=== PATIENT | female | born 1975 | race Caucasian/White ===

== ENCOUNTER 2019-06-12 13:28 | Inpatient (IN) | payer MEDICARE, MEDICAID, SELFPAY ==
[2019-06-12] VITALS (47 sets, daily range): BP systolic 94–188; BP diastolic 74–146; PULSE 73–114; RESP 10–27; TEMP 36.7–36.8; O2SAT 90–100; BMI 53.4
--- NOTE | 2019-06-12 13:40 | ED_ITS ---
Entered by Riana Colon, acting as scribe for HPI - Nausea/Vomiting/Diarrhea General: Chief complaint: Nausea/Vomiting/Diarrhea Stated complaint: abnormal labs,sent by doc Time Seen by Provider: 06/12/19 13:44 History of Present Illness: HPI Narrative: 44yo female presents with nausea and vomiting. Patient has been taking about 30 tabs of tylenol and benadryl daily. She denies any suicidal thoughts but states she just wants to sleep. She is seen at [facility]. Patient took 8 Tylenol this morning. Associated nausea: Yes Associated symtoms: Reports nausea; Denies change in vision, chest pain, dizziness, dysuria, headache(s) or palpitations Review of Systems Const: Denies: fever, chills or body aches Eyes: Denies: change in vision or blurry vision ENMT: Denies: throat pain, oral sores/lesions, dental pain, nasal discharge or nasal congestion Card: Denies: chest pain or palpitations Resp: Denies: shortness of breath GI: Reports: nausea and vomiting : Denies: flank pain, painful urination, urinary frequency, urinary urgency, urinary incontinence or blood in urine Musc: Denies: neck pain, back pain, extremity pain, extremity swelling, joint pain or joint swelling Skin/Breast: Denies: rash, itching or redness Neuro: Denies: headache, numbness in extremities, weakness in extremities, changes in sensation, lack of coordination, difficulty walking, frequent falls, dizziness, vertigo or confusion Psych: Denies: suicidal ideation Endo: Denies: excessive urination, excessive thirst, tired all the time or cold intolerance Hugo/Lymph: Denies: easy bruising, easy bleeding, petechiae, enlarged lymph nodes or tender lymph nodes PFSH ED PFSH: Medical History (Updated 06/12/19 @ 15:57 by Daniel Mccord MD) COPD (chronic obstructive pulmonary disease) Hypothyroidism Morbidly obese QUOC (obstructive sleep apnea) Polysubstance abuse Schizo-affective schizophrenia Surgical History (Updated 06/12/19 @ 15:46 by Daniel Mccord MD) History of appendectomy History of cholecystectomy Family History (Updated 06/12/19 @ 15:47 by Daniel Mccord MD) Other Hyperparathyroidism Psychiatric illness Social History (Updated 06/12/19 @ 15:47 by Daniel Mccord MD) Smoking and tobacco status: former smoker Alcohol intake: never Household members: significant other Housing: House Physical Exam Const: COMMON NORMALS: no apparent distress, oriented x3 and alert GENERAL APPEARANCE: cooperative, comfortable, well kempt and well developed NUTRITIONAL APPEARANCE: overweight ORIENTATION/CONSCIOUSNESS: Yes awake, Yes oriented to person, Yes oriented to place and Yes oriented to time HENMT: COMMON NORMALS: normocephalic, EAC's normal, TM's normal bilaterally and external nose normal HEAD & SCALP: normocephalic NOSE: external nose normal EXTERNAL AUDITORY CANAL: EAC's normal TYMPANIC MEMBRANE: TM's normal bilaterally MOUTH: oral and palatal mucosa normal, lip normal and tongue normal THROAT: posterior oropharynx normal and tonsils normal Eye: COMMON NORMALS: PERRL, EOMs intact bilaterally and conjunctivae normal CONJUNCTIVA: Yes conjunctivae normal PUPIL: Yes PERRL Neck/C-Spine: COMMON NORMALS: full ROM, no lymphadenopathy, supple, no meningeal signs and thyroid normal THYROID: thyroid normal and asymmetrical Lymph: LYMPHATIC: no lymphadenopathy noted Resp: COMMON NORMALS: normal respiratory effort and clear to auscultation bilaterally AUSCULTATION: clear to auscultation bilaterally Cardio: COMMON NORMALS: regular rate and regular rhythm RATE: regular rate RHYTHM: regular rhythm HEART SOUNDS: no murmurs GI: COMMON NORMALS: normal to inspection, nondistended, normoactive bowel sounds, soft to palpation and no hepatosplenomegaly PALPATION: Yes soft and Yes no hepatosplenomegaly : COMMON NORMALS: Yes no CVA tenderness BLADDER/KIDNEY EXAM: Yes no CVA tenderness Back/Pelvis: COMMON NORMALS: no CVA tenderness LUMBAR SPINE/LOWER BACK: Yes normal to inspection Extremity: COMMON NORMALS: normal to inspection Neuro: COMMON NORMALS: oriented x3 SENSORIUM/ORIENTATION: Yes alert, Yes oriented to person, Yes oriented to place and Yes oriented to time MENINGEAL SIGNS: Yes no meningeal signs Psych: COMMON NORMALS: mental status grossly normal and speech normal APPEARANCE: Yes well kempt SPEECH: Yes normal speech THOUGHT CONTENT: Yes normal thought content and No suicidality Skin: COMMON NORMALS: no rashes or lesions noted and skin turgor normal GENERAL SKIN EXAM: no rashes or lesions noted and turgor normal Course ED course: Patient Tylenol less than expected, liver enzymes not significantly elevated. Discussed with Dr. avila recommends admitting the patient to medical floor for clearance and then consult with psych once acetaminophen level has normalized. Vital Signs: Vital signs: Vital Signs Temperature 98.0 F 06/14/19 13:10 Pulse Rate 100 06/14/19 13:10 Respiratory Rate 20 H 06/14/19 13:10 Blood Pressure 100/68 06/14/19 13:10 Pulse Oximetry 93 06/14/19 13:10 MDM - Nausea/Vomiting/Diarrhea Lab Data: Labs: Lab Results 06/12/19 06/12/19 06/12/19 Range/Units 13:50 13:50 13:50 WBC 8.4 (4.0-10.0) 10^3/ uL RBC 3.89 L (4.1-5.3) 10^6/u L Hgb 11.2 L (11.5-15.3) g/dL Hct 34.6 L (37.0-47.0) % MCV 88.9 (81-99) fL MCH 28.8 (28.0-34.0) pg MCHC 32.4 (30.0-36.0) g/dL RDW 16.9 H (12.1-15.1) % Plt Count 320 (130-400) 10^3/c mm MPV 10.9 H (7.4-10.4) fL Neut % (Auto) 62.9 % Lymph % (Auto) 29.2 % Latimer % (Auto) 5.1 % Eos % (Auto) 1.7 % Baso % (Auto) 0.7 % Neut # (Auto) 5.3 (1.8-7.7) 10^3/u L Lymph # (Auto) 2.4 (0.8-4.8) 10^3/u L Latimer # (Auto) 0.4 (0.2-0.9) 10^3/u L Eos # (Auto) 0.1 (0.0-0.8) 10^3/u L Baso # (Auto) 0.1 (0.0-0.1) 10^3/u L Nucleated RBC % (a uto) 0 % Nucleated RBCs # 0.0 /100WBC PT 13.90 H (10.5-13.3) SECO NDS INR 1.04 (0.8-1.2) Sodium 137 (136-145) mmol/L Potassium 3.8 (3.5-5.1) mmol/L Chloride 103 (98-107) mmol/L Carbon Dioxide 20 L (22-29) mmol/L Anion Gap 17.8 (5-19) BUN 7 (6-20) mg/dL Creatinine 0.6 (0.5-0.9) mg/dL GFR Calculation 109.1 (90-130) mL/min Glucose 120 H (65-115) mg/dL Calcium 7.7 L (8.5-10.5) mg/dL Iron (37-145) ug/dL TIBC mcg/dl % Saturation (20-50) % Unsat Iron Binding (112-347) ug/dL Total Bilirubin 0.3 (0.15-1.2) mg/dL AST 21 (0-32) U/L ALT 14 (0-33) U/L Alkaline Phosphata se 75 (35-105) IU/L Total Protein 6.7 (6.6-8.7) g/dL Albumin 3.5 (3.5-5.2) g/dL Globulin 3.2 (1.3-4.6) g/dL Lipase (13-60) U/L Procalcitonin (0-0.5) ng/mL TSH (0.27-4.20) uIU/ mL Urine Color (Yellow) Urine Appearance (CLEAR) Urine pH (5-7) Ur Specific Gravit y (1.005-1.030) Urine Protein (Negative) Urine Glucose (UA) (Normal) Urine Ketones (Negative) Urine Blood (Negative) Urine Nitrate (Negative) Urine Bilirubin (NEGATIVE) Urine Urobilinogen (Negative) mg/dL Ur Leukocyte Olga ase (Negative) Salicylates (3-10) mg/dL Urine Opiates Scre en (Negative) ng/mL U Opiates 300ng/mL cut (Negative) ng/mL Ur Oxycodone Scree n (Negative) ng/mL Urine Methadone Sc reen (Negative) ng/mL Acetaminophen 49.0 H (10-30) ug/mL Ur Barbiturates Sc reen (Negative) ng/mL U Tricyclic Antide press (Negative) ng/mL Ur Phencyclidine S crn (Negative) ng/mL Ur Amphetamines Sc reen (Negative) ng/mL U Methamphetamines Scrn (Negative) ng/mL Urine MDMA (Negative) ng/mL U Benzodiazepines Scrn (Negative) ng/mL Urine Cocaine Scre en (Negative) ng/mL U Marijuana (THC) Screen (Negative) ng/mL Ethyl Alcohol (0-10) mg/dL 06/12/19 06/12/19 06/12/19 Range/Units 13:50 13:50 13:50 WBC (4.0-10.0) 10^3/ uL RBC (4.1-5.3) 10^6/u L Hgb (11.5-15.3) g/dL Hct (37.0-47.0) % MCV (81-99) fL MCH (28.0-34.0) pg MCHC (30.0-36.0) g/dL RDW (12.1-15.1) % Plt Count (130-400) 10^3/c mm MPV (7.4-10.4) fL Neut % (Auto) % Lymph % (Auto) % Latimer % (Auto) % Eos % (Auto) % Baso % (Auto) % Neut # (Auto) (1.8-7.7) 10^3/u L Lymph # (Auto) (0.8-4.8) 10^3/u L Latimer # (Auto) (0.2-0.9) 10^3/u L Eos # (Auto) (0.0-0.8) 10^3/u L Baso # (Auto) (0.0-0.1) 10^3/u L Nucleated RBC % (a uto) % Nucleated RBCs # /100WBC PT (10.5-13.3) SECO NDS INR (0.8-1.2) Sodium (136-145) mmol/L Potassium (3.5-5.1) mmol/L Chloride (98-107) mmol/L Carbon Dioxide (22-29) mmol/L Anion Gap (5-19) BUN (6-20) mg/dL Creatinine (0.5-0.9) mg/dL GFR Calculation (90-130) mL/min Glucose (65-115) mg/dL Calcium (8.5-10.5) mg/dL Iron 46 (37-145) ug/dL TIBC 336 mcg/dl % Saturation 13.6 L (20-50) % Unsat Iron Binding 290 (112-347) ug/dL Total Bilirubin (0.15-1.2) mg/dL AST (0-32) U/L ALT (0-33) U/L Alkaline Phosphata se (35-105) IU/L Total Protein (6.6-8.7) g/dL Albumin (3.5-5.2) g/dL Globulin (1.3-4.6) g/dL Lipase 16 (13-60) U/L Procalcitonin 24.93 H (0-0.5) ng/mL TSH 2.20 (0.27-4.20) uIU/ mL Urine Color (Yellow) Urine Appearance (CLEAR) Urine pH (5-7) Ur Specific Gravit y (1.005-1.030) Urine Protein (Negative) Urine Glucose (UA) (Normal) Urine Ketones (Negative) Urine Blood (Negative) Urine Nitrate (Negative) Urine Bilirubin (NEGATIVE) Urine Urobilinogen (Negative) mg/dL Ur Leukocyte Olga ase (Negative) Salicylates (3-10) mg/dL Urine Opiates Scre en (Negative) ng/mL U Opiates 300ng/mL cut (Negative) ng/mL Ur Oxycodone Scree n (Negative) ng/mL Urine Methadone Sc reen (Negative) ng/mL Acetaminophen (10-30) ug/mL Ur Barbiturates Sc reen (Negative) ng/mL U Tricyclic Antide press (Negative) ng/mL Ur Phencyclidine S crn (Negative) ng/mL Ur Amphetamines Sc reen (Negative) ng/mL U Methamphetamines Scrn (Negative) ng/mL Urine MDMA (Negative) ng/mL U Benzodiazepines Scrn (Negative) ng/mL Urine Cocaine Scre en (Negative) ng/mL U Marijuana (THC) Screen (Negative) ng/mL Ethyl Alcohol (0-10) mg/dL 06/12/19 06/12/19 06/12/19 Range/Units 13:55 13:55 13:55 WBC (4.0-10.0) 10^3/ uL RBC (4.1-5.3) 10^6/u L Hgb (11.5-15.3) g/dL Hct (37.0-47.0) % MCV (81-99) fL MCH (28.0-34.0) pg MCHC (30.0-36.0) g/dL RDW (12.1-15.1) % Plt Count (130-400) 10^3/c mm MPV (7.4-10.4) fL Neut % (Auto) % Lymph % (Auto) % Latimer % (Auto) % Eos % (Auto) % Baso % (Auto) % Neut # (Auto) (1.8-7.7) 10^3/u L Lymph # (Auto) (0.8-4.8) 10^3/u L Latimer # (Auto) (0.2-0.9) 10^3/u L Eos # (Auto) (0.0-0.8) 10^3/u L Baso # (Auto) (0.0-0.1) 10^3/u L Nucleated RBC % (a uto) % Nucleated RBCs # /100WBC PT (10.5-13.3) SECO NDS INR (0.8-1.2) Sodium (136-145) mmol/L Potassium (3.5-5.1) mmol/L Chloride (98-107) mmol/L Carbon Dioxide (22-29) mmol/L Anion Gap (5-19) BUN (6-20) mg/dL Creatinine (0.5-0.9) mg/dL GFR Calculation (90-130) mL/min Glucose (65-115) mg/dL Calcium (8.5-10.5) mg/dL Iron (37-145) ug/dL TIBC mcg/dl % Saturation (20-50) % Unsat Iron Binding (112-347) ug/dL Total Bilirubin (0.15-1.2) mg/dL AST (0-32) U/L ALT (0-33) U/L Alkaline Phosphata se (35-105) IU/L Total Protein (6.6-8.7) g/dL Albumin (3.5-5.2) g/dL Globulin (1.3-4.6) g/dL Lipase (13-60) U/L Procalcitonin (0-0.5) ng/mL TSH (0.27-4.20) uIU/ mL Urine Color Yellow (Yellow) Urine Appearance Clear (CLEAR) Urine pH 5 (5-7) Ur Specific Gravit y 1.010 (1.005-1.030) Urine Protein Neg (Negative) Urine Glucose (UA) Norm (Normal) Urine Ketones Negative (Negative) Urine Blood Neg (Negative) Urine Nitrate Negative (Negative) Urine Bilirubin Neg (NEGATIVE) Urine Urobilinogen Norm (Negative) mg/dL Ur Leukocyte Olga ase Negative (Negative) Salicylates (3-10) mg/dL Urine Opiates Scre en Negative Negative (Negative) ng/mL U Opiates 300ng/mL cut Negative (Negative) ng/mL Ur Oxycodone Scree n Negative (Negative) ng/mL Urine Methadone Sc reen Negative (Negative) ng/mL Acetaminophen (10-30) ug/mL Ur Barbiturates Sc reen Negative Negative (Negative) ng/mL U Tricyclic Antide press Positive H (Negative) ng/mL Ur Phencyclidine S crn Negative Negative (Negative) ng/mL Ur Amphetamines Sc reen Negative Negative (Negative) ng/mL U Methamphetamines Scrn Negative (Negative) ng/mL Urine MDMA Positive H (Negative) ng/mL U Benzodiazepines Scrn Negative Negative (Negative) ng/mL Urine Cocaine Scre en Negative Negative (Negative) ng/mL U Marijuana (THC) Screen Positive H Positive H (Negative) ng/mL Ethyl Alcohol (0-10) mg/dL 06/12/19 Range/Units 15:00 WBC (4.0-10.0) 10^3/ uL RBC (4.1-5.3) 10^6/u L Hgb (11.5-15.3) g/dL Hct (37.0-47.0) % MCV (81-99) fL MCH (28.0-34.0) pg MCHC (30.0-36.0) g/dL RDW (12.1-15.1) % Plt Count (130-400) 10^3/c mm MPV (7.4-10.4) fL Neut % (Auto) % Lymph % (Auto) % Latimer % (Auto) % Eos % (Auto) % Baso % (Auto) % Neut # (Auto) (1.8-7.7) 10^3/u L Lymph # (Auto) (0.8-4.8) 10^3/u L Latimer # (Auto) (0.2-0.9) 10^3/u L Eos # (Auto) (0.0-0.8) 10^3/u L Baso # (Auto) (0.0-0.1) 10^3/u L Nucleated RBC % (a uto) % Nucleated RBCs # /100WBC PT (10.5-13.3) SECO NDS INR (0.8-1.2) Sodium (136-145) mmol/L Potassium (3.5-5.1) mmol/L Chloride (98-107) mmol/L Carbon Dioxide (22-29) mmol/L Anion Gap (5-19) BUN (6-20) mg/dL Creatinine (0.5-0.9) mg/dL GFR Calculation (90-130) mL/min Glucose (65-115) mg/dL Calcium (8.5-10.5) mg/dL Iron (37-145) ug/dL TIBC mcg/dl % Saturation (20-50) % Unsat Iron Binding (112-347) ug/dL Total Bilirubin (0.15-1.2) mg/dL AST (0-32) U/L ALT (0-33) U/L Alkaline Phosphata se (35-105) IU/L Total Protein (6.6-8.7) g/dL Albumin (3.5-5.2) g/dL Globulin (1.3-4.6) g/dL Lipase (13-60) U/L Procalcitonin (0-0.5) ng/mL TSH (0.27-4.20) uIU/ mL Urine Color (Yellow) Urine Appearance (CLEAR) Urine pH (5-7) Ur Specific Gravit y (1.005-1.030) Urine Protein (Negative) Urine Glucose (UA) (Normal) Urine Ketones (Negative) Urine Blood (Negative) Urine Nitrate (Negative) Urine Bilirubin (NEGATIVE) Urine Urobilinogen (Negative) mg/dL Ur Leukocyte Olga ase (Negative) Salicylates < 0.3 L (3-10) mg/dL Urine Opiates Scre en (Negative) ng/mL U Opiates 300ng/mL cut (Negative) ng/mL Ur Oxycodone Scree n (Negative) ng/mL Urine Methadone Sc reen (Negative) ng/mL Acetaminophen (10-30) ug/mL Ur Barbiturates Sc reen (Negative) ng/mL U Tricyclic Antide press (Negative) ng/mL Ur Phencyclidine S crn (Negative) ng/mL Ur Amphetamines Sc reen (Negative) ng/mL U Methamphetamines Scrn (Negative) ng/mL Urine MDMA (Negative) ng/mL U Benzodiazepines Scrn (Negative) ng/mL Urine Cocaine Scre en (Negative) ng/mL U Marijuana (THC) Screen (Negative) ng/mL Ethyl Alcohol < 10 (0-10) mg/dL Discharge Plan Discharge Patient Disposition: Admitted As Inpatient Admit Provider: Daniel Mccord Condition: Stable Discharge Orders: Discharge Order (Routine); Ordered 06/14/19 Ordered By: Daniel Mccord Referrals: Elizabeth Lee MD [Primary Care Provider] - 2 weeks (Please call Saturday to set up a follow up appointment) [facility], [Staff Physician] - 2 weeks (Please call Saturday to set up a follow up appointment) Discharge Diet: As Directed Discharge Activity: Resume usual activity Patient Instructions: Acetaminophen Overdose (DC) Additional Instructions: [place] diet consisting of bananas, rice, applesauce, toast for next 7 to 10 days and advance eventually. Please avoid Tylenol at least for next 1 to 2 months. If taking ibuprofen as discussed do not take more than 3 tablets a day spread every 8 hours with meals. Please speak with your pain doctor in [place] if possible to lower Suboxone 4/1 every 8 hours. Discharge Date/Time: 06/12/19 16:20 Coding Level of Care Code ED Heading And Priming Operator for Chg Fwd Exam Comprehensive The documentation recorded by the Darlene villeda Bailey Leadawn, accurately reflects the service I personally performed and the decisions made by Dashawn walls Curtis L, DO Jun 12, 2019 13:28
--- NOTE | 2019-06-12 13:48 | ECG_ITS ---
Measurements Intervals [place] Rate: 92 P: 60 MT: 131 QRS: 14 QRSD: 89 T: 31 QT: 362 QTc: 449 SINUS RHYTHM Compared to ECG 11/22/2017 14:37:06 Sinus tachycardia no longer present T-wave abnormality no longer present Electronically Signed On 06-12-2019 14:15:39 CATERPILLAR DRIVER by Julius Chang M.D. [email or web address]
--- NOTE | 2019-06-12 14:04 | PC.NURSE ---
Patient states she has been having trouble sleeping so she started taking Tylenol PM, 8-10 pills three times daily. Patient states that she just wants to sleep, states she is so tired, but has trouble falling asleep. Patient has c/o pain in the abdomen with palpation and states she has been unable to keep solid foods down for 3-5 days now, she can however, drink liquids. Patient questioned about increased depression at this time, patient denies an increase or change in her depression. Patient questioned regarding suicidal ideation, patient denies multiple times that she is suicidal, she states she does not want to .
[2019-06-12 14:12] LABS: Basophils # 0.1 10^3/uL (0.0-0.1); Basophils % 0.7 %; Eosinophils # 0.1 10^3/uL (0.0-0.8); Eosinophils % 1.7 %; Hematocrit 34.6 % (37.0-47.0); Hemoglobin 11.2 g/dL (11.5-15.3); Lymphocytes # 2.4 10^3/uL (0.8-4.8); Lymphocytes % 29.2 %; Mean Corpuscular HGB Conc 32.4 g/dL (30.0-36.0); Mean Corpuscular Hemoglobin 28.8 pg (28.0-34.0); Mean Corpuscular Volume 88.9 fL (81-99); Mean Platelet Volume 10.9 fL (7.4-10.4); Monocytes # 0.4 10^3/uL (0.2-0.9); Monocytes % 5.1 %; Neutrophils # 5.3 10^3/uL (1.8-7.7); Neutrophils % 62.9 %; Nucleated Red Blood Cells % 0 %; Platelet Count 320 10^3/cmm (130-400); Red Blood Count 3.89 10^6/uL (4.1-5.3); Red Cell Distribution Width 16.9 % (12.1-15.1); White Blood Count 8.4 10^3/uL (4.0-10.0)
[2019-06-12 14:13] LABS: Add Urine Microscopic? NO
[2019-06-12 14:20] LABS: Alanine Aminotransferase 14 U/L (0-33); Albumin Level 3.5 g/dL (3.5-5.2); Alkaline Phosphatase 75 IU/L (35-105); Anion Gap 17.8 (5-19); Aspartate Amino Transferase 21 U/L (0-32); Blood Urea Nitrogen 7 mg/dL (6-20); Calcium 7.7 mg/dL (8.5-10.5); Carbon Dioxide 20 mmol/L (22-29); Chloride 103 mmol/L (98-107); Globulin 3.2 g/dL (1.3-4.6); Glomerular Filtration Rate 109.1 mL/min (90-130); Glucose 120 mg/dL (65-115); Potassium 3.8 mmol/L (3.5-5.1); Sodium 137 mmol/L (136-145); Total Bilirubin 0.3 mg/dL (0.15-1.2); Total Protein 6.7 g/dL (6.6-8.7)
[2019-06-12 14:24] LABS: Bilirubin Urine Neg (NEGATIVE); Blood Urine Neg (Negative); Glucose Urine UA Norm (Normal); Ketones Urine Negative (Negative); Leukocyte Esterase Urine Negative (Negative); Nitrate Urine Negative (Negative); Protein Urine Neg (Negative); Urine Appearance Clear (CLEAR); Urine Color Yellow (Yellow); Urobilinogen Urine Norm (Negative); pH Urine 5 (5-7)
[2019-06-12 14:48] LABS: Amphetamines Screen Urine Negative (Negative); Barbiturates Screen Urine Negative (Negative); Benzodiazepines Screen Urine Negative (Negative); Cocaine Screen Urine Negative (Negative); Opiate Screen Urine Negative (Negative); PCP Screen Urine Negative (Negative); THC Screen Urine Positive (Negative)
--- NOTE | 2019-06-12 14:48 | PC.NURSE ---
Spoke with poison control. They will be faxing over a packet specific to our patient's ingestion and will call back at a later time to follow up on the patient.
[2019-06-12] MEDS: acetylcysteine 15,000 MG in dextrose 5% 250 ML 325 MG IV (14:59)
[2019-06-12 15:04] LABS: INR 1.04 (0.8-1.2)
[2019-06-12] MEDS: famotidine 20 mg Tablet PO (15:16)
[2019-06-12 15:36] LABS: Amphetamines Screen Urine Negative (Negative); Barbiturates Screen Urine Negative (Negative); Benzodiazepines Screen Urine Negative (Negative); Cocaine Screen Urine Negative (Negative); Methamphetamines Urine Screen Negative (Negative); Methylenedioxymethamphetamine Positive (Negative); Opiate Screen Urine Negative (Negative); Opiate Urine Negative (Negative); PCP Screen Urine Negative (Negative); THC Screen Urine Positive (Negative); Tricyclic Antidepressants UR Positive (Negative)
[2019-06-12 15:38] LABS: Alcohol Level < 10 mg/dL (0-10); Salicylate < 0.3 mg/dL (3-10)
--- NOTE | 2019-06-12 15:39 | P.HP_ITS ---
Providers/Chief Complaint Primary Care Provider: Elizabeth Lee MD Chief Complaint: abnormal labs,sent by doc History of Present Illness Darlin Gillespie is a 44 year old female with past medical history of polysubstance abuse, she is less effective disorder, history of suicidal attempts, history of Seroquel overdose,h/o tylenol overdose causing liver damage in past as per records, morbid obesity, COPD, QUOC with surgical history of gastric bypass, cholecystectomy, appendectomy who presents to the ER today because of right upper quadrant abdominal pain getting worse for last 4 to 5 days associated with vomiting for the last 10 to 12 days. She stated vomiting is usually nonprojectile, not bloodstained, not foul-smelling usually consists of whatever she eats. She states she is not able to eat at present for last 2 to 3 days. Of note she also gives history of taking 8 to 10 tablets 3 times a day of Tylenol PM for last 30 days because of knee pain. She states she was taking that much dose just to make sure she can sleep without being in pain. She denies of having any active suicidal ideations or homicidal ideations. She denies of having any diarrhea, melena, hematochezia, dysuria, headache, dizziness, palpitations, blurry vision, dryness or increased salivation. In ER she was found to have a Tylenol level of 49 and she was started on a loading dose of acetylcysteine. Review of Systems Const: Denies: fever, chills, body aches, change in appetite, malaise, night sweats, diaphoresis, change in sleep pattern, daytime sleepiness or snoring Eyes: Denies: change in vision, blurry vision, photophobia, eye discomfort or eye discharge ENMT: Denies: throat pain, enlarged tonsils, hoarseness, mouth pain, oral sores/lesions, dry mouth, tinnitus, nasal congestion or post nasal drip Card: Denies: chest pain, palpitations, irregular heart rhythm, edema, swelling of feet/ankles, lightheadedness, syncope, pre-syncope, shortness of breath on exertion, shortness of breath when lying down, leg pain with exertion or bluish discoloration of hands/feet Resp: Denies: shortness of breath, productive cough, non-productive cough, wheezing, stridor, pain on inspiration, change in phlegm color, coughing up blood or chest congestion GI: Reports: abdominal pain, nausea and vomiting; Denies: vomiting blood, coffee grounds in vomit, difficulty swallowing, heartburn/indigestion, diarrhea, constipation, bloating, cramping, change in bowel habits, painful bowel movements, blood in stool or black tarry stool : Denies: flank pain, painful urination, urinary frequency, urinary urgency, urinary hesitancy, nighttime urination or blood in urine Musc: Denies: neck pain, back pain, extremity pain, joint pain, joint swelling, redness, joint stiffness or limited range of motion Neuro: Denies: headache, numbness in extremities, weakness in extremities, changes in sensation, lack of coordination, difficulty walking, frequent falls, dizziness, vertigo, confusion, slurred speech, difficulty communicating thoughts or seizure-like activity Psych: Denies: anxiety, depression, mood swings, panic attacks, hopelessness or irritability Endo: Denies: excessive urination, excessive thirst, tired all the time, cold intolerance, excessive sweating, flushing or heat intolerance Hugo/Lymph: Denies: easy bruising or easy bleeding All/Imm: Denies: tongue swelling, facial swelling or acute wheezing Medications/Allergies Home Medications Medication Instructions Recorded Confirmed Last Taken Type albuterol sulfate 2 puff INHALATION Q4H PRN 06/12/19 06/12/19 06/11/19 History buprenorphine-naloxone 1 film SUBLINGUAL Q8H 06/12/19 06/12/19 Unknown History buspirone 15 mg PO TID 06/12/19 06/12/19 Unknown History calcitriol 0.5 mcg PO BID 06/12/19 06/12/19 06/11/19 History calcium carbonate [Calcium 500] 500 mg PO DAILY 06/12/19 06/12/19 06/11/19 History cyproheptadine 8 mg PO BEDTIME 06/12/19 06/12/19 06/11/19 History erenumab-aooe [Aimovig 70 mg SUBCUT Q30D 06/12/19 06/12/19 05/23/19 History Autoinjector] gabapentin 800 mg PO DAILY 06/12/19 06/12/19 06/11/19 History levothyroxine 25 mcg PO DAILY 06/12/19 06/12/19 06/11/19 History meloxicam 7.5 mg PO BID 06/12/19 06/12/19 06/11/19 History pantoprazole 40 mg PO DAILY 06/12/19 06/12/19 06/11/19 History risperidone 3 mg PO BEDTIME 06/12/19 06/12/19 06/11/19 History rizatriptan See Rx Instructions .ROUTE .COMPLEX 06/12/19 06/12/19 Unknown History sertraline 100 mg PO DAILY 06/12/19 06/12/19 Unknown History topiramate [Topamax] 100 mg PO BID 06/12/19 06/12/19 06/11/19 History trazodone 150 - 300 mg PO BEDTIME 06/12/19 06/12/19 06/12/19 History Allergies Allergy/AdvReac Type Severity Reaction Status Date / Time cephalexin [From Keflex] Allergy ALGY-Swell Verified 06/12/19 13:35 Lip/Tongue/Throat doxycycline Allergy ALGY-Rash Verified 06/12/19 13:35 PFSH Acute PFSH: Medical History (Updated 06/12/19 @ 15:57 by Daniel Mccord MD) COPD (chronic obstructive pulmonary disease) Hypothyroidism Morbidly obese QUOC (obstructive sleep apnea) Polysubstance abuse Schizo-affective schizophrenia Surgical History (Updated 06/12/19 @ 15:46 by Daniel Mccord MD) History of appendectomy History of cholecystectomy Family History (Updated 06/12/19 @ 15:47 by Daniel Mccord MD) Other Hyperparathyroidism Psychiatric illness Social History (Updated 06/12/19 @ 15:47 by Daniel Mccord MD) Smoking and tobacco status: former smoker Alcohol intake: never Substance/Drug Use: former Household members: significant other Housing: House Vitals/I&O/Wt Last Vital Signs Temp 98.3 F 06/12/19 13:33 Pulse 79 06/12/19 14:01 Resp 16 06/12/19 14:01 BP 172/105 06/12/19 14:01 Pulse Ox 100 06/12/19 14:01 Weight last 48 hrs Weight 136.985 kg Physical Exam Narrative: EXAM NARRATIVE: General: No acute distress, AO x3 HEENT: PERRLA, pupils bilaterally equal and reactive Chest: Normal vesicular breath sounds, no added sounds, equal good air entry bilaterally CVS: S1-S2 regular, no murmurs, no tachycardia, no gallops, no rubs Abdomen: Soft, nontender, no organomegaly, bowel sounds present Neuro: No focal deficits, no facial deformity, AO x3, power 5/5 in all limbs Data : 06/12/19 13:50 06/12/19 13:50 A&P Assessment and plan (1) Tylenol overdose: Status: Acute Code(s): T39.1X1A - Poisoning by 4-Aminophenol derivatives, accidental (unintentional), initial encounter (2) Polysubstance abuse: Status: Acute Code(s): F19.10 - Other psychoactive substance abuse, uncomplicated (3) COPD (chronic obstructive pulmonary disease): Status: Acute Code(s): J44.9 - Chronic obstructive pulmonary disease, unspecified (4) QUOC (obstructive sleep apnea): Status: Acute Code(s): G47.33 - Obstructive sleep apnea (adult) (pediatric) (5) Morbidly obese: Status: Acute Code(s): E66.01 - Morbid (severe) obesity due to excess calories (6) Schizo-affective schizophrenia: Status: Acute Code(s): F25.9 - Schizoaffective disorder, unspecified (7) Hypothyroidism: Status: Acute Code(s): E03.9 - Hypothyroidism, unspecified (8) Right upper quadrant abdominal pain: Status: Acute Code(s): R10.11 - Right upper quadrant pain (9) Vomiting: Status: Acute Code(s): R11.10 - Vomiting, unspecified Additional A&P Information Tylenol overdose: Patient gives history of taking more than 30 tablets of Tylenol for last 30 days every day though her Tylenol levels on admission 49 which are elevated though not as high as 1 would expected. Patient does have right upper quadrant tenderness nausea and vomiting which is very concerning. Case discussed with poison control. We will plan to do N-acetylcysteine loading followed by maintenance dose. We will check Tylenol level and liver functions in 10 hours if liver functions are not worsening and Tylenol levels less than 10 can plan to discontinue the N- acetylcysteine treatment at that time. We will add urine drug screen 12, alcohol level, salicylate level to the labs will be done. Normal saline at 75 cc/h. Check CMP every 12 hours. Famotidine every 12 hour. Benadryl poisoning: Patient does not have any signs of cholinergic poisoning. She does not have any mydriasis, excessive secretion, dysuria, diarrhea but does have high blood pressure and mildly cardia. We will admit to ICU for further monitoring for respiratory status. RUQ pain and nausea: Multifactorial. Will check CT abdomen and liver USG Lipase level Full liquid diet for now and if tolerated will go for bland diet Zofran 4 mg as needed For hypertension: we will start patient on amlodipine 10 mg daily. Hydralazine 10 mg IV every 4 hours as needed for systolic blood pressure of more than 170 mmHg. History of COPD/QUOC: DuoNeb's every 6 hours. Oxygen supplementation keeping saturation 90%. Shizoeffective disorder: We will continue patient on a chronic psych medications. Have confirmed with the poison control that this medication would not be interacting with the current overdose. But will hold off on cyproheptadine given potential liver dysfunction. Decrease trazadone to 150 mg Confusion on saboxone dosage so will do 4mg/1mg BID to avoid withdrawal. 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
--- NOTE | 2019-06-12 15:56 | CT_ITS ---
WS: [id number] CT ABDOMEN PELVIS TECHNIQUE: Contrast-enhanced CT of the abdomen and pelvis with coronal and sagittal reformatted image s. CLINICAL INFORMATION: tylenol poisoning/ RUQ pain COMPARISON: August 22, 2016 DLP: 2039.[address] scans at [facility] use at least one of these dose optimization techniques: automat ed exposure control; mA and/or kV adjustment per patient size (includes targeted exams where dose is matched to clinical indication); or iterative reconstruction. FINDINGS: Mild diffuse fatty infiltration the liver. Normal portal vein and splenic vein. Cholecystectomy clips . Normal spleen. Normal pancreas. Lung bases are well aerated. Moderate esophageal hiatal hernia. Aviva or postoperative changes at the GE junction. Prior postoperative gastric bypass. Adrenal glands are n ormal. Normal renal parenchymal enhancement. No hydronephrosis. Normal caliber abdominal aorta. Normal sigmoid colon. 2 small supraumbilical ventral abdominal wall hernias with partial bulbous murali iation of adjacent colon. One of these hernias has a narrow neck and is at risk for incarceration. No evidence of ischemia or fluid. No evidence of small or large bowel obstruction. Tiny fat-containing umbilical hernia. Left ovarian cyst measuring 2.6 cm. Small right ovarian cyst me asuring 1.8 cm. No abdominal or inguinal lymphadenopathy. Moderate central canal stenosis L4-5 due to disc bulging with facet arthropathy ligament flavum hypertrophy. CT/CT abdomen pelvis w con* [id number] IMPRESSION: 1. Mild diffuse fatty infiltration of the liver. 2. Small supraumbilical ventral abdominal wall hernias with herniation of 2 sm all loops of colon. One of these hernias has a narrow neck and is at risk for i ncarceration. Sagittal series image 53 3. No evidence of small or large bowel obstruction. 4. Moderate esophageal hiatal hernia with prior gastric bypass. Postoperative changes at the GE junction. 5. Bilateral ovarian cysts larger on the left measuring 2.6 cm. This can be fo llowed up with ultrasound on an elective basis. 6. Prior cholecystectomy.
--- NOTE | 2019-06-12 15:56 | US_ITS ---
WS: [id number] ABDOMINAL ULTRASOUND LIMITED REASON FOR VISIT: ruq pain TECHNIQUE: Grayscale and Doppler ultrasound examination of the abdomen. FINDINGS: Pancreas: Poorly seen due to overriding gas. Abdominal aorta and IVC: Appears to be within normal limits. Liver: Liver measures 19.9 cm in length. Normal hepatopedal portal system circulation. Fatty infiltra tion. Gallbladder: Prior cholecystectomy. The common bile duct measured measured 0.58 cm Right kidney: Right kidney measures 9.9 cm x 5.8 cm x 4.2 cm. Right kidney cortex measures 1.43 cm. N o hydronephrosis no stones. US/US liver [id number] IMPRESSION: Enlarged liver with mild fatty infiltration. Status post cholecystectomy.
[2019-06-12] MEDS: iohexol 300 mg/mL 100 mL Btl 95 ML IV (16:24)
[2019-06-12 16:27] LABS: Iron 46 ug/dL (37-145); Percent Saturation 13.6 % (20-50); Total Iron Binding Capacity 336 mcg/dl; Unsaturated Iron Binding 290 ug/dL (112-347)
[2019-06-12 17:58] LABS: Procalcitonin 24.93 ng/mL (0-0.5)
[2019-06-12 19:05] LABS: Lipase 16 U/L (13-60)
[2019-06-12] MEDS: sodium chloride 0.9% 1,000 ML 75 ML IV (19:08)
[2019-06-12] MEDS: calcitriol 0.25 mcg Capsule 0.5 MCG PO (19:09)
[2019-06-12] MEDS: enoxaparin 40 mg/0.4 mL Syringe SUBCUT (19:10)
[2019-06-12] MEDS: amlodipine 10 mg Tablet PO (19:10)
[2019-06-12] MEDS: topiramate 100 mg Tablet PO (19:10)
[2019-06-12] MEDS: famotidine 20 mg/2 mL INJ IVP (19:10)
[2019-06-12] MEDS: buprenorphine-naloxone 4-1 mg Film 1 EACH SUBLINGUAL (19:11)
[2019-06-12] MEDS: ipratropium-albuterol 3 mL Neb INHALATION (20:41)
[2019-06-12] MEDS: ondansetron 2 mg/ML SDV 2 mL 4 MG IVP (20:45)
[2019-06-12] MEDS: trazodone 150 mg Tablet PO (22:38)
[2019-06-12] MEDS: morphine 4 mg/mL SDV 1 mL 2 MG IVP (22:39)
[2019-06-13] VITALS (10 sets, daily range): BP systolic 118; BP diastolic 75–77; PULSE 90–117; RESP 16–20; TEMP 36.8; O2SAT 96–99; BMI 53.1
[2019-06-13] MEDS: hyDRALAzine 20 mg/mL INJ 1 mL 10 MG IVP (02:05)
[2019-06-13] MEDS: ipratropium-albuterol 3 mL Neb INHALATION ×4 (02:05→20:13)
[2019-06-13 02:46] LABS: Alanine Aminotransferase 12 U/L (0-33); Albumin Level 3.2 g/dL (3.5-5.2); Alkaline Phosphatase 64 IU/L (35-105); Aspartate Amino Transferase 15 U/L (0-32); Globulin 2.9 g/dL (1.3-4.6); Total Bilirubin 0.3 mg/dL (0.15-1.2); Total Protein 6.1 g/dL (6.6-8.7)
[2019-06-13 02:59] LABS: Acetaminophen < 5.0 ug/mL (10-30)
[2019-06-13 04:44] LABS: Basophils % 0.4 %; Eosinophils % 0.2 %; Hematocrit 34.1 % (37.0-47.0); Hemoglobin 10.9 g/dL (11.5-15.3); Lymphocytes # 1.8 10^3/uL (0.8-4.8); Lymphocytes % 18.3 %; Mean Corpuscular Hemoglobin 29.5 pg (28.0-34.0); Mean Corpuscular Volume 92.2 fL (81-99); Mean Platelet Volume 10.8 fL (7.4-10.4); Monocytes # 0.8 10^3/uL (0.2-0.9); Monocytes % 7.7 %; Neutrophils # 7.3 10^3/uL (1.8-7.7); Neutrophils % 73.1 %; Nucleated Red Blood Cells % 0 %; Platelet Count 267 10^3/cmm (130-400); Red Cell Distribution Width 16.9 % (12.1-15.1); White Blood Count 9.9 10^3/uL (4.0-10.0)
[2019-06-13 04:52] LABS: INR 1.06 (0.8-1.2)
[2019-06-13] MEDS: famotidine 20 mg/2 mL INJ IVP ×2 (04:58→15:57)
[2019-06-13] MEDS: sodium chloride 0.9% 1,000 ML 75 ML IV (04:58)
[2019-06-13 05:13] LABS: Alanine Aminotransferase 12 U/L (0-33); Alkaline Phosphatase 62 IU/L (35-105); Anion Gap 17.5 (5-19); Aspartate Amino Transferase 15 U/L (0-32); Blood Urea Nitrogen 5 mg/dL (6-20); Calcium 7.6 mg/dL (8.5-10.5); Carbon Dioxide 21 mmol/L (22-29); Chloride 103 mmol/L (98-107); Globulin 3.1 g/dL (1.3-4.6); Glomerular Filtration Rate 134.7 mL/min (90-130); Glucose 129 mg/dL (65-115); Potassium 3.5 mmol/L (3.5-5.1); Sodium 138 mmol/L (136-145); Total Bilirubin 0.3 mg/dL (0.15-1.2); Total Protein 6.1 g/dL (6.6-8.7)
[2019-06-13] MEDS: ondansetron 2 mg/ML SDV 2 mL 4 MG IVP (06:21)
--- NOTE | 2019-06-13 08:49 | P.PN_ITS ---
Subjective Subjective: Interval history: Overnight patient's N-acetylcysteine was stopped at around 4 as her liver functions were normal and acetaminophen level was less than 5. This morning on my evaluation patient sitting comfortably in chair. Complains of mild nausea on and off, states her right upper quadrant pain is better but still bothering her little bit. Denies of having any vomiting, headache, rash, dysuria, constipation or diarrhea. Patient is concerned about 2 sores on her belly under the pannus. Vitals/I&O/Wt Last Vital Signs Temp 98.2 F 06/12/19 17:00 Pulse 90 06/13/19 07:54 Resp 16 06/13/19 07:54 BP 146/87 06/12/19 22:00 Pulse Ox 99 06/13/19 07:54 06/12/19 06/13/19 06/13/19 22:59 06:59 14:59 Intake Total 1150 / 1150 1498.48 / 2648.48 Balance 1150 / 1150 1498.48 / 2648.48 Weight last 48 hrs Weight 136.078 kg Weight 136.985 kg Physical Exam 2 Narrative: EXAM NARRATIVE: General: No acute distress, AO x3 HEENT: PERRLA, pupils bilaterally equal and reactive Chest: Normal vesicular breath sounds, no added sounds, equal good air entry bilaterally CVS: S1-S2 regular, no murmurs, no tachycardia, no gallops, no rubs Abdomen: Soft, nontender, no organomegaly, bowel sounds present. Patient does have 2 small well crusted, not foul-smelling no discharge superficial ulcers in the pannus. Neuro: No focal deficits, no facial deformity, AO x3, power 5/5 in all limbs Data : 06/13/19 04:16 06/13/19 04:16 A&P Assessment and plan (1) Tylenol overdose: Status: Acute Code(s): T39.1X1A - Poisoning by 4-Aminophenol derivatives, accidental (unintentional), initial encounter (2) Polysubstance abuse: Status: Acute Code(s): F19.10 - Other psychoactive substance abuse, uncomplicated (3) COPD (chronic obstructive pulmonary disease): Status: Acute Code(s): J44.9 - Chronic obstructive pulmonary disease, unspecified (4) QUOC (obstructive sleep apnea): Status: Acute Code(s): G47.33 - Obstructive sleep apnea (adult) (pediatric) (5) Morbidly obese: Status: Acute Code(s): E66.01 - Morbid (severe) obesity due to excess calories (6) Schizo-affective schizophrenia: Status: Acute Code(s): F25.9 - Schizoaffective disorder, unspecified (7) Hypothyroidism: Status: Acute Code(s): E03.9 - Hypothyroidism, unspecified (8) Right upper quadrant abdominal pain: Status: Acute Code(s): R10.11 - Right upper quadrant pain (9) Vomiting: Status: Acute Code(s): R11.10 - Vomiting, unspecified Additional A&P Information Tylenol overdose: Patient gives history of taking more than 30 tablets of Tylenol for last 30 days every day though her Tylenol levels on admission 49 which are elevated though not as high as 1 would expected. Patient does have right upper quadrant tenderness nausea and vomiting which is very concerning. Case discussed with poison control. Patient with a loading dose of N-acetylcysteine followed by 10-hour maintenance dose and it was stopped at 4 AM as her liver functions are normal and acetaminophen level was less than 5. We will check liver functions again at around 10 AM and if still stable can do will every 12 hours. Check Tylenol levels again at 7 PM on most 15 hours after stopping the N- acetylcysteine. Stop IV fluids as patient is able to tolerate oral diet well. Famotidine every 12 hour. Benadryl poisoning: Patient does not have any signs of cholinergic poisoning. She does not have any mydriasis, excessive secretion, dysuria, diarrhea blood pressures and heart rate better now. We will continue to monitor. RUQ pain and nausea: Multifactorial. CT liver studies along with liver ultrasound appreciated. Lipase level normal. Advance from full liquid to bland diet. Zofran 4 mg as needed For hypertension: Blood pressures acceptable. Continue with amlodipine 10 mg daily for now. History of COPD/QUOC: DuoNeb's every 6 hours. Oxygen supplementation keeping saturation 90%. Shizoeffective disorder: We will continue patient on a chronic psych medications. Have confirmed with the poison control that this medication would not be interacting with the current overdose. But will hold off on cyproheptadine given potential liver dysfunction. Decrease trazadone to 150 mg daily. Discussed in detail regarding patient Suboxone with the patient. Patient states she supposed to be on 8/2 every 8 hours as per her pain doctor in [place] though taking the medication feels her makes her feel horrible. For now we will continue her on 4/ every 12 hours and patient is agreeable to the same. Case discussed with Dr. Padilla from psychiatry. He does not think patient would need for required 96 hours hold. He does agree with stopping cyproheptadine and states all the other medication should be continued as it is. Lovenox Full liquid Famotidine FC Can transfer to the floors. Attestations Medical Necessity Statement*: Needs continued hospitalization for monitoring for tylenol poisoning. 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
[2019-06-13] MEDS: sertraline 100 mg Tablet PO (09:07)
[2019-06-13] MEDS: gabapentin 400 mg Capsule PO (09:07)
[2019-06-13] MEDS: amlodipine 10 mg Tablet PO (09:07)
[2019-06-13] MEDS: topiramate 100 mg Tablet PO ×2 (09:08→17:21)
[2019-06-13] MEDS: levothyroxine 25 mcg Tablet PO (09:08)
[2019-06-13] MEDS: buprenorphine-naloxone 4-1 mg Film 1 EACH SUBLINGUAL ×2 (09:08→17:20)
[2019-06-13] MEDS: calcitriol 0.25 mcg Capsule 0.5 MCG PO ×2 (09:08→17:20)
--- NOTE | 2019-06-13 10:16 | PM.PSYCN ---
Providers/Reason for Consult Consulting Physican/Specialty*: psychiatry Reason for Consult*: Request assessment of whether patient is a danger ot self or others. Attending Physician: Daniel Mccord MD Primary Care Provider: Elizabeth Lee MD Psych Consult HPI History of Present Illness Chief Compliant: I'm just try to get control of this pain. Darlin Gillespie is a 44 year old female Who was admitted to the intensive care unit due to medical complications of her excessive use of Tylenol to try and control her pain patient states that she has chronic constant pain in her right knee. This has continued to worsen over the past several years. She is seeing pain clinic in [place] and is being treated the Suboxone. However, the past 2 weeks, she has increased her use of Tylenol to extent where it has caused liver damage. The patient specifically states that she was not intending to harm herself she is actively in treatment at the [facility] and has a therapist that she sees there on a regular basis. They're currently working on the long-term effects of posttraumatic stress disorder use that she took as a child. She describes significant benefits from the therapy and has a good therapeutic relationship. She also is being seen by a nurse practitioner who is managing her medications. With the quality of these therapeutic interventions were questioned, the patient was able to detail her personal mental health history. She stated that before these treatments, she was being admitted to the neuropsychiatric unit on a monthly basis. She said she was admitted so often that they were threatening to put her under guardianship and have her placed in a long-term psychiatric facility. However, she has not been hospitalized on the neuropsychiatric unit for the past 3 years. She has not made any suicide attempts and she says she has not had suicidal thoughts at all at that time. She reports the absence of auditory or visual hallucinations. She has good hedonic capacity. A major concern for her is the lack of participation and goal-directed self-esteem supporting activities. She spends most of her time sitting on the couch watching TV petting her dog. While she receives a great deal of support from her dog, her self-esteem seems to come from outside sources. Appetite and sleep are good. She is hopeful for the future. She expresses regret over the events that led her to this hospitalization. Meds Current Medications: Current Medications Generic Name Dose Route Start Last Admin Trade Name Freq PRN Reason Stop Dose Admin Albuterol/Ipratrop ium 3 ml 06/12/19 21:00 06/13/19 08:00 Duoneb INHALATION 3 ml Q6H.RESPIRATORY S CH Administration Amlodipine Besylat e 10 mg 06/12/19 17:50 06/13/19 09:07 Norvasc PO 10 mg DAILY DREA Administration Buprenorphine/Nalo xone 1 each 06/12/19 18:00 06/13/19 09:08 Suboxone 4-1 Mg SUBLINGUAL 1 each BID DREA Administration Buspirone HCl 15 mg 06/12/19 21:00 06/13/19 09:08 Buspar PO 15 mg TID DREA Administration Calcitriol 0.5 mcg 06/12/19 18:00 06/13/19 09:08 Rocaltrol PO 0.5 mcg BID DREA Administration Cyproheptadine HCl 8 mg 06/12/19 21:00 06/12/19 22:37 Periactin PO 8 mg BEDTIME DREA Administration Enoxaparin Sodium 40 mg 06/12/19 18:00 06/12/19 19:10 Lovenox SUBCUT 40 mg Q24H DREA Administration Famotidine 20 mg 06/12/19 16:55 06/13/19 04:58 Pepcid Inj IVP 20 mg Q12H DREA Administration Gabapentin 400 mg 06/13/19 09:00 06/13/19 09:07 Neurontin PO 400 mg DAILY DREA Administration Hydralazine HCl 10 mg 06/12/19 17:45 06/13/19 02:05 Apresoline IVP 10 mg Q4H PRN Administration SBP > 160 mmhg Levothyroxine Sodi um 25 mcg 06/13/19 09:00 06/13/19 09:08 Synthroid PO 25 mcg DAILY DREA Administration Morphine Sulfate 2 mg 06/12/19 16:55 06/12/19 22:39 Morphine IVP 2 mg Q4H PRN Administration SEVERE PAIN Ondansetron HCl 4 mg 06/12/19 16:55 06/13/19 06:21 Zofran IVP 4 mg Q6H PRN Administration vomiting, or N/V if npo Sertraline HCl 100 mg 06/13/19 09:00 06/13/19 09:07 Zoloft PO 100 mg DAILY DREA Administration Topiramate 100 mg 06/12/19 18:00 06/13/19 09:08 Topamax PO 100 mg BID DREA Administration Trazodone HCl 150 mg 06/12/19 21:00 06/12/19 22:38 Desyrel PO 150 mg BEDTIME DREA Administration PFSH NPU PFSH: Medical History (Updated 06/12/19 @ 15:57 by Daniel Mccord MD) COPD (chronic obstructive pulmonary disease) Hypothyroidism Morbidly obese QUOC (obstructive sleep apnea) Polysubstance abuse Schizo-affective schizophrenia Surgical History (Updated 06/12/19 @ 15:46 by Daniel Mccord MD) History of appendectomy History of cholecystectomy Family History (Updated 06/12/19 @ 15:47 by Daniel Mccord MD) Other Hyperparathyroidism Psychiatric illness Social History (Updated 06/12/19 @ 15:47 by Daniel Mccord MD) Smoking and tobacco status: former smoker Alcohol intake: never Substance/Drug Use: former Household members: significant other Housing: House Mental Status Exam MSE Comments: Discharge Mental Status Exam: The patient is alert engaged female appearing approximately her stated age. Her hygiene is excellent with attention to complimentary makeup and hair color.She is believed to be a reliable informant as the information provided is consistent with that in her chart and internally consistent. Appearance: no gross neurological deficits., gait is unremarkable; AIMS=0 Speech: Speech is of normal rate and rhythm and easily understood. Thought processes: Thought processes are abstract. Judgment is adequate for safety. Associations: intact Psychotic processes: There is no indication of guarding or paranoia. There is no attention to the internal stimuli. Auditory and visual hallucinations are denied. Judgment: Insight is fair. Problem solving skills are adequate for safety. Orientation: The patient is oriented to person, place time and situation. Memory: no deficits noted in immediate, intermediate, or remote spheres. Attention: The patient is alert and interpersonally engaged. Language: Verbalizations are coherent. Fund of knowledge: Fund of knowledge is adequate. Affect/Mood: Affect is consistent with a euthymic mood. denied suicidal ideation Affective range is appropriate. Psychosis: perception unimpaired except through cognitive distortion; reality testing intact. Vitals/I&O/Wt Last Vital Signs Temp 98.2 F 06/12/19 17:00 Pulse 90 06/13/19 08:00 Resp 16 06/13/19 08:00 BP 146/87 06/12/19 22:00 Pulse Ox 99 06/13/19 07:54 06/12/19 06/13/19 06/13/19 22:59 06:59 14:59 Intake Total 1150 / 1150 1498.48 / 2648.48 200 / 200 Balance 1150 / 1150 1498.48 / 2648.48 200 / 200 Weight last 48 hrs Weight 136.078 kg Weight 136.985 kg A&P Additional A&P Information Global assessment as per the physician of record: (1) Tylenol overdose: Status: Acute Code(s): T39.1X1A - Poisoning by 4-Aminophenol derivatives, accidental (unintentional), initial encounter (2) Polysubstance abuse: Status: Acute Code(s): F19.10 - Other psychoactive substance abuse, uncomplicated (3) COPD (chronic obstructive pulmonary disease): Status: Acute Code(s): J44.9 - Chronic obstructive pulmonary disease, unspecified (4) QUOC (obstructive sleep apnea): Status: Acute Code(s): G47.33 - Obstructive sleep apnea (adult) (pediatric) (5) Morbidly obese: Status: Acute Code(s): E66.01 - Morbid (severe) obesity due to excess calories (6) Schizo-affective schizophrenia: Status: Acute Code(s): F25.9 - Schizoaffective disorder, unspecified (7) Hypothyroidism: Status: Acute Code(s): E03.9 - Hypothyroidism, unspecified (8) Right upper quadrant abdominal pain: Status: Acute Code(s): R10.11 - Right upper quadrant pain (9) Vomiting: Status: Acute Code(s): R11.10 - Vomiting, unspecified Additional A&P Information Tylenol overdose: Patient gives history of taking more than 30 tablets of Tylenol for last 30 days every day though her Tylenol levels on admission 49 which are elevated though not as high as 1 would expected. Patient does have right upper quadrant tenderness nausea and vomiting which is very concerning. Case discussed with poison control. Patient with a loading dose of N-acetylcysteine followed by 10-hour maintenance dose and it was stopped at 4 AM as her liver functions are normal and acetaminophen level was less than 5. We will check liver functions again at around 10 AM and if still stable can do will every 12 hours. Check Tylenol levels again at 7 PM on most 15 hours after stopping the N-acetylcysteine. Stop IV fluids as patient is able to tolerate oral diet well. Famotidine every 12 hour. Benadryl poisoning: Patient does not have any signs of cholinergic poisoning. She does not have any mydriasis, excessive secretion, dysuria, diarrhea blood pressures and heart rate better now. We will continue to monitor. RUQ pain and nausea: Multifactorial. CT liver studies along with liver ultrasound appreciated. Lipase level normal. Advance from full liquid to bland diet. Zofran 4 mg as needed For hypertension: Blood pressures acceptable. Continue with amlodipine 10 mg daily for now. History of COPD/QUOC: DuoNeb's every 6 hours. Oxygen supplementation keeping saturation 90%. Recommendations: In discussing with Dr. Mccord, it was agreed that her cyproheptadine is likely not a significant component of her mental health treatment protocol. Discontinuation of this medication seems reasonable. We also discussed the potential benefits of reducing her Suboxone in the meantime.However no recommendations for replacement or alternative mental health treatments are indicated. Thank you for allowing me to participate in this interesting clinical case. Please feel free to contact if further assistance is needed. Attestations NPU Medical Necessity Statement*: Length of stay To be determined by physician of record. Coding Level of Care Code Acute Social Service Manager for Jalen Manriquez
[2019-06-13] MEDS: oxyCODONE 5 mg IR Tab/Cap PO ×2 (11:39→19:34)
[2019-06-13 12:33] LABS: Alanine Aminotransferase 12 U/L (0-33); Albumin Level 3.2 g/dL (3.5-5.2); Alkaline Phosphatase 62 IU/L (35-105); Anion Gap 17.3 (5-19); Aspartate Amino Transferase 14 U/L (0-32); Blood Urea Nitrogen 4 mg/dL (6-20); Calcium 7.7 mg/dL (8.5-10.5); Carbon Dioxide 22 mmol/L (22-29); Chloride 102 mmol/L (98-107); Globulin 3.1 g/dL (1.3-4.6); Glomerular Filtration Rate 134.7 mL/min (90-130); Glucose 139 mg/dL (65-115); Potassium 3.3 mmol/L (3.5-5.1); Sodium 138 mmol/L (136-145); Total Bilirubin 0.4 mg/dL (0.15-1.2); Total Protein 6.3 g/dL (6.6-8.7)
[2019-06-13] MEDS: enoxaparin 40 mg/0.4 mL Syringe SUBCUT (17:21)
[2019-06-13 19:33] LABS: Alanine Aminotransferase 7 U/L (0-33); Albumin Level 3.6 g/dL (3.5-5.2); Alkaline Phosphatase 70 IU/L (35-105); Aspartate Amino Transferase 14 U/L (0-32); Globulin 2.9 g/dL (1.3-4.6); Total Bilirubin 0.2 mg/dL (0.15-1.2); Total Protein 6.5 g/dL (6.6-8.7)
[2019-06-13 19:36] LABS: Acetaminophen < 5.0 ug/mL (10-30)
[2019-06-13] MEDS: trazodone 150 mg Tablet PO (19:36)
[2019-06-14] VITALS (12 sets, daily range): BP systolic 100–115; BP diastolic 68–78; PULSE 84–102; RESP 16–20; TEMP 36.6–37; O2SAT 93–97
[2019-06-14] MEDS: ipratropium-albuterol 3 mL Neb INHALATION ×2 (02:51→08:41)
[2019-06-14] MEDS: oxyCODONE 5 mg IR Tab/Cap PO (03:19)
[2019-06-14] MEDS: famotidine 20 mg/2 mL INJ IVP (04:35)
[2019-06-14 06:00] LABS: Basophils # 0.1 10^3/uL (0.0-0.1); Basophils % 0.7 %; Eosinophils # 0.4 10^3/uL (0.0-0.8); Eosinophils % 5.4 %; Hematocrit 32.3 % (37.0-47.0); Hemoglobin 9.9 g/dL (11.5-15.3); Lymphocytes # 3.5 10^3/uL (0.8-4.8); Lymphocytes % 46.1 %; Mean Corpuscular HGB Conc 30.7 g/dL (30.0-36.0); Mean Corpuscular Hemoglobin 29.6 pg (28.0-34.0); Mean Corpuscular Volume 96.7 fL (81-99); Mean Platelet Volume 10.8 fL (7.4-10.4); Monocytes # 0.8 10^3/uL (0.2-0.9); Monocytes % 9.8 %; Neutrophils # 2.9 10^3/uL (1.8-7.7); Neutrophils % 37.9 %; Nucleated Red Blood Cells % 0 %; Platelet Count 273 10^3/cmm (130-400); Red Blood Count 3.34 10^6/uL (4.1-5.3); Red Cell Distribution Width 17.6 % (12.1-15.1); White Blood Count 7.6 10^3/uL (4.0-10.0)
[2019-06-14 06:17] LABS: Alanine Aminotransferase 12 U/L (0-33); Albumin Level 3.1 g/dL (3.5-5.2); Alkaline Phosphatase 64 IU/L (35-105); Anion Gap 14.9 (5-19); Aspartate Amino Transferase 15 U/L (0-32); Blood Urea Nitrogen 4 mg/dL (6-20); Calcium 7.7 mg/dL (8.5-10.5); Carbon Dioxide 22 mmol/L (22-29); Chloride 106 mmol/L (98-107); Globulin 2.8 g/dL (1.3-4.6); Glomerular Filtration Rate 109.1 mL/min (90-130); Glucose 84 mg/dL (65-115); Potassium 3.9 mmol/L (3.5-5.1); Sodium 139 mmol/L (136-145); Total Bilirubin 0.3 mg/dL (0.15-1.2); Total Protein 5.9 g/dL (6.6-8.7)
[2019-06-14] MEDS: morphine 4 mg/mL SDV 1 mL 2 MG IVP (07:57)
[2019-06-14] MEDS: amlodipine 10 mg Tablet PO (08:02)
[2019-06-14] MEDS: calcitriol 0.25 mcg Capsule 0.5 MCG PO (08:02)
[2019-06-14] MEDS: topiramate 100 mg Tablet PO (08:02)
[2019-06-14] MEDS: levothyroxine 25 mcg Tablet PO (08:02)
[2019-06-14] MEDS: gabapentin 400 mg Capsule PO (08:02)
[2019-06-14] MEDS: sertraline 100 mg Tablet PO (08:02)
[2019-06-14] MEDS: ondansetron 2 mg/ML SDV 2 mL 4 MG IVP (08:15)
--- NOTE | 2019-06-14 11:53 | P.DS_ITS ---
Discharge Providers Date of Admission: 06/12/19 15:20 Date of Discharge: June 14, 2019 Attending Provider at Admission: Daniel Mccord MD Attending Provider at Discharge: Daniel Mccord MD Primary Care Provider: Elizabeth Lee MD Diagnoses at Discharge Discharge Diagnosis (1) Tylenol overdose: Status: Acute (2) Polysubstance abuse: Status: Acute (3) COPD (chronic obstructive pulmonary disease): Status: Acute (4) QUOC (obstructive sleep apnea): Status: Acute (5) Morbidly obese: Status: Acute (6) Schizo-affective schizophrenia: Status: Acute (7) Hypothyroidism: Status: Acute (8) Right upper quadrant abdominal pain: Status: Acute (9) Vomiting: Status: Acute Reason for Visit Reason for Visit: Reason For Visit: abnormal labs,sent by [facility] Hospital Course Discharge Summary: Darlin Gillespie is a 44 year old female with past medical history of polysubstance abuse, she is less effective disorder, history of suicidal attempts, history of Seroquel overdose,h/o tylenol overdose causing liver damage in past as per records, morbid obesity, COPD, QUOC with surgical history of gastric bypass, cholecystectomy, appendectomy who presents to the ER on 521 because of right upper quadrant abdominal pain getting worse for last 4 to 5 days associated with vomiting for the last 10 to 12 days. She stated vomiting is usually nonprojectile, not bloodstained, not foul-smelling usually consists of whatever she eats. She states she is not able to eat at present for last 2 to 3 days. Of note she also gives history of taking 8 to 10 tablets 3 times a day of Tylenol PM for last 30 days because of knee pain. She states she was taking that much dose just to make sure she can sleep without being in pain. She denies of having any active suicidal ideations or homicidal ideations. She denies of having any diarrhea, melena, hematochezia, dysuria, headache, dizziness, palpitations, blurry vision, dryness or increased salivation. In ER she was found to have an elevated Tylenol level of 49 with mildly elevated AST/ALT. Given her symptoms of right upper quadrant pain and Tylenol levels she was loaded with N-acetylcysteine and case was discussed with poison control. She was put on a maintenance dose of N-acetylcysteine and Tylenol levels and liver functions were checked again in 10 hours. As her Tylenol levels were less than 5 and liver functions had normalized and acetylcysteine was stopped. Her liver functions and Tylenol levels were monitored in 12 hours again and continue to remain within normal limits. Patient was transferred from ICU to the floors and was monitored for next 24 hours for any symptoms. Patient's hospital stay was unremarkable. For her right upper quadrant pain CT abdomen and ultrasound liver was done which was unremarkable other than fatty liver. Patient was started on a bland diet which she tolerated well and has been advised to take bland diet for next 7 to 10 days and advance to a regular diet which should be low-salt, low-fat diet. Given her history of polysubstance abuse, suicidal ideation in the past psychiatry was consulted for a possible 96-hour hold. She was cleared from psychiatry for any self-harm symptoms. Her medication list was reconciled and cyproheptadine was discontinued given her liver injury from Tylenol toxicity. It was discussed with the patient regarding potential benefits of reducing her Suboxone dose and she agreed for the same. During hospitalization patient was getting 4 mg / 1 mg every 8 hours and she did well with the same. Patient had been advised to follow-up with her pain doctor in [place] to discuss the same. Patient is been discharged in hemodynamic stable condition home with advice of stopping cyproheptadine, avoiding any further Tylenol's and to consume bland diet for next 5 to 10 days. Physical Exam Narrative: EXAM NARRATIVE: General: No acute distress, AO x3 HEENT: PERRLA, pupils bilaterally equal and reactive Chest: Normal vesicular breath sounds, no added sounds, equal good air entry bilaterally CVS: S1-S2 regular, no murmurs, no tachycardia, no gallops, no rubs Abdomen: Soft, nontender, no organomegaly, bowel sounds present. Patient does have 2 small well crusted, not foul-smelling no discharge superficial ulcers in the pannus. Neuro: No focal deficits, no facial deformity, AO x3, power 5/5 in all limbs Discharge Data Data Completed and Pending: Completed Studies During Hospitalization Category Date Time Status CT abdomen pelvis w con* [id number] Urge nt Cat Scan 06/12/19 15:56 [place] liver [id number] Ur gent Ultrasound 06/12/19 15:56 Completed Pending at discharge Category Date Time Status Complete Blood Co unt w/Auto AM LABS Lab 06/15/19 04:00 Ordered Comprehensive Met abolic Panel Q8H Lab 06/14/19 12:00 Ordered Labs from last 24 hours 06/14/19 06/14/19 06/13/19 05:06 05:06 19:16 WBC 7.6 RBC 3.34 L Hgb 9.9 L Hct 32.3 L MCV 96.7 MCH 29.6 MCHC 30.7 RDW 17.6 H Plt Count 273 MPV 10.8 H Neut % (Auto) 37.9 Lymph % (Auto) 46.1 Sac % (Auto) 9.8 Eos % (Auto) 5.4 Baso % (Auto) 0.7 Neut # (Auto) 2.9 Lymph # (Auto) 3.5 Sac # (Auto) 0.8 Eos # (Auto) 0.4 Baso # (Auto) 0.1 Nucleated RBC % (a uto) 0 Nucleated RBCs # 0.0 Sodium 139 Potassium 3.9 Chloride 106 Carbon Dioxide 22 Anion Gap 14.9 BUN 4 L Creatinine 0.6 GFR Calculation 109.1 Glucose 84 Calcium 7.7 L Total Bilirubin 0.3 0.2 Direct Bilirubin 0.20 AST 15 14 ALT 12 7 Alkaline Phosphata se 64 70 Total Protein 5.9 L 6.5 L Albumin 3.1 L 3.6 Globulin 2.8 2.9 Acetaminophen < 5.0 L 06/13/19 11:49 WBC RBC Hgb Hct MCV MCH MCHC RDW Plt Count MPV Neut % (Auto) Lymph % (Auto) Sac % (Auto) Eos % (Auto) Baso % (Auto) Neut # (Auto) Lymph # (Auto) Sac # (Auto) Eos # (Auto) Baso # (Auto) Nucleated RBC % (a uto) Nucleated RBCs # Sodium 138 Potassium 3.3 L Chloride 102 Carbon Dioxide 22 Anion Gap 17.3 BUN 4 L Creatinine 0.5 GFR Calculation 134.7 H Glucose 139 H Calcium 7.7 L Total Bilirubin 0.4 Direct Bilirubin AST 14 ALT 12 Alkaline Phosphata se 62 Total Protein 6.3 L Albumin 3.2 L Globulin 3.1 Acetaminophen Vitals: Last Vital Signs Temp 98.0 F 06/14/19 11:04 Pulse 100 06/14/19 11:04 Resp 20 H 06/14/19 11:04 BP 100/68 06/14/19 11:04 Pulse Ox 93 06/14/19 11:04 Discharge Plan Discharge Patient Disposition: Home, Self-Care Condition: Stable Prescriptions: Continued sertraline 100 mg tablet 100 mg PO DAILY RF: 0 trazodone 150 mg tablet 150 - 300 mg PO BEDTIME RF: 0 risperidone 1 mg tablet 3 mg PO BEDTIME RF: 0 gabapentin 800 mg tablet 800 mg PO DAILY RF: 0 albuterol sulfate 90 mcg/actuation HFA aerosol inhaler 2 puff INHALATION Q4H PRN (Reason: Shortness Of Breath) RF: 0 calcitriol 0.25 mcg capsule 0.5 mcg PO BID RF: 0 buspirone 15 mg tablet 15 mg PO TID RF: 0 buprenorphine-naloxone 8-2 mg film 1 film sublingual Q8H RF: 0 Aimovig Autoinjector 70 mg/mL auto-injector 70 mg SUBCUT Q30D RF: 0 rizatriptan 10 mg Tablet See Rx Instructions .ROUTE .COMPLEX RF: 0 levothyroxine 25 mcg Tablet 25 mcg PO DAILY RF: 0 meloxicam 7.5 mg Tablet 7.5 mg PO BID RF: 0 Calcium 500 500 mg calcium (1,250 mg) Tablet 500 mg PO DAILY RF: 0 pantoprazole 40 mg Tablet,Delayed Release (Dr/Ec) 40 mg PO DAILY RF: 0 Topamax 100 mg Tablet 100 mg PO BID RF: 0 Discontinued cyproheptadine 4 mg tablet 8 mg PO BEDTIME RF: 0 Discharge Orders: Discharge Order (Routine); Ordered 06/14/19 Ordered By: Daniel Mccord Referrals: Elizabeth Lee MD [Primary Care Provider] - 2 weeks [facility], [Staff Physician] - 2 weeks Discharge Diet: As Directed Discharge Activity: Resume usual activity Activity Restrictions/Additional Instructions: [place] diet consisting of bananas, rice, applesauce, toast for next 7 to 10 days and advance eventually. Please avoid Tylenol at least for next 1 to 2 months. If taking ibuprofen as discussed do not take more than 3 tablets a day spread every 8 hours with meals. Please speak with your pain doctor in [place] if possible to lower Suboxone 4/1 every 8 hours. Discharge Attestations Time Spent in Discharge Care*: greater than 30 min Specific Discharge Activities: Specific discharge activities: educating patient, discussing with case finishing machine adjuster/social workers/dc planners and evaluating patient/reviewing data Status at Discharge: Cognitive status at discharge: cognitively intact , Behavioral status at discharge: cooperative , Functional status at discharge: independent ambulation Overall status at discharge: patient is back to baseline Quality Metrics Clinical Quality Measures During this hospital stay, did patient experience: None Coding Level of Care Code Acute Rn Lactation for Tamig Fwd Diagnoses Tylenol overdose T39.1X1A Polysubstance abuse F19.10 COPD (chronic obstructive pulmonary disease) J44.9 QUOC (obstructive sleep apnea) G47.33 Morbidly obese E66.01 Schizo-affective schizophrenia F25.9 Hypothyroidism E03.9 Right upper quadrant abdominal pain R10.11 Vomiting R11.10
[2019-06-14 12:22] LABS: Alanine Aminotransferase 13 U/L (0-33); Albumin Level 3.5 g/dL (3.5-5.2); Alkaline Phosphatase 70 IU/L (35-105); Anion Gap 14.9 (5-19); Aspartate Amino Transferase 17 U/L (0-32); Blood Urea Nitrogen 6 mg/dL (6-20); Calcium 7.7 mg/dL (8.5-10.5); Carbon Dioxide 25 mmol/L (22-29); Chloride 102 mmol/L (98-107); Globulin 2.6 g/dL (1.3-4.6); Glomerular Filtration Rate 91.3 mL/min (90-130); Glucose 101 mg/dL (65-115); Potassium 3.9 mmol/L (3.5-5.1); Sodium 138 mmol/L (136-145); Total Bilirubin 0.3 mg/dL (0.15-1.2); Total Protein 6.1 g/dL (6.6-8.7)
== END 2019-06-14 13:10 | disposition home or self-care (01) | DRG 918 ==
LOC: ER 14:02 → ICU 15:56 → MEDSURG 06-13 15:06
PROVIDERS: Admitting Provider Student in an Organized Health Care Education/Training Program; Emergency Provider Family Medicine; Family Provider Internal Medicine; PCP Internal Medicine; Visit Provider Student in an Organized Health Care Education/Training Program
DX: T39.1X1A Poisoning by 4-Aminophenol derivatives, accidental (unintentional), initial encounter (principal); Z68.43 Body mass index [BMI] 50.0-59.9, adult; Y92.009 Unspecified place in unspecified non-institutional (private) residence as the place of occurrence of the external cause; Z91.5 Personal history of self-harm; E66.01 Morbid (severe) obesity due to excess calories; J44.9 Chronic obstructive pulmonary disease, unspecified; G47.33 Obstructive sleep apnea (adult) (pediatric); Z98.84 Bariatric surgery status; Z90.49 Acquired absence of other specified parts of digestive tract; E03.9 Hypothyroidism, unspecified; F19.10 Other psychoactive substance abuse, uncomplicated; F20.9 Schizophrenia, unspecified; Z87.891 Personal history of nicotine dependence; R10.11 Right upper quadrant pain; G89.29 Other chronic pain; M25.561 Pain in right knee; F43.10 Post-traumatic stress disorder, unspecified; R11.2 Nausea with vomiting, unspecified; Z79.51 Long term (current) use of inhaled steroids
CPT/HCPCS: 12345; 36415; 74177; 76705; 80053; 80076; 80305; 80307; 81003; 83540; 83550; 83690; 84145; 84443; 85025; 85610; 93005; 94640; 94664; 96372; 96375; 97161; 97166; 97530; 99284; A9270; J0132; J0360; J0573; J1650; J2270; J2405; J3490; J7030; Q9967

== ENCOUNTER → 2019-06-24 07:34 | Outpatient (BNVA) | payer MEDICARE, MEDICAID, SELFPAY | PROVIDERS: Family Provider Internal Medicine; PCP Internal Medicine; Visit Provider Nurse Practitioner Psychiatric/Mental Health | DX: F33.3 Major depressive disorder, recurrent, severe with psychotic symptoms (principal); F43.12 Post-traumatic stress disorder, chronic; F60.3 Borderline personality disorder; F12.20 Cannabis dependence, uncomplicated | CPT/HCPCS: 99214 ==

== ENCOUNTER 2019-07-17 14:10 | Emergency (ER) | payer MEDICARE, MEDICAID, SELFPAY ==
[2019-07-17 14:16] VITALS: BP 177/99; PULSE 83; RESP 16; TEMP 37.1; O2SAT 97; BMI 52.2
--- NOTE | 2019-07-17 14:33 | W.ED.BACK ---
Documented by User: [email or web address] Webber 07/18/19 10:59 HPI - Back Pain/Injury General: Chief Complaint: Back Pain/Injury Stated Complaint: LOWER BACK PAIN Time Seen by Provider: 07/17/19 14:23 History of Present Illness: HPI Narrative: Patient is a 44-year-old female who comes into the ED with lower back pain. She states the pain started last Saturday, July 10 and has progressively gotten worse. Denies any injury to cause acute pain. Patient is tried using heat and ice but it has not made the pain any better. She denies any pain radiating down her lower extremities, numbness or tingling to extremities or any pelvic anesthesia. Denies any bladder or bowel incontinence. Associated symptoms: Deny abdominal pain, chills, dysuria, fatigue, fever(s), hematuria, nausea or vomiting Review of Systems Const: Denies: fever, chills or fatigue Eyes: Denies: change in vision or eye discomfort ENMT: Denies: throat pain, painful swallowing, nasal discharge or nasal congestion Card: Denies: chest pain, palpitations, edema, swelling of feet/ankles, shortness of breath on exertion or shortness of breath when lying down Resp: Denies: shortness of breath, productive cough or non-productive cough GI: Denies: abdominal pain, nausea, vomiting, diarrhea, constipation or blood in stool : Denies: flank pain, painful urination or blood in urine Musc: Reports: back pain; Denies: neck pain or extremity swelling Skin/Breast: Denies: rash or new lesion Neuro: Denies: headache, numbness in extremities or weakness in extremities [facility] ED PFSH: Medical History Borderline personality disorder Cannabis use disorder, moderate, dependence Chronic post-traumatic stress disorder COPD (chronic obstructive pulmonary disease) Hypothyroidism Major depressive disorder, recurrent, severe with psychotic symptoms Morbidly obese QUOC (obstructive sleep apnea) Polysubstance abuse Schizo-affective schizophrenia Surgical History History of appendectomy History of cholecystectomy Family History Other Borderline personality disorder Hyperparathyroidism Psychiatric illness Social History Smoking and tobacco status: former smoker Alcohol intake: never Household members: significant other Housing: House Physical Exam Narrative: EXAM NARRATIVE: Patient is a 44-year-old female who is sitting comfortably on exam bed when I entered the room. She appears in no acute distress or pain. Const: COMMON NORMALS: oriented x3 HENMT: COMMON NORMALS: normocephalic HEAD & SCALP: normocephalic MOUTH: oral and palatal mucosa normal THROAT: posterior oropharynx normal and uvula midline Neck/C-Spine: COMMON NORMALS: supple GENERAL: Yes normal visual inspection Resp: COMMON NORMALS: normal respiratory effort, no retractions, no use of accessory muscles and clear to auscultation bilaterally AUSCULTATION: clear to auscultation bilaterally Cardio: COMMON NORMALS: regular rate, regular rhythm, S1 normal heart sound, S2 normal heart sound, no gallops, no clicks, no murmurs and peripheral pulses 2+ throughout RATE: regular rate RHYTHM: regular rhythm HEART SOUNDS: S1 normal and S2 normal PERIPHERAL PULSES: pulses 2+ throughout GI: COMMON NORMALS: normal to inspection, nondistended, normoactive bowel sounds, soft to palpation, non-tender and no masses INSPECTION: Yes central obesity PALPATION: Yes soft : COMMON NORMALS: Yes no CVA tenderness BLADDER/KIDNEY EXAM: Yes no CVA tenderness Back/Pelvis: COMMON NORMALS: no CVA tenderness LUMBAR SPINE/LOWER BACK: Yes paraspinal muscle tenderness Extremity: COMMON NORMALS: normal to inspection Neuro: COMMON NORMALS: oriented x3 and moves all extremities Skin: GENERAL SKIN EXAM: dry skin Course Vital Signs: Vital signs: Vital Signs Temperature 98.7 F 07/17/19 14:16 Pulse Rate 83 07/17/19 15:46 Respiratory Rate 17 07/17/19 15:46 Blood Pressure 154/84 07/17/19 15:46 Pulse Oximetry 98 07/17/19 15:46 MDM - Back Pain/Injury MDM Narrative: Medical decision making narrative: Patient is a 44-year-old female who comes into the ED with lumbar back pain. Denies any trauma or injury to cause pain. Physical exam is remarkable for paraspinal muscle tenderness of the lumbar spine. Patient was given Norflex and Toradol while here in the ED and symptoms improved. Patient was discharged with a prescription for muscle relaxer and told to take [id number] ibuprofen 600 mg every 8 hours for pain. I also told patient to stretch lower back out daily and to apply heat or ice to sore area of the lower back to help with symptoms and pain. Patient understood and agreed with plan. Discharge Plan Discharge Patient Disposition: Home, Self-Care Clinical Impression: Lumbar back pain Condition: Stable Prescriptions: New tizanidine 4 mg tablet 4 mg PO Q8H PRN (Reason: muscle spasticity) Qty: 20 RF: 0 No Action cyproheptadine 4 mg tablet 8 mg PO .bedtime Qty: 180 RF: 2 sertraline 100 mg tablet 100 mg PO DAILY RF: 0 trazodone 150 mg tablet 150 - 300 mg PO BEDTIME RF: 0 risperidone 1 mg tablet 3 mg PO BEDTIME RF: 0 gabapentin 800 mg tablet 800 mg PO DAILY RF: 0 albuterol sulfate 90 mcg/actuation HFA aerosol inhaler 2 puff INHALATION Q4H PRN (Reason: Shortness Of Breath) RF: 0 calcitriol 0.25 mcg capsule 0.5 mcg PO BID RF: 0 buspirone 15 mg tablet 15 mg PO TID RF: 0 buprenorphine-naloxone 8-2 mg film 1 film sublingual Q8H RF: 0 Aimovig Autoinjector 70 mg/mL auto-injector 70 mg SUBCUT Q30D RF: 0 rizatriptan 10 mg Tablet See Rx Instructions .ROUTE .COMPLEX RF: 0 levothyroxine 25 mcg Tablet 25 mcg PO DAILY RF: 0 meloxicam 7.5 mg Tablet 7.5 mg PO BID RF: 0 Calcium 500 500 mg calcium (1,250 mg) Tablet 500 mg PO DAILY RF: 0 pantoprazole 40 mg Tablet,Delayed Release (Dr/Ec) 40 mg PO DAILY RF: 0 Topamax 100 mg Tablet 100 mg PO BID RF: 0 Discharge Orders: Discharge Order (Routine); Ordered 07/17/19 Ordered By: Titus Arcos Referrals: Elizabeth Lee MD [Primary Care Provider] - Discharge Diet: Regular Discharge Activity: Increase activity as tolerated Patient Instructions: Acute Low Back Pain (ED) Activity Restrictions/Additional Instructions: Follow-up with your PCP in the next 7 days for reevaluation. Take muscle relaxer as prescribed. Remember the muscle relaxer can cause some drowsiness so take at night before bed and use during the day with caution. You can also take [id number]-[id number] ibuprofen 600 mg every 8 hours to help with pain and inflammation. Apply ice and/or heat on lower back to help with symptoms as well. Stretch out your lower back daily. Discharge Date/Time: 07/17/19 15:15 Coding Level of Care Code ED Ordering Machine Operator for Chg Fwd Exam Comprehensive Documented by User: Erin Sprague 07/18/19 21:09 HPI - Back Pain/Injury General: Chief Complaint: Back Pain/Injury Stated Complaint: LOWER BACK PAIN Time Seen by Provider: 07/17/19 14:23 [facility] PFSH: Medical History Borderline personality disorder Cannabis use disorder, moderate, dependence Chronic post-traumatic stress disorder COPD (chronic obstructive pulmonary disease) Hypothyroidism Major depressive disorder, recurrent, severe with psychotic symptoms Morbidly obese QUOC (obstructive sleep apnea) Polysubstance abuse Schizo-affective schizophrenia Surgical History History of appendectomy History of cholecystectomy Family History Other Borderline personality disorder Hyperparathyroidism Psychiatric illness Social History Smoking and tobacco status: former smoker Alcohol intake: never Household members: significant other Housing: House Course Vital Signs: Vital signs: Vital Signs Temperature 98.7 F 07/17/19 14:16 Pulse Rate 83 07/17/19 15:46 Respiratory Rate 17 07/17/19 15:46 Blood Pressure 154/84 07/17/19 15:46 Pulse Oximetry 98 07/17/19 15:46 MDM - Back Pain/Injury MDM Narrative: Medical decision making narrative: This patient was not seen by me, evaluated by me nor discussed with me by the midlevel provider. I was available in the ER if needed throughout their stay but was not involved or contacted about their care. I am signing this chart per hospital policy ? Dr. Sprague. Discharge Plan Discharge Patient Disposition: Home, Self-Care Clinical Impression: Lumbar back pain Condition: Stable Prescriptions: New tizanidine 4 mg tablet 4 mg PO Q8H PRN (Reason: muscle spasticity) Qty: 20 RF: 0 No Action cyproheptadine 4 mg tablet 8 mg PO .bedtime Qty: 180 RF: 2 sertraline 100 mg tablet 100 mg PO DAILY RF: 0 trazodone 150 mg tablet 150 - 300 mg PO BEDTIME RF: 0 risperidone 1 mg tablet 3 mg PO BEDTIME RF: 0 gabapentin 800 mg tablet 800 mg PO DAILY RF: 0 albuterol sulfate 90 mcg/actuation HFA aerosol inhaler 2 puff INHALATION Q4H PRN (Reason: Shortness Of Breath) RF: 0 calcitriol 0.25 mcg capsule 0.5 mcg PO BID RF: 0 buspirone 15 mg tablet 15 mg PO TID RF: 0 buprenorphine-naloxone 8-2 mg film 1 film sublingual Q8H RF: 0 Aimovig Autoinjector 70 mg/mL auto-injector 70 mg SUBCUT Q30D RF: 0 rizatriptan 10 mg Tablet See Rx Instructions .ROUTE .COMPLEX RF: 0 levothyroxine 25 mcg Tablet 25 mcg PO DAILY RF: 0 meloxicam 7.5 mg Tablet 7.5 mg PO BID RF: 0 Calcium 500 500 mg calcium (1,250 mg) Tablet 500 mg PO DAILY RF: 0 pantoprazole 40 mg Tablet,Delayed Release (Dr/Ec) 40 mg PO DAILY RF: 0 Topamax 100 mg Tablet 100 mg PO BID RF: 0 Discharge Orders: Discharge Order (Routine); Ordered 07/17/19 Ordered By: Titus Arcos Referrals: Elizabeth Lee MD [Primary Care Provider] - Discharge Diet: Regular Discharge Activity: Increase activity as tolerated Patient Instructions: Acute Low Back Pain (ED) Activity Restrictions/Additional Instructions: Follow-up with your PCP in the next 7 days for reevaluation. Take muscle relaxer as prescribed. Remember the muscle relaxer can cause some drowsiness so take at night before bed and use during the day with caution. You can also take [id number] ibuprofen 600 mg every 8 hours to help with pain and inflammation. Apply ice and/or heat on lower back to help with symptoms as well. Stretch out your lower back daily. Discharge Date/Time: 07/17/19 15:15 Coding Level of Care Code ED Ordering Machine Operator for Chg Fwd Exam Comprehensive
[2019-07-17 14:38] VITALS: BP 138/77; RESP 17; O2SAT 98
[2019-07-17] MEDS: ketorolac 30 mg/mL INJ IM (14:58)
[2019-07-17] MEDS: orphenadrine 30 mg/mL Inj 2 mL 60 MG IM (15:00)
[2019-07-17 15:46] VITALS: BP 154/84; PULSE 83; RESP 17; O2SAT 98
== END 2019-07-17 15:15 | disposition home or self-care (01) ==
LOC: ER 15:49
PROVIDERS: Emergency Provider Physician Assistant; Family Provider Internal Medicine; PCP Internal Medicine
DX: M54.5 Low back pain (principal); J44.9 Chronic obstructive pulmonary disease, unspecified; E03.9 Hypothyroidism, unspecified; E66.01 Morbid (severe) obesity due to excess calories; Z68.43 Body mass index [BMI] 50.0-59.9, adult; Z87.891 Personal history of nicotine dependence
CPT/HCPCS: 12345; 96372; 99282; 99283; J1885; J2360

== ENCOUNTER → 2019-07-21 15:15 | Outpatient (BNVA) | payer MEDICARE, MEDICAID, SELFPAY | PROVIDERS: Family Provider Internal Medicine; PCP Internal Medicine; Visit Provider Social Worker | DX: F33.3 Major depressive disorder, recurrent, severe with psychotic symptoms (principal); F43.12 Post-traumatic stress disorder, chronic; F60.3 Borderline personality disorder | CPT/HCPCS: 90834 ==

== ENCOUNTER → 2019-07-22 07:16 | Outpatient (BNVA) | payer MEDICARE, MEDICAID, SELFPAY | PROVIDERS: Family Provider Internal Medicine; PCP Internal Medicine; Visit Provider Nurse Practitioner Psychiatric/Mental Health | DX: F33.3 Major depressive disorder, recurrent, severe with psychotic symptoms (principal); F43.12 Post-traumatic stress disorder, chronic; F60.3 Borderline personality disorder; F12.20 Cannabis dependence, uncomplicated | CPT/HCPCS: 99213 ==

== ENCOUNTER 2019-07-31 13:36 | Emergency (ER) | payer MEDICARE, MEDICAID, SELFPAY ==
[2019-07-31 13:56] VITALS: BP 148/90; PULSE 88; RESP 18; TEMP 36.9; O2SAT 97; BMI 51.7
--- NOTE | 2019-07-31 14:13 | ECG_ITS ---
Measurements Intervals [place] Rate: 68 P: 62 [place]: 136 QRS: 51 QRSD: 86 T: 56 QT: 397 QTc: 425 SINUS RHYTHM WITH SINUS ARRHYTHMIA Compared to ECG 06/12/2019 14:08:58 No significant changes Electronically Signed On 07-31-2019 17:06:40 CDT by Urszula Mejía M.D. [id number] f
--- NOTE | 2019-07-31 14:14 | XR_ITS ---
WS: [id number] PROCEDURE: XR chest 2V* 03608 CLINICAL INFORMATION: chest pain COMPARISON: May 14, 2012 FINDINGS: Heart: Normal cardiac silhouette. Lungs: Lungs are clear. No consolidation or pleural fluid. Bones: Normal visualized bony structures. XR/XR chest 2V* 78939 IMPRESSION: Normal chest
--- NOTE | 2019-07-31 14:28 | ED_ITS ---
HPI - Chest Pain General: Chief Complaint: Chest Pain Stated Complaint: cp Time Seen by Provider: 07/31/19 14:23 History of Present Illness: MD complaint: chest pain Pertinent past history: other (HTN) Onset (ago): hour(s) (1) Timing of current episode: constant Prior episodes: No Onset: during rest Pain location: left chest Pain radiation: none Severity: mild Quality: aching Exacerbating factors: nothing Associated symptoms: Reports no associated symptoms; Deny abdominal pain, dyspnea, fever(s), nausea or vomiting Treatment prior to arrival: none Review of Systems General: Reports: 10 or more systems reviewed and unremarkable except in HPI and below Const: Denies: fever, chills or body aches Eyes: Denies: change in vision or blurry vision ENMT: Denies: throat pain, enlarged tonsils, painful swallowing, hoarseness, mouth pain or swelling of lips/tongue Card: Reports: chest pain Resp: Denies: shortness of breath, productive cough or non-productive cough GI: Denies: abdominal pain, nausea or vomiting : Denies: flank pain, difficulty urinating, painful urination, urinary frequency, urinary urgency or urinary hesitancy Musc: Denies: neck pain, back pain or extremity swelling Skin/Breast: Denies: rash, itching or redness Neuro: Denies: headache, numbness in extremities or weakness in extremities Endo: Denies: excessive urination, excessive thirst or tired all the time PFS ED PFSH: Social History Smoking and tobacco status: never smoked Alcohol intake: never Household members: significant other Housing: House Female Reproductive History: Date of last menstrual period: 07/22/19 Physical Exam Const: COMMON NORMALS: no apparent distress, average body habitus, oriented x3, no limitations, healthy appearing, alert and well nourished HENMT: COMMON NORMALS: normocephalic, head/scalp atraumatic and moist oral mucous membranes HEAD & SCALP: normocephalic and atraumatic Eye: COMMON NORMALS: PERRL, EOMs intact bilaterally, conjunctivae normal and no scleral icterus CONJUNCTIVA: Yes conjunctivae normal PUPIL: Yes PERRL Neck/C-Spine: COMMON NORMALS: full ROM, supple, no meningeal signs, no JVD and no carotid bruits Chest: COMMONS NORMALS: inspection of chest normal and palpation of chest normal Resp: COMMON NORMALS: normal respiratory effort, no retractions, no use of accessory muscles, clear to auscultation bilaterally and percussion normal AUSCULTATION: clear to auscultation bilaterally PERCUSSION: percussion normal Cardio: COMMON NORMALS: no JVD, regular rate, regular rhythm, S1 normal heart sound, S2 normal heart sound, no gallops, no clicks, no murmurs, no rub and peripheral pulses 2+ throughout RATE: regular rate RHYTHM: regular rhythm HEART SOUNDS: S1 normal and S2 normal PERIPHERAL PULSES: pulses 2+ throughout GI: COMMON NORMALS: normal to inspection, nondistended, normoactive bowel sounds, soft to palpation, non-tender, no hepatosplenomegaly, no masses and no bruits PALPATION: Yes soft and Yes no hepatosplenomegaly : COMMON NORMALS: Yes no CVA tenderness BLADDER/KIDNEY EXAM: Yes no CVA tenderness Back/Pelvis: COMMON NORMALS: no CVA tenderness Extremity: COMMON NORMALS: normal to inspection, full ROM, normal capillary refill, no calf tenderness and no pedal edema Neuro: COMMON NORMALS: oriented x3 SENSORIUM/ORIENTATION: Yes alert MENINGEAL SIGNS: Yes no meningeal signs Skin: COMMON NORMALS: no rashes or lesions noted, no wounds, skin turgor normal, no jaundice, no petechiae and no mottling GENERAL SKIN EXAM: no rashes or lesions noted and turgor normal Course Reevaluation(s): Reevaluation #1: Discussed her lab and imaging findings with her. Negative for acute findings. Negative high-sensitivity troponin x2. We will discharge her home to follow-up with her primary care provider. She voiced understanding and is in agreement with the plan. Pain is improved. Time: 17:58 Vital Signs: Vital signs: Vital Signs Temperature 97.4 F L 07/31/19 15:25 Pulse Rate 91 07/31/19 18:31 Respiratory Rate 20 H 07/31/19 18:31 Blood Pressure 140/89 07/31/19 18:31 Pulse Oximetry 96 07/31/19 18:31 MDM - Chest Pain MDM Narrative: Medical decision making narrative: 44-year-old female patient who presents with chest pain. Evaluation in the emergency department is unremarkable. She is discharged home with no new orders. She has a low heart score. Medical Records: Attestation: I reviewed the patient's medical records. Lab Data: Labs: Lab Results 07/31/19 07/31/19 07/31/19 Range/Units 15:03 15:03 15:03 WBC 7.2 (4.0-10.0) 10^3/ uL RBC 3.80 L (4.1-5.3) 10^6/u L Hgb 10.3 L (11.5-15.3) g/dL Hct 34.3 L (37.0-47.0) % MCV 90.3 (81-99) fL MCH 27.1 L (28.0-34.0) pg MCHC 30.0 (30.0-36.0) g/dL RDW 15.5 H (12.1-15.1) % Plt Count 341 (130-400) 10^3/c mm MPV 10.3 (7.4-10.4) fL Neut % (Auto) 54.3 % Lymph % (Auto) 31.0 % [place] % (Auto) 7.5 % Eos % (Auto) 6.4 % Baso % (Auto) 0.7 % Neut # (Auto) 3.9 (1.8-7.7) 10^3/u L Lymph # (Auto) 2.2 (0.8-4.8) 10^3/u L [place] # (Auto) 0.5 (0.2-0.9) 10^3/u L Eos # (Auto) 0.5 (0.0-0.8) 10^3/u L Baso # (Auto) 0.1 (0.0-0.1) 10^3/u L Nucleated RBC % (a uto) 0 % Nucleated RBCs # 0.0 /100WBC Sodium 141 (136-145) mmol/L Potassium 3.7 (3.5-5.1) mmol/L Chloride 106 (98-107) mmol/L Carbon Dioxide 23 (22-29) mmol/L Anion Gap 15.7 (5-19) BUN 13 (6-20) mg/dL Creatinine 0.8 (0.5-0.9) mg/dL GFR Calculation 78.3 L (90-130) mL/min Glucose 103 (65-115) mg/dL Calculated Osmolal ity 288 (285-295) mOsm/k g Calcium 7.8 L (8.5-10.5) mg/dL Total Bilirubin 0.3 (0.15-1.2) mg/dL AST 16 (0-32) U/L ALT 10 (0-33) U/L Alkaline Phosphata se 94 (35-105) IU/L Troponin T Baselin e 8 (0-10) ng/mL Troponin T 120 Min igiugig (0-10) ng/mL Delta Troponin T (0-10) ABS# NT-Pro-B Natriuret Pep 73 (0-125) pg/mL Total Protein 6.6 (6.6-8.7) g/dL Albumin 3.7 (3.5-5.2) g/dL Globulin 2.9 (1.3-4.6) g/dL Lipase 26 (13-60) U/L 07/31/19 Range/Units 17:15 WBC (4.0-10.0) 10^3/ uL RBC (4.1-5.3) 10^6/u L Hgb (11.5-15.3) g/dL Hct (37.0-47.0) % MCV (81-99) fL MCH (28.0-34.0) pg MCHC (30.0-36.0) g/dL RDW (12.1-15.1) % Plt Count (130-400) 10^3/c mm MPV (7.4-10.4) fL Neut % (Auto) % Lymph % (Auto) % [place] % (Auto) % Eos % (Auto) % Baso % (Auto) % Neut # (Auto) (1.8-7.7) 10^3/u L Lymph # (Auto) (0.8-4.8) 10^3/u L [place] # (Auto) (0.2-0.9) 10^3/u L Eos # (Auto) (0.0-0.8) 10^3/u L Baso # (Auto) (0.0-0.1) 10^3/u L Nucleated RBC % (a uto) % Nucleated RBCs # /100WBC Sodium (136-145) mmol/L Potassium (3.5-5.1) mmol/L Chloride (98-107) mmol/L Carbon Dioxide (22-29) mmol/L Anion Gap (5-19) BUN (6-20) mg/dL Creatinine (0.5-0.9) mg/dL GFR Calculation (90-130) mL/min Glucose (65-115) mg/dL Calculated Osmolal ity (285-295) mOsm/k g Calcium (8.5-10.5) mg/dL Total Bilirubin (0.15-1.2) mg/dL AST (0-32) U/L ALT (0-33) U/L Alkaline Phosphata se (35-105) IU/L Troponin T Baselin e (0-10) ng/mL Troponin T 120 Min igiugig 7.01 (0-10) ng/mL Delta Troponin T -0.99 L (0-10) ABS# NT-Pro-B Natriuret Pep (0-125) pg/mL Total Protein (6.6-8.7) g/dL Albumin (3.5-5.2) g/dL Globulin (1.3-4.6) g/dL Lipase (13-60) U/L Imaging Data^: CXR: Radiologist's impression: [address] [address] XRay Report Signed Patient: Darlin Gillespie #: [id number] : 1975Acct#:[id number] Age/Sex: 44 / FADM Date: 07/31/19 Loc: [facility]/Bed: Attending Dr: Ordering Provider/Ordering MD: Mamta Byrne MD, [facility] Date of Service: 07/31/19 Procedure(s): XR chest 2V* 84058 Accession Number(s): [id number] Report Number: [id number] WS: [id number] PROCEDURE: XR chest 2V* 45814 CLINICAL INFORMATION: chest pain COMPARISON: May 14, 2012 FINDINGS: Heart: Normal cardiac silhouette. Lungs: Lungs are clear. No consolidation or pleural fluid. Bones: Normal visualized bony structures. XR/XR chest 2V* 84761 IMPRESSION: Normal chest Dictated By:Bairon Connor MD Signed By:Bairon Connor MDSigned Date/Time:07/31/191451 DD/ 50 EKG Data^: EKG 1: Attestation: I personally reviewed and interpreted this EKG as follows: EKG interpretation date: 07/31/19 EKG interpretation time: 14:03 Prior EKG tracings: available for review Interpretation: sinus rhythm HR 82 No acute findings EKG 2: Attestation: I personally reviewed and interpreted this EKG as follows: EKG interpretation date: 07/31/19 EKG interpretation time: 16:05 Prior EKG tracings: available for review Interpretation: unchanged from earlier Discharge Plan Discharge Patient Disposition: Home, Self-Care Clinical Impression: Chest pain Qualifiers: Chest pain type: other chest pain Qualified Code(s): R07.89 - Other chest pain Condition: Stable Prescriptions: Continued cyproheptadine 4 mg tablet 8 mg PO .bedtime Qty: 180 RF: 2 buspirone 15 mg tablet 15 mg PO TID Qty: 270 RF: 1 risperidone 1 mg tablet 3 mg PO DIRECTED Qty: 270 RF: 1 sertraline 100 mg tablet 200 mg PO .morning Qty: 180 RF: 1 trazodone 150 mg tablet 300 mg PO BEDTIME PRN (Reason: sleep) Qty: 180 RF: 1 tizanidine 4 mg tablet 4 mg PO Q8H PRN (Reason: muscle spasticity) Qty: 20 RF: 0 gabapentin 800 mg tablet 800 mg PO DAILY RF: 0 albuterol sulfate 90 mcg/actuation HFA aerosol inhaler 2 puff INHALATION Q4H PRN (Reason: Shortness Of Breath) RF: 0 calcitriol 0.25 mcg capsule 0.5 mcg PO BID RF: 0 buprenorphine-naloxone 8-2 mg film 1 film sublingual Q8H RF: 0 Aimovig Autoinjector 70 mg/mL auto-injector 70 mg SUBCUT Q30D RF: 0 rizatriptan 10 mg Tablet See Rx Instructions .ROUTE .COMPLEX RF: 0 levothyroxine 25 mcg Tablet 25 mcg PO DAILY RF: 0 meloxicam 7.5 mg Tablet 7.5 mg PO BID RF: 0 Calcium 500 500 mg calcium (1,250 mg) Tablet 500 mg PO DAILY RF: 0 pantoprazole 40 mg Tablet,Delayed Release (Dr/Ec) 40 mg PO DAILY RF: 0 Topamax 100 mg Tablet 100 mg PO BID RF: 0 Discharge Orders: Discharge Order (Routine); Ordered 07/31/19 Ordered By: Mamta Byrne Referrals: Elizabeth Lee MD [Primary Care Provider] - 1-3 days Patient Instructions: Chest Pain (ED) Activity Restrictions/Additional Instructions: Return for any new or worsening symptoms. Follow-up with your primary care provider within 2 days. Discharge Date/Time: 07/31/19 18:33 Coding Level of Care Code ED Jewelry Drill Operator for Chg Fwd Exam Comprehensive
[2019-07-31 15:20] LABS: Basophils # 0.1 10^3/uL (0.0-0.1); Basophils % 0.7 %; Eosinophils # 0.5 10^3/uL (0.0-0.8); Eosinophils % 6.4 %; Hematocrit 34.3 % (37.0-47.0); Hemoglobin 10.3 g/dL (11.5-15.3); Lymphocytes # 2.2 10^3/uL (0.8-4.8); Mean Corpuscular Hemoglobin 27.1 pg (28.0-34.0); Mean Corpuscular Volume 90.3 fL (81-99); Mean Platelet Volume 10.3 fL (7.4-10.4); Monocytes # 0.5 10^3/uL (0.2-0.9); Monocytes % 7.5 %; Neutrophils # 3.9 10^3/uL (1.8-7.7); Neutrophils % 54.3 %; Nucleated Red Blood Cells % 0 %; Platelet Count 341 10^3/cmm (130-400); Red Cell Distribution Width 15.5 % (12.1-15.1); White Blood Count 7.2 10^3/uL (4.0-10.0)
[2019-07-31] MEDS: aspirin 81 mg Chew Tablet 324 MG PO (15:24)
[2019-07-31 15:25] VITALS: BP 115/90; PULSE 92; RESP 17; TEMP 36.3; O2SAT 96
[2019-07-31 15:53] LABS: Alanine Aminotransferase 10 U/L (0-33); Albumin Level 3.7 g/dL (3.5-5.2); Alkaline Phosphatase 94 IU/L (35-105); Anion Gap 15.7 (5-19); Aspartate Amino Transferase 16 U/L (0-32); Blood Urea Nitrogen 13 mg/dL (6-20); Calcium 7.8 mg/dL (8.5-10.5); Carbon Dioxide 23 mmol/L (22-29); Chloride 106 mmol/L (98-107); Globulin 2.9 g/dL (1.3-4.6); Glomerular Filtration Rate 78.3 mL/min (90-130); Glucose 103 mg/dL (65-115); Lipase 26 U/L (13-60); NT Pro B Type Natriuretic Pept 73 pg/mL (0-125); Osmolality Calculated 288 mOsm/kg (285-295); Potassium 3.7 mmol/L (3.5-5.1); Sodium 141 mmol/L (136-145); Total Bilirubin 0.3 mg/dL (0.15-1.2); Total Protein 6.6 g/dL (6.6-8.7)
[2019-07-31 15:54] LABS: Troponin(5th) Baseline 8 ng/mL (0-10)
--- NOTE | 2019-07-31 16:13 | ECG_ITS ---
Measurements Intervals [place] Rate: 82 P: 45 [place]: 137 QRS: 11 QRSD: 81 T: 41 QT: 355 QTc: 416 SINUS RHYTHM INTERPRETATION BASED ON A DEFAULT AGE OF 40 YEARS Compared to ECG 06/12/2019 14:08:58 No significant changes Electronically Signed On 07-31-2019 17:08:12 CDT by Urszula Mejía M.D. [id number] f
[2019-07-31 17:52] LABS: Troponin 5 2HR 7.01 ng/mL (0-10)
[2019-07-31 18:02] LABS: Troponin 5 2HR Delta -0.99 ABS# (0-10)
[2019-07-31 18:31] VITALS: BP 140/89; PULSE 91; RESP 20; O2SAT 96
== END 2019-07-31 18:33 | disposition home or self-care (01) ==
PROVIDERS: Emergency Provider Family Medicine; Family Provider Internal Medicine; PCP Internal Medicine
DX: J44.9 Chronic obstructive pulmonary disease, unspecified (principal); R07.89 Other chest pain; E66.01 Morbid (severe) obesity due to excess calories; G47.33 Obstructive sleep apnea (adult) (pediatric); F25.9 Schizoaffective disorder, unspecified; E03.9 Hypothyroidism, unspecified; F33.3 Major depressive disorder, recurrent, severe with psychotic symptoms
CPT/HCPCS: 12345; 36415; 71046; 80053; 83690; 83880; 84484; 85025; 93005; 99281; 99283

== ENCOUNTER → 2019-08-04 09:57 | Outpatient (BNVA) | payer MEDICARE, MEDICAID, SELFPAY | PROVIDERS: Family Provider Internal Medicine; PCP Internal Medicine; Visit Provider Social Worker | DX: F33.3 Major depressive disorder, recurrent, severe with psychotic symptoms (principal); F43.12 Post-traumatic stress disorder, chronic; F60.3 Borderline personality disorder | CPT/HCPCS: 90834 ==

== ENCOUNTER 2019-08-12 08:27 | Outpatient (CLI) | payer MEDICARE, MEDICAID, SELFPAY ==
--- NOTE | 2019-08-12 08:45 | US_ITS ---
WS: [id number] TRANSABDOMINAL PELVIC AND TRANSVAGINAL PELVIC ULTRASOUND HISTORY: BLEEDING COMPARISON: CT pelvis 06/12/2019 Uterus: 5.9 cm x 3.5 cm x 2.8 cm. Mildly atrophic uterus is anteverted. Urinary bladder is markedly d istended on both transabdominal and transvaginal imaging despite voiding. Endometrium: 0.5 cm. Normal size and echogenicity. Neither ovary is identified. There are no adnexal masses or fluid. US/US pelvic with transvaginal IMPRESSION: 1. No adnexal masses. Neither ovary is identified. 2. Negative endometrium.
== END 2019-08-12 08:28 | disposition home or self-care (01) ==
LOC: RADWPI 08:34
PROVIDERS: Family Provider Internal Medicine; PCP Internal Medicine; Visit Provider Nurse Practitioner Family
DX: N93.9 Abnormal uterine and vaginal bleeding, unspecified (principal)
CPT/HCPCS: 76830; 76856

== ENCOUNTER 2019-08-19 14:38 | Outpatient (CLI) | payer MEDICARE, MEDICAID, SELFPAY ==
--- NOTE | 2019-08-19 14:47 | US_ITS ---
WS: [id number] URINARY BLADDER ULTRASOUND HISTORY: BLADDER DISTENTION COMPARISON: None available. Urinary bladder is well distended. No intraluminal filling defect. No free fluid adjacent to the urin sofia bladder. Bladder Prevoid: 13.2 cm x 10.8 cm x 8.1 cm. Prevoid volume: 606 ml. Bladder Postvoid: 1.8 cm x 2.0 cm x 1.1 cm. Postvoid volume: 2 ml. US/US bladder [id number] IMPRESSION: Normal bladder with no postvoid residual.
== END 2019-08-19 14:39 | disposition home or self-care (01) ==
PROVIDERS: Family Provider Internal Medicine; PCP Internal Medicine; Visit Provider Nurse Practitioner Family
DX: N32.89 Other specified disorders of bladder (principal)
CPT/HCPCS: 76857

== ENCOUNTER → 2019-08-24 08:03 | Outpatient (BNVA) | payer MEDICARE, MEDICAID, SELFPAY | PROVIDERS: Family Provider Internal Medicine; PCP Internal Medicine; Visit Provider Social Worker | DX: F60.3 Borderline personality disorder (principal); F43.12 Post-traumatic stress disorder, chronic; F33.3 Major depressive disorder, recurrent, severe with psychotic symptoms | CPT/HCPCS: 90834 ==

== ENCOUNTER 2019-08-31 09:26 | Outpatient (CLI) | payer MEDICARE, MEDICAID, SELFPAY | END 2019-08-31 09:27 | disposition home or self-care (01) | LOC: WOUND 09:28 | PROVIDERS: Family Provider Internal Medicine; PCP Internal Medicine; Visit Provider Nurse Practitioner Family | DX: I96 Gangrene, not elsewhere classified (principal); L98.492 Non-pressure chronic ulcer of skin of other sites with fat layer exposed | CPT/HCPCS: 11042; 87070; 87077; 87176; 87186; 87205; G0463 ==

== ENCOUNTER 2019-09-07 07:49 | Outpatient (CLI) | payer MEDICARE, MEDICAID, SELFPAY | END 2019-09-07 07:50 | disposition home or self-care (01) | PROVIDERS: Family Provider Internal Medicine; PCP Internal Medicine; Visit Provider Nurse Practitioner Family | DX: I96 Gangrene, not elsewhere classified (principal); L98.492 Non-pressure chronic ulcer of skin of other sites with fat layer exposed | CPT/HCPCS: 11042 ==

== ENCOUNTER → 2019-09-09 07:34 | Outpatient (BNVA) | payer MEDICARE, MEDICAID, SELFPAY | PROVIDERS: Family Provider Internal Medicine; PCP Internal Medicine; Visit Provider Nurse Practitioner Psychiatric/Mental Health | DX: F33.3 Major depressive disorder, recurrent, severe with psychotic symptoms (principal); F43.12 Post-traumatic stress disorder, chronic; F60.3 Borderline personality disorder; F12.20 Cannabis dependence, uncomplicated | CPT/HCPCS: 99213 ==

== ENCOUNTER → 2019-09-10 08:01 | Outpatient (BNVA) | payer MEDICARE, MEDICAID, SELFPAY | PROVIDERS: Family Provider Internal Medicine; PCP Internal Medicine; Visit Provider Social Worker | DX: F33.3 Major depressive disorder, recurrent, severe with psychotic symptoms (principal); F43.12 Post-traumatic stress disorder, chronic; F60.3 Borderline personality disorder | CPT/HCPCS: 90834 ==

== ENCOUNTER 2019-09-21 07:50 | Outpatient (CLI) | payer MEDICARE, MEDICAID, SELFPAY | END 2019-09-21 07:51 | disposition home or self-care (01) | LOC: WOUND 07:51 | PROVIDERS: Family Provider Internal Medicine; PCP Internal Medicine; Visit Provider Nurse Practitioner Family | DX: L08.9 Local infection of the skin and subcutaneous tissue, unspecified (principal); L98.492 Non-pressure chronic ulcer of skin of other sites with fat layer exposed | CPT/HCPCS: 11042 ==

== ENCOUNTER 2019-09-28 08:04 | Outpatient (CLI) | payer MEDICARE, MEDICAID, SELFPAY | END 2019-09-28 08:05 | disposition home or self-care (01) | LOC: WOUND 08:07 | PROVIDERS: Family Provider Internal Medicine; Visit Provider Nurse Practitioner Family | DX: Z09 Encounter for follow-up examination after completed treatment for conditions other than malignant neoplasm (principal) | CPT/HCPCS: 99212 ==

== ENCOUNTER 2019-10-01 20:00 | Outpatient (CLI) | payer MEDICARE, MEDICAID, SELFPAY | END 2019-10-01 20:01 | disposition home or self-care (01) | LOC: SLEEP 10-02 09:27 | PROVIDERS: Family Provider Internal Medicine; Visit Provider Internal Medicine | DX: G47.33 Obstructive sleep apnea (adult) (pediatric) (principal) | CPT/HCPCS: 95810 ==

== ENCOUNTER → 2019-10-22 07:39 | Outpatient (BNVA) | payer MEDICARE, MEDICAID, SELFPAY | PROVIDERS: Family Provider Internal Medicine; Visit Provider Nurse Practitioner Psychiatric/Mental Health | DX: F33.3 Major depressive disorder, recurrent, severe with psychotic symptoms (principal); F43.12 Post-traumatic stress disorder, chronic; F60.3 Borderline personality disorder; F12.20 Cannabis dependence, uncomplicated | CPT/HCPCS: 99213 ==

== ENCOUNTER 2019-11-12 16:11 | Emergency (ER) | payer MEDICARE, MEDICAID, SELFPAY ==
[2019-11-12 16:44] VITALS: BP 125/82; PULSE 96; RESP 14; TEMP 36.4; O2SAT 98; BMI 51.3
--- NOTE | 2019-11-12 17:47 | CTR_ITS ---
PROCEDURE INFORMATION: Exam: CT Abdomen And Pelvis Without Contrast Exam date and time: 11/12/2019 5:56 PM Age: 44 years old Clinical indication: Abdominal pain; Flank; Left; Prior surgery; Surgery date: 6+ months; Surgery type: Choley; Additional info: Left flank pain TECHNIQUE: Imaging protocol: Computed tomography of the abdomen and pelvis without contrast. Radiation optimization: All CT scans at this facility use at least one of these dose optimization techniques: automated exposure control; mA and/or kV adjustment per patient size (includes targeted exams where dose is matched to clinical indication); or iterative reconstruction. COMPARISON: CT abdomen pelvis w con* [id number] 06/12/2019 4:36 PM RADIATION DOSE METRICS: Total DLP (mGy-cm): 1764.69 FINDINGS: Lungs: Limited assessment lung bases without visible evidence of active cardiopulmonary process. Mediastinal space: Small hiatal hernia. Status post gastroplasty. Liver: Unremarkable. No mass. Gallbladder and bile ducts: status post cholecystectomy. Pancreas: Normal. No ductal dilation. Spleen: Normal. No splenomegaly. Adrenals: Normal. No mass. Kidneys and ureters: No visible hydronephrosis, hydroureter, ureterolithiasis, nephrolithiasis, or nephrocalcinosis. Stomach and bowel: No evidence for diverticulitis. Nonobstructive bowel pattern. No visible adynamic or reactive ileus. Small bowel anastomotic sutures left mid abdomen. Appendix: No evidence of appendicitis. Intraperitoneal space: No visible intraperitoneal ascites. Vasculature: Unremarkable. No abdominal aortic aneurysm. Lymph nodes: No visible mesenteric or retroperitoneal lymphadenopathy. Bladder: No visible bladder stone. Reproductive: Unremarkable as visualized. Bones/joints: No visible active osseous pathology. Soft tissues: Small supper umbilical ventral hernia containing fat only measuring 54 mm x 32 mm x [address]/CT kidney stone [id number] IMPRESSION: 1. No visible hydronephrosis, hydroureter, ureterolithiasis, nephrolithiasis, or nephrocalcinosis. 2. No visible evidence of active or acute abdominal or pelvic pathologic process. 3. Other nonurgent and nonemergent findings as detailed in text above. Radiation Dose CTDIVOL = (mGy): DLP = 1764.69 (mGy-cm)
--- NOTE | 2019-11-12 18:12 | W.ED.GENADLT ---
HPI - General Adult General: Chief complaint: Abdominal Pain Stated complaint: ABD PAIN Time Seen by Provider: 11/12/19 17:40 History of Present Illness: HPI narrative: Patient complained about left flank plain and left pelvic pain says pain radiates from those areas back and forth she is been nauseated did not feel good think she might have a kidney stone is having some urinary frequency also MD complaint: Flank pain Onset (ago): day(s) Location: abdomen Radiation: back Severity: mild Severity scale (1-10): 3 Quality: aching Pain Consistency: colicky Relieving factors: none Exacerbating factors: none Associated symptoms: Reports nausea and vomiting; Deny chest pain, dyspnea, headache(s) or rash Review of Systems Const: Denies: fever(s), chills or body aches Eyes: Denies: change in vision or blurry vision ENMT: Denies: throat pain or nasal congestion Card: Denies: chest pain or dyspnea on exertion Resp: Denies: dyspnea, productive cough or non-productive cough GI: Reports: nausea, vomiting and other (Left flank pain) : Reports: urinary urgency Musc: Denies: extremity pain Skin/Breast: Denies: rash Neuro: Denies: headache(s) Psych: Denies: anxiety or depression Hugo/Lymph: Denies: easy bruising PFSH ED PFSH: Medical History Borderline personality disorder Cannabis use disorder, moderate, dependence Chronic post-traumatic stress disorder COPD (chronic obstructive pulmonary disease) Hypothyroidism Major depressive disorder, recurrent, severe with psychotic symptoms Morbidly obese QUOC (obstructive sleep apnea) Polysubstance abuse Schizo-affective schizophrenia Surgical History History of appendectomy History of cholecystectomy Family History Mother Hypertension Cancer Father Hypertension Diabetes Cancer Brother Hypertension Diabetes Sister Diabetes Other Borderline personality disorder Hyperparathyroidism Psychiatric illness Social History (Updated 08/13/19 @ 10:06 by Marie Hopkins LPN) Smoking and tobacco status: never smoked Alcohol intake: never Desire information about substance/drug rehabilitation?: No Household members: significant other Housing: House Marital status: Legally Current gender identity: Female Female Reproductive History: Date of last menstrual period: 07/22/19 Physical Exam Const: COMMON NORMALS: no acute distress, average body habitus and patient oriented x3 HENMT: COMMON NORMALS: normocephalic HEAD & SCALP: normal to inspection and normocephalic FACE & SINUS: normal facial exam Eye: COMMON NORMALS: conjunctivae normal GENERAL EYE: appearance normal, both eyes and all related structures CONJUNCTIVA: Yes conjunctivae normal Neck/C-Spine: COMMON NORMALS: no JVD Chest: COMMONS NORMALS: normal inspection of the chest Resp: COMMON NORMALS: normal respiratory effort and clear to auscultation bilaterally AUSCULTATION: clear to auscultation bilaterally Cardio: COMMON NORMALS: no JVD, regular rate and regular rhythm RATE: regular rate RHYTHM: regular rhythm GI: COMMON NORMALS: Normal to inspection, nondistended, normoactive bowel sounds present PALPATION: Yes Other GI palpation findings present (Mild left flank pain) Extremity: COMMON NORMALS: normal to inspection and full ROM Neuro: COMMON NORMALS: patient oriented x3 Course Vital Signs: Vital signs: Vital Signs Temperature 97.6 F 11/12/19 16:44 Pulse Rate 96 11/12/19 16:44 Respiratory Rate 14 11/12/19 16:44 Blood Pressure 125/82 11/12/19 16:44 Pulse Oximetry 98 11/12/19 16:44 Discharge Plan Discharge Condition: Good Prescriptions: No Action risperidone [Risperdal] 2 mg tablet 2 mg PO .bedtime Qty: 90 RF: 2 cyproheptadine 4 mg tablet 8 mg PO .bedtime Qty: 180 RF: 2 trazodone 150 mg tablet 300 mg PO BEDTIME PRN (Reason: sleep) Qty: 180 RF: 1 metoprolol tartrate 25 mg tablet 25 mg PO DAILY RF: 0 tizanidine 4 mg tablet 4 mg PO Q8H PRN (Reason: muscle spasticity) Qty: 20 RF: 0 gabapentin 800 mg tablet 800 mg PO DAILY RF: 0 albuterol sulfate 90 mcg/actuation HFA aerosol inhaler 2 puff INHALATION Q4H PRN (Reason: Shortness Of Breath) RF: 0 calcitriol 0.25 mcg capsule 0.5 mcg PO BID RF: 0 Aimovig Autoinjector 70 mg/mL auto-injector 70 mg SUBCUT Q30D RF: 0 rizatriptan 10 mg Tablet See Rx Instructions .ROUTE .COMPLEX RF: 0 levothyroxine 25 mcg Tablet 25 mcg PO DAILY RF: 0 meloxicam 7.5 mg Tablet 7.5 mg PO BID RF: 0 Calcium 500 500 mg calcium (1,250 mg) Tablet 500 mg PO DAILY RF: 0 pantoprazole 40 mg Tablet,Delayed Release (Dr/Ec) 40 mg PO DAILY RF: 0 Topamax 100 mg Tablet 100 mg PO BID RF: 0 Coding Level of Care Code ED Sales Route Driver for Tamig Declan
[2019-11-12 18:29] LABS: Basophils # 0.1 10^3/uL (0.0-0.1); Basophils % 0.9 %; Eosinophils # 0.3 10^3/uL (0.0-0.8); Eosinophils % 4.6 %; Hematocrit 37.4 % (37.0-47.0); Hemoglobin 11.6 g/dL (11.5-15.3); Lymphocytes # 3.6 10^3/uL (0.8-4.8); Lymphocytes % 47.6 %; Mean Corpuscular Hemoglobin 26.1 pg (28.0-34.0); Mean Corpuscular Volume 84.2 fL (81-99); Mean Platelet Volume 10.6 fL (7.4-10.4); Monocytes # 0.5 10^3/uL (0.2-0.9); Monocytes % 7.1 %; Neutrophils # 2.96 10^3/uL (1.8-7.7); Neutrophils % 39.7 %; Nucleated Red Blood Cells % 0 %; Platelet Count 378 10^3/cmm (130-400); Red Blood Count 4.44 10^6/uL (4.1-5.3); Red Cell Distribution Width 17.7 % (12.1-15.1); White Blood Count 7.5 10^3/uL (4.0-10.0)
[2019-11-12] MEDS: sodium chloride 0.9% 1,000 ML 999 ML IV (18:45)
[2019-11-12] MEDS: ondansetron 2 mg/ML SDV 2 mL 4 MG IVP (18:46)
[2019-11-12] MEDS: ketorolac 30 mg/mL INJ IVP (18:46)
[2019-11-12 18:51] LABS: Alanine Aminotransferase 18 U/L (0-33); Albumin Level 4.1 g/dL (3.5-5.2); Alkaline Phosphatase 100 IU/L (35-105); Anion Gap 15.7 (5-19); Aspartate Amino Transferase 22 U/L (0-32); Blood Urea Nitrogen 15 mg/dL (6-20); Calcium 7.7 mg/dL (8.5-10.5); Carbon Dioxide 23 mmol/L (22-29); Chloride 103 mmol/L (98-107); Globulin 3.1 g/dL (1.3-4.6); Glomerular Filtration Rate 78.3 mL/min (90-130); Glucose 103 mg/dL (65-115); Lipase 36 U/L (13-60); Osmolality Calculated 283 mOsm/kg (285-295); Potassium 3.7 mmol/L (3.5-5.1); Sodium 138 mmol/L (136-145); Total Bilirubin 0.2 mg/dL (0.15-1.2); Total Protein 7.2 g/dL (6.6-8.7)
[2019-11-12 18:52] VITALS: BP 132/103; PULSE 85; RESP 20; O2SAT 98
[2019-11-12 19:02] LABS: Add Urine Microscopic? NO
[2019-11-12 19:05] LABS: HCG, Serum Qual Negative (Negative)
[2019-11-12 19:10] LABS: Bilirubin Urine Neg (NEGATIVE); Blood Urine Neg (Negative); Glucose Urine UA Norm (Normal); Ketones Urine Negative (Negative); Leukocyte Esterase Urine Negative (Negative); Nitrate Urine Negative (Negative); Protein Urine Neg (Negative); Specific Gravity, Urine 1.015 (1.005-1.030); Urine Appearance Clear (CLEAR); Urine Color Yellow (Yellow); Urobilinogen Urine Neg (Negative); pH Urine 6 (5-7)
[2019-11-12 19:49] VITALS: BP 141/87; PULSE 75; RESP 20; O2SAT 97
== END 2019-11-12 19:50 | disposition home or self-care (01) ==
PROVIDERS: Physician Assistant; Emergency Provider Nurse Practitioner Family; PCP Internal Medicine
DX: R10.9 Unspecified abdominal pain (principal); J44.9 Chronic obstructive pulmonary disease, unspecified
CPT/HCPCS: 12345; 36415; 74176; 80053; 81003; 83690; 84703; 85025; 96361; 96374; 96375; 99282; 99283; J1885; J2405; J7030

== ENCOUNTER 2019-11-18 10:08 | Outpatient (CLI) | payer MEDICARE, MEDICAID, SELFPAY ==
--- NOTE | 2019-11-18 10:19 | XRR_ITS ---
PROCEDURE INFORMATION: Exam: XR Thoracic Spine, 3 Views Exam date and time: 11/18/2019 10:47 AM Age: 44 years old Clinical indication: Pain in thoracic spine; Additional info: Thoracic back pain TECHNIQUE: Imaging protocol: XR of the thoracic spine, 3 views. COMPARISON: No relevant prior studies available. FINDINGS: Vertebrae: The alignment is normal. No visualized fracture. No paravertebral soft tissue prominence. Degenerative changes, moderate, throughout much of the thoracic spine No subluxation-no perched or jumped facets. The facets are without acute process. Soft tissues: See Vertebrae finding. XR/XR thoracic spine 2V [id number] IMPRESSION: No visualized fracture. Diffuse degenerative disc disease.
--- NOTE | 2019-11-18 10:19 | XRR_ITS ---
PROCEDURE INFORMATION: Exam: XR Lumbosacral Spine Complete with Flexion/Extension, 6 or More Views Exam date and time: 11/18/2019 10:43 AM Age: 44 years old Clinical indication: Low back pain; Additional info: Lumbar back pain TECHNIQUE: Imaging protocol: XR of the lumbosacral spine with flexion/extension, 6 or more views. COMPARISON: CT kidney stone [id number] 11/12/2019 6:15 PM FINDINGS: Vertebrae: Moderate degenerative disc disease diffusely reflected as decrease in disc space height and anterior endplate osteophytosis. No spondylolisthesis No pars defect. No fracture. Moderate facet hypertrophic changes most pronounced L3-L4, L4-L5, L5-S1. Mild anterior listhesis of L4 with respect to L5. Degenerative in nature. Severe facet arthropathy most pronounced L4-L5 Soft tissues: Unremarkable. XR/XR lumbar spine 6V w f/e [id number] IMPRESSION: Moderate degenerative disc disease. Consider MRI
== END 2019-11-18 10:09 | disposition home or self-care (01) ==
PROVIDERS: PCP Internal Medicine; Visit Provider Internal Medicine
DX: M51.36 Other intervertebral disc degeneration, lumbar region (principal); Z79.899 Other long term (current) drug therapy
CPT/HCPCS: 72070; 72114; 80061; 83036

== ENCOUNTER 2019-11-18 20:00 | Outpatient (CLI) | payer MEDICARE, MEDICAID, SELFPAY | END 2019-11-18 20:01 | disposition home or self-care (01) | LOC: SLEEP 11-19 10:12 | PROVIDERS: PCP Internal Medicine; Visit Provider Internal Medicine | DX: G47.33 Obstructive sleep apnea (adult) (pediatric) (principal) | CPT/HCPCS: 95811 ==

== ENCOUNTER 2019-12-02 10:39 | Outpatient (CLI) | payer MEDICARE, MEDICAID, SELFPAY ==
[2019-11-19 13:09] VITALS: BP 126/82; BMI 52.4
--- NOTE | 2019-12-02 10:47 | MR_ITS ---
WS: [id number] MRI LUMBAR SPINE NONCONTRAST TECHNIQUE: Sagittal T1, T2 and STIR imaging. Axial T1 and T2 imaging. CLINICAL INFORMATION: BACK PAIN LUMBAR COMPARISON: MRI 1 . FINDINGS: Counting performed from the craniocervical junction. L5 is sacralized. Recommend radiograph correlation prior to surgical intervention. Mild lumbar curve. No acute compression. No high-grade central canal stenosis. Slight anterolisthesis L3 on L4. L1-L2: Normal. L2-L3: No significant disc bulging. Moderate facet arthropathy. Spinal canal and foramen are patent. L3-L4: Slight anterolisthesis L3 on L4. Advanced facet arthropathy with small facet effusions. Mild r ight foraminal narrowing. Narrowing of the right subarticular recess. L4-L5: Shallow right pericentral protrusion. Slight impingement traversing right L5 nerve root. Mild right and no significant left foraminal narrowing. Moderate facet arthropathy. Small facet effusions. L5-S1: L5 is sacralized. Spinal canal and foramen are patent. Visualized pelvic bony structures: Normal. Paravertebral soft tissues: Normal. MR/MR lumbar spine wo con* [id number] IMPRESSION: 1. Counting performed from the craniocervical junction. L5 is sacralized. Otto mmend radiograph correlation prior to surgical intervention. 2. Slight anterolisthesis L3 on L4 with slight impingement on the right subart icular recess and traversing right L4 nerve root. This is progressed since 2012 . Mild right L3-4 foraminal narrowing. 3. Advanced facet arthropathy L3-4 with small facet effusions consistent with degenerative or inflammatory synovitis. 4. Shallow right pericentral protrusion L4-5 slightly impinges the traversing right L5 nerve root progressed since 2012. Mild right L4-5 foraminal narrowing. Moderate facet arthropathy at this level.
== END 2019-12-02 10:40 | disposition home or self-care (01) ==
LOC: RADSHAW 10:46
PROVIDERS: PCP Internal Medicine; Visit Provider Nurse Practitioner Family
DX: M47.816 Spondylosis without myelopathy or radiculopathy, lumbar region (principal); M51.26 Other intervertebral disc displacement, lumbar region
CPT/HCPCS: 72148

== ENCOUNTER → 2019-12-15 07:38 | Outpatient (BNVA) | payer MEDICARE, MEDICAID, SELFPAY ==
[2019-11-19 13:09] VITALS: BP 126/82; BMI 52.4
== END ==
PROVIDERS: PCP Internal Medicine; Visit Provider Nurse Practitioner Psychiatric/Mental Health
DX: F33.3 Major depressive disorder, recurrent, severe with psychotic symptoms (principal); F43.12 Post-traumatic stress disorder, chronic; F60.3 Borderline personality disorder; F12.20 Cannabis dependence, uncomplicated
CPT/HCPCS: 99214

== ENCOUNTER → 2020-01-12 07:42 | Outpatient (BNVA) | payer MEDICARE, MEDICAID, SELFPAY ==
[2019-11-19 13:09] VITALS: BP 126/82; BMI 52.4
== END ==
PROVIDERS: PCP Internal Medicine; Visit Provider Nurse Practitioner Psychiatric/Mental Health
DX: F33.3 Major depressive disorder, recurrent, severe with psychotic symptoms (principal); F43.12 Post-traumatic stress disorder, chronic; F60.3 Borderline personality disorder; F12.20 Cannabis dependence, uncomplicated
CPT/HCPCS: 99214

== ENCOUNTER → 2020-02-24 07:23 | Outpatient (BNVA) | payer MEDICARE, MEDICAID, SELFPAY ==
[2019-11-19 13:09] VITALS: BP 126/82; BMI 52.4
== END ==
PROVIDERS: PCP Internal Medicine; Visit Provider Nurse Practitioner Psychiatric/Mental Health
DX: F33.3 Major depressive disorder, recurrent, severe with psychotic symptoms (principal); F43.12 Post-traumatic stress disorder, chronic; F60.3 Borderline personality disorder; F12.20 Cannabis dependence, uncomplicated
CPT/HCPCS: 99213

== ENCOUNTER → 2020-05-06 15:50 | Outpatient (BNVA) | payer OTHER, MEDICAID, SELFPAY ==
[2019-11-19 13:09] VITALS: BP 126/82; BMI 52.4
== END ==
PROVIDERS: PCP Internal Medicine; Visit Provider Podiatrist Foot & Ankle Surgery
DX: M79.671 Pain in right foot (principal); M79.672 Pain in left foot
CPT/HCPCS: 73630

== ENCOUNTER → 2020-05-10 07:27 | Outpatient (BNVA) | payer MEDICARE, MEDICAID, SELFPAY ==
[2019-11-19 13:09] VITALS: BP 126/82; BMI 52.4
== END ==
PROVIDERS: PCP Internal Medicine; Visit Provider Nurse Practitioner Psychiatric/Mental Health
DX: F33.3 Major depressive disorder, recurrent, severe with psychotic symptoms (principal); F43.12 Post-traumatic stress disorder, chronic; F60.3 Borderline personality disorder; F12.20 Cannabis dependence, uncomplicated; F31.64 Bipolar disorder, current episode mixed, severe, with psychotic features
CPT/HCPCS: 99214

== ENCOUNTER 2020-05-13 07:36 | Outpatient (CLI) | payer MEDICARE, MEDICAID, SELFPAY ==
[2019-11-19 13:09] VITALS: BP 126/82; BMI 52.4
--- NOTE | 2020-05-13 07:42 | MM_ITS ---
WS: [id number] BILATERAL DIGITAL SCREENING MAMMOGRAPHY WITH CAD CLINICAL INFORMATION: SCREENING HISTORY: Screening mammogram. No current complaints. COMPARISON: TECHNIQUE: Bilateral CC and MLO views. FINDINGS: Scattered fibroglandular densities bilaterally. No suspicious focal mass, asymmetry, calcifications, or architectural distortion. No evidence of malignancy. Stable intramammary lymph node right breast. MM/[place] [id number] IMPRESSION: BI-RADS: 2-Benign FOLLOW UP: 1 Year Follow-up Recommend return to annual screening mammography.
== END 2020-05-13 07:37 | disposition home or self-care (01) ==
LOC: RADSHAW 07:41
PROVIDERS: PCP Internal Medicine; Visit Provider Internal Medicine
DX: Z12.31 Encounter for screening mammogram for malignant neoplasm of breast (principal)
CPT/HCPCS: 77067

== ENCOUNTER 2020-05-31 15:32 | Outpatient (CLI) | payer MEDICARE, MEDICAID, SELFPAY ==
[2019-11-19 13:09] VITALS: BP 126/82; BMI 52.4
--- NOTE | 2020-05-31 | XRR_ITS ---
[facility] Final Radiology Report Call: [phone] Name: CHILO ALMANZA Age: 45Years F Date: 05/31/2020 SSN: -- : 1975 Study: XR WRIST COMPLETE MIN OF 3 VIEWS Requesting Physician: FRED WILLIAMSON Images: 3 Provided Clinical History: LT WRIST PAIN CONFIDENTIALITY STATEMENT PROCEDURE INFORMATION: Exam: XR Left Wrist Exam date and time: 05/31/2020 3:46 PM Age: 45 years old Clinical indication: Pain; Wrist; Left; Additional info: Lt wrist pain TECHNIQUE: Imaging protocol: XR Left wrist. Views: 3 or more views. COMPARISON: No relevant prior studies available. FINDINGS: Bones/joints: Mild osteophytic spurring at the base of thumb. No fractures. Unremarkable joint alignment. Negative for osteonecrosis. No aggressive bone lesion. Soft tissues: Normal. IMPRESSION: Negative for acute left wrist abnormality. Thank you for allowing us to participate in the care of your patient. Dictated and Authenticated by: Julius Braswell MD 05/31/2020 4:11 PM Central Time ([place] & [place]) JORDAN
--- NOTE | 2020-05-31 15:45 | XRR_ITS ---
PROCEDURE INFORMATION: Exam: XR Left Hand Exam date and time: 05/31/2020 4:02 PM Age: 45 years old Clinical indication: Pain; Finger(s); Left; Additional info: Lt thumb pain TECHNIQUE: Imaging protocol: XR Left hand. Views: 3 or more views. COMPARISON: No relevant prior studies available. FINDINGS: Bones/joints: Joint space narrowing throughout the interphalangeal joint spaces. Scattered marginal osteophytes between digits as well as base of thumb. No fractures. No aggressive bone lesion. Joint spaces are aligned. Soft tissues: Normal. XR/XR hand LT min 3V* [id number] IMPRESSION: Negative for acute left hand abnormality.
== END 2020-05-31 15:33 | disposition home or self-care (01) ==
PROVIDERS: PCP Internal Medicine; Visit Provider Nurse Practitioner Family
DX: M79.645 Pain in left finger(s) (principal); M67.834 Other specified disorders of tendon, left wrist
CPT/HCPCS: 73110; 73130

== ENCOUNTER → 2020-06-09 07:53 | Outpatient (BNVA) | payer MEDICARE, MEDICAID, SELFPAY ==
[2019-11-19 13:09] VITALS: BP 126/82; BMI 52.4
== END ==
PROVIDERS: PCP Internal Medicine; Visit Provider Nurse Practitioner Psychiatric/Mental Health
DX: F33.3 Major depressive disorder, recurrent, severe with psychotic symptoms (principal); F43.12 Post-traumatic stress disorder, chronic; F60.3 Borderline personality disorder; F12.20 Cannabis dependence, uncomplicated; F31.64 Bipolar disorder, current episode mixed, severe, with psychotic features
CPT/HCPCS: 99214

== ENCOUNTER 2020-06-15 10:01 | Outpatient (CLI) | payer MEDICARE, MEDICAID, SELFPAY ==
[2019-11-19 13:09] VITALS: BP 126/82; BMI 52.4
== END 2020-06-15 10:02 | disposition home or self-care (01) ==
LOC: SPT 10:02
PROVIDERS: PCP Internal Medicine; Visit Provider Orthopaedic Surgery
DX: Z46.89 Encounter for fitting and adjustment of other specified devices (principal); M18.12 Unilateral primary osteoarthritis of first carpometacarpal joint, left hand
CPT/HCPCS: L3924

== ENCOUNTER → 2020-07-26 09:11 | Outpatient (BNVA) | payer MEDICARE, MEDICAID, SELFPAY ==
[2019-11-19 13:09] VITALS: BP 126/82; BMI 52.4
== END ==
PROVIDERS: PCP Internal Medicine; Visit Provider Nurse Practitioner Psychiatric/Mental Health
DX: F31.64 Bipolar disorder, current episode mixed, severe, with psychotic features (principal); F43.12 Post-traumatic stress disorder, chronic; F60.3 Borderline personality disorder; F12.20 Cannabis dependence, uncomplicated
CPT/HCPCS: 99214

== ENCOUNTER 2020-08-10 14:43 | Outpatient (CLI) | payer MEDICARE, MEDICAID, SELFPAY ==
[2019-11-19 13:09] VITALS: BP 126/82; BMI 52.4
== END 2020-08-10 14:44 | disposition home or self-care (01) ==
LOC: SPT 14:44
PROVIDERS: PCP Internal Medicine; Visit Provider Podiatrist Foot & Ankle Surgery
DX: Z46.89 Encounter for fitting and adjustment of other specified devices (principal); M18.12 Unilateral primary osteoarthritis of first carpometacarpal joint, left hand
CPT/HCPCS: 97760; L4397

== ENCOUNTER → 2020-08-16 15:52 | Outpatient (BNVA) | payer MEDICARE, MEDICAID, SELFPAY ==
[2019-11-19 13:09] VITALS: BP 126/82; BMI 52.4
== END ==
PROVIDERS: PCP Internal Medicine; Visit Provider Surgery
DX: E61.1 Iron deficiency (principal); Z11.52 Encounter for screening for COVID-19
CPT/HCPCS: 87635

== ENCOUNTER 2020-08-23 06:17 | Day surgery (SDC) | payer MEDICARE, MEDICAID, SELFPAY ==
[2019-11-19 13:09] VITALS: BP 126/82; BMI 52.4
[2020-08-19 13:04] VITALS: BMI 54.7
[2020-08-23 06:43] LABS: OR HCG Qualitative Urine Negative (Negative)
[2020-08-23 06:44] VITALS: BP 111/78; PULSE 84; RESP 18; TEMP 36.9; O2SAT 98
[2020-08-23] MEDS: sodium chloride 0.9% 1,000 ML 30 ML IV (06:52)
--- NOTE | 2020-08-23 07:38 | ANES.PREANE2 ---
Pre-Anesthetic Assessment Pre-Anesthetic Assessment: Height/Weight: Height 1.6 m Weight 140.16 kg Temp Pulse Resp BP Pulse Ox 98.4 F 84 18 111/78 98 08/23/20 06:44 08/23/20 06:44 08/23/20 06:44 08/23/20 06:44 08/23/20 06:44 Proposed Procedure: Operation Date: 08/23/20 08:00 Proposed Procedures p EGD/Colon 65460 E61.1 15730(Not Applicable) - Ovi Rogel MD s Colonoscopy(Not Applicable) - Ovi Rogel MD Was Beta Zuly taken within 24 hours: Yes Last intake: Intake Last Liquid Date 08/22/20 Last Liquid Time 00:00 Last Solid Date 08/21/20 Last Solid Time 16:00 Social: Social History: No alcohol and No tobacco Comment: Cannibus smoker Airway: Submandibular: WNL Cervical ROM: WNL MP: 2 Dentition: False History/ROS: No significant history except as noted and No significant complaints Pulmonary: Pulmonary: COPD and Sleep apnea CV/HEM: CV/HEM: HTN : : None reported Hepatic: Hepatic: None reported GI: GI: GERD Metabolic: Metabolic: Morbid obesity Musc/skel: Musc/skel: Weakness and None reported Neuropsych: Neuropsych: Bipolar Anesthetic Plan: ASA status: 3 Anesthesia: Anesthesia Evaluation and MAC Risk of > 500 ml blood loss (7ml/kg in children): No Meds/Allergies Current Medications: Current Medications Generic Name Dose Route Start Last Admin Trade Name Freq PRN Reason Stop Dose Admin Sodium Chloride 1,000 mls @ 30 ml s/hr 08/23/20 06:45 08/23/20 06:52 Sodium Chloride 0.9% IV 08/24/20 06:44 30 mls/hr .Q24H DREA Administration PFSH Anesthesia PFSH: Medical History Bipolar I, most recent episode mixed, severe with psychotic behavior Borderline personality disorder Cannabis use disorder, moderate, dependence Chronic post-traumatic stress disorder COPD (chronic obstructive pulmonary disease) Hypertension Hypothyroidism QUOC (obstructive sleep apnea) Polysubstance abuse Surgical History H/O esophagogastroduodenoscopy With dilation after bypass History of appendectomy History of arthroscopy of both knees 2004 History of cholecystectomy History of colonoscopy 2000 History of gastric bypass 2000 Family History Mother Hypertension Cancer Father Hypertension Diabetes Cancer Brother Hypertension Diabetes Sister Diabetes Other Borderline personality disorder Hyperparathyroidism Psychiatric illness Social History Smoking and tobacco status: never smoked Alcohol intake: never Desire information about substance/drug rehabilitation?: No Household members: significant other Housing: House Marital status: Legally Current gender identity: Female Female Reproductive History: Date of last menstrual period: 08/18/20 Data Anesthesia Other Labs: Laboratory Results - last 48 hr 08/23/20 06:35 Urine HCG, Qual Negative Cardiac Studies: No Data to Display
--- NOTE | 2020-08-23 07:55 | W.PM.OPSUD ---
Surgery/Procedure H&P Update DATE OF PROCEDURE: August 23, 2020 DATE H&P PERFORMED: 08/05/20 H&P UPDATE INFORMATION: I have reviewed H&P completed within last 30 days, I have examined patient prior to procedure and No changes to prior documentation PLANNED PROCEDURE: Operation Date: 08/23/20 08:00 Proposed Procedures p EGD/Colon 08636 E61.1 74829(Not Applicable) - Ovi Rogel MD s Colonoscopy(Not Applicable) - Ovi Rogel MD
[2020-08-23 08:20] VITALS: BP 119/90; PULSE 67; RESP 20; TEMP 36.3; O2SAT 98
[2020-08-23 08:35] VITALS: BP 111/57; PULSE 66; RESP 16; TEMP 36.5; O2SAT 97
--- NOTE | 2020-08-23 12:28 | ANE.PACU2 ---
Inpatient post-anesthesia follow up: Airway intact: Yes Vital signs: Temperature 97.7 F Pulse Rate 66 Respiratory Rate 16 Blood Pressure 111/57 Pulse Oximetry 97 Oxygen Delivery Me thod Room Air Oxygen Flow Rate Fraction of Inspir ed Oxygen Hydration adequate: Yes Nausea and vomiting: No Pain level: 1 Mental status: Baseline
== END 2020-08-23 08:50 | disposition home or self-care (01) ==
PROVIDERS: Anesthesiology; PCP Internal Medicine; Visit Provider Surgery
PROC: 0DJ08ZZ Inspection of Upper Intestinal Tract, Via Natural or Artificial Opening Endoscopic (ICD-10-PCS; CPT 43235; principal; 2020-08-23 08:00)
PROC: 0DJD8ZZ Inspection of Lower Intestinal Tract, Via Natural or Artificial Opening Endoscopic (ICD-10-PCS; CPT 45378; 2020-08-23 08:00)
DX: E61.1 Iron deficiency (principal); K63.89 Other specified diseases of intestine; J44.9 Chronic obstructive pulmonary disease, unspecified; I10 Essential (primary) hypertension; K21.9 Gastro-esophageal reflux disease without esophagitis; E66.01 Morbid (severe) obesity due to excess calories; Z68.43 Body mass index [BMI] 50.0-59.9, adult; E03.9 Hypothyroidism, unspecified; G47.33 Obstructive sleep apnea (adult) (pediatric)
CPT/HCPCS: 43235; 45378; 84703; 96360; J2704; J7030

== ENCOUNTER → 2020-09-09 09:54 | Day surgery (SDC) | payer MEDICARE, MEDICAID, SELFPAY ==
[2019-11-19 13:09] VITALS: BP 126/82; BMI 52.4
[2020-09-09 10:53] VITALS: BP 139/81; PULSE 71; RESP 18; TEMP 36.1; O2SAT 94
[2020-09-09] MEDS: ferric carboxy (IVPB) 750 MG in sodium chloride 0.9% (100 ml) 100 ML 345 MG IV (11:00)
[2020-09-09 11:01] VITALS: BMI 54.6
== END ==
PROVIDERS: PCP Internal Medicine; Visit Provider Internal Medicine
DX: D50.9 Iron deficiency anemia, unspecified (principal); Z98.84 Bariatric surgery status
CPT/HCPCS: 96365; J1439

== ENCOUNTER 2020-09-09 09:57 | Outpatient (CLI) | payer MEDICARE, MEDICAID, SELFPAY ==
[2019-11-19 13:09] VITALS: BP 126/82; BMI 52.4
--- NOTE | 2020-09-09 10:16 | XR_ITS ---
WS: [id number] Lumbar spine, 3 views, 09/09/2020 Clinical Data: FALL, SACRAL PAIN Comparison: Lumbar spine, 11/18/2019. Findings: No compression fractures are seen. There is disc space narrowing at L5-S1. There is a 0.3 cm subluxat ion of L4 on L5. The transverse processes and SI joints are normal. There are clips in the right upper quadrant from a cholecystectomy. There are faint densities overlyi ng the proximal portion of the left 11th rib which may be on the patient's skin. XR/XR lumbar spine 2-3V* [id number] Impression: 1. Degenerative disc narrowing at L5-S1. 2. 0.3 cm subluxation of L4 on L5.
== END 2020-09-09 09:58 | disposition home or self-care (01) ==
PROVIDERS: PCP Internal Medicine; Visit Provider Internal Medicine
DX: M47.897 Other spondylosis, lumbosacral region (principal); M54.5 Low back pain; M53.3 Sacrococcygeal disorders, not elsewhere classified
CPT/HCPCS: 72100

== ENCOUNTER → 2020-09-16 10:46 | Day surgery (SDC) | payer MEDICARE, MEDICAID, SELFPAY ==
[2019-11-19 13:09] VITALS: BP 126/82; BMI 52.4
[2020-09-16 11:05] VITALS: BP 126/85; PULSE 76; RESP 18; TEMP 36.1; O2SAT 96
[2020-09-16] MEDS: ferric carboxy (IVPB) 750 MG in sodium chloride 0.9% (100 ml) 100 ML 345 MG IV (11:29)
--- NOTE | 2020-09-16 12:31 | PC.NURSE ---
IV REMOVED BEFORE DISCHARGE
== END ==
PROVIDERS: PCP Internal Medicine; Visit Provider Internal Medicine
DX: D50.9 Iron deficiency anemia, unspecified (principal); Z98.84 Bariatric surgery status
CPT/HCPCS: 96365; J1439

== ENCOUNTER → 2020-09-20 07:27 | Outpatient (BNVA) | payer MEDICARE, MEDICAID, SELFPAY ==
[2019-11-19 13:09] VITALS: BP 126/82; BMI 52.4
== END ==
PROVIDERS: PCP Internal Medicine; Visit Provider Nurse Practitioner Psychiatric/Mental Health
DX: F31.64 Bipolar disorder, current episode mixed, severe, with psychotic features (principal); F43.12 Post-traumatic stress disorder, chronic; F60.3 Borderline personality disorder; F12.20 Cannabis dependence, uncomplicated; Z79.899 Other long term (current) drug therapy
CPT/HCPCS: 99214

== ENCOUNTER → 2020-10-13 10:49 | Outpatient (BNVA) | payer MEDICARE, MEDICAID, SELFPAY ==
[2019-11-19 13:09] VITALS: BP 126/82; BMI 52.4
== END ==
PROVIDERS: PCP Internal Medicine; Visit Provider Nurse Practitioner Psychiatric/Mental Health
DX: F31.64 Bipolar disorder, current episode mixed, severe, with psychotic features (principal); F43.12 Post-traumatic stress disorder, chronic; F60.3 Borderline personality disorder; F12.20 Cannabis dependence, uncomplicated; Z79.899 Other long term (current) drug therapy
CPT/HCPCS: 80053; 80061; 83036; 99215

== ENCOUNTER 2020-10-28 07:31 | Outpatient (RCR) | payer MEDICARE, MEDICAID, SELFPAY ==
[2019-11-19 13:09] VITALS: BP 126/82; BMI 52.4
== END 2020-11-19 23:59 | disposition home or self-care (01) ==
LOC: SPT 07:31
PROVIDERS: PCP Internal Medicine; Referring Provider Internal Medicine Cardiovascular Disease; Visit Provider Internal Medicine Cardiovascular Disease
DX: M54.5 Low back pain (principal)
CPT/HCPCS: 97110; 97161

== ENCOUNTER 2020-11-20 06:00 | Outpatient (RCR) | payer MEDICARE, MEDICAID, SELFPAY ==
[2019-11-19 13:09] VITALS: BP 126/82; BMI 52.4
== END 2020-12-20 23:59 | disposition home or self-care (01) ==
LOC: SPT 06:00
PROVIDERS: PCP Internal Medicine; Referring Provider Internal Medicine Cardiovascular Disease; Visit Provider Internal Medicine Cardiovascular Disease
DX: Z46.89 Encounter for fitting and adjustment of other specified devices (principal); M21.621 Bunionette of right foot; M21.622 Bunionette of left foot; G60.9 Hereditary and idiopathic neuropathy, unspecified
CPT/HCPCS: 97110

== ENCOUNTER → 2020-12-06 07:52 | Outpatient (BNVA) | payer MEDICARE, MEDICAID, SELFPAY ==
[2019-11-19 13:09] VITALS: BP 126/82; BMI 52.4
== END ==
PROVIDERS: PCP Internal Medicine; Visit Provider Nurse Practitioner Psychiatric/Mental Health
DX: F31.64 Bipolar disorder, current episode mixed, severe, with psychotic features (principal); F43.12 Post-traumatic stress disorder, chronic; F60.3 Borderline personality disorder; F12.20 Cannabis dependence, uncomplicated
CPT/HCPCS: 99214

== ENCOUNTER 2020-12-07 15:50 | Outpatient (CLI) | payer MEDICARE, MEDICAID, SELFPAY ==
[2019-11-19 13:09] VITALS: BP 126/82; BMI 52.4
== END 2020-12-07 15:51 | disposition home or self-care (01) ==
LOC: SPT 15:51
PROVIDERS: PCP Internal Medicine; Visit Provider Podiatrist Foot & Ankle Surgery
DX: Z46.89 Encounter for fitting and adjustment of other specified devices (principal); M54.5 Low back pain
CPT/HCPCS: 97760; L3030

== ENCOUNTER → 2020-12-23 07:08 | Outpatient (BNVA) | payer MEDICARE, MEDICAID, SELFPAY ==
[2019-11-19 13:09] VITALS: BP 126/82; BMI 52.4
== END ==
PROVIDERS: PCP Internal Medicine; Visit Provider Nurse Practitioner Psychiatric/Mental Health
DX: F31.64 Bipolar disorder, current episode mixed, severe, with psychotic features (principal); F43.12 Post-traumatic stress disorder, chronic; F60.3 Borderline personality disorder; F12.20 Cannabis dependence, uncomplicated
CPT/HCPCS: 99214

== ENCOUNTER → 2021-01-20 07:18 | Outpatient (BNVA) | payer MEDICARE, MEDICAID, SELFPAY ==
[2019-11-19 13:09] VITALS: BP 126/82; BMI 52.4
== END ==
PROVIDERS: PCP Internal Medicine; Visit Provider Nurse Practitioner Psychiatric/Mental Health
DX: F31.64 Bipolar disorder, current episode mixed, severe, with psychotic features (principal); F43.12 Post-traumatic stress disorder, chronic; F60.3 Borderline personality disorder; F12.20 Cannabis dependence, uncomplicated; Z79.899 Other long term (current) drug therapy
CPT/HCPCS: 80053; 99214

== ENCOUNTER → 2021-01-23 08:30 | Outpatient (BNVA) | payer MEDICARE, MEDICAID, SELFPAY ==
[2019-11-19 13:09] VITALS: BP 126/82; BMI 52.4
== END ==
PROVIDERS: PCP Internal Medicine; Referring Provider Internal Medicine Cardiovascular Disease; Visit Provider Anesthesiology Pain Medicine
DX: G89.29 Other chronic pain (principal); M47.816 Spondylosis without myelopathy or radiculopathy, lumbar region; M51.16 Intervertebral disc disorders with radiculopathy, lumbar region; M79.604 Pain in right leg
CPT/HCPCS: 99205

== ENCOUNTER → 2021-01-31 13:31 | Outpatient (BNVA) | payer MEDICARE, MEDICAID, SELFPAY ==
[2019-11-19 13:09] VITALS: BP 126/82; BMI 52.4
== END ==
PROVIDERS: PCP Internal Medicine; Visit Provider Anesthesiology Pain Medicine
DX: M47.816 Spondylosis without myelopathy or radiculopathy, lumbar region (principal)
CPT/HCPCS: 64493; 64494; 64495; J3490

== ENCOUNTER 2021-02-08 17:20 | Inpatient (IN) | payer MEDICARE, MEDICAID, SELFPAY ==
[2021-01-31 15:41] VITALS: BP 126/82; BMI 52.4
[2021-02-08 17:32] VITALS: BP 145/82; PULSE 82; RESP 20; TEMP 36.4; O2SAT 95; BMI 54.9
[2021-02-08 17:59] LABS: Basophils # 0.1 10^3/uL (0.0-0.1); Eosinophils # 0.4 10^3/uL (0.0-0.8); Eosinophils % 6.1 %; Hematocrit 42.8 % (37.0-47.0); Hemoglobin 14.1 g/dL (11.5-15.3); Lymphocytes # 2.6 10^3/uL (0.8-4.8); Lymphocytes % 41.9 %; Mean Corpuscular HGB Conc 32.9 g/dL (30.0-36.0); Mean Corpuscular Volume 97.1 fl (81-99); Mean Platelet Volume 10.4 fL (7.4-10.4); Monocytes # 0.4 10^3/uL (0.2-0.9); Monocytes % 6.4 %; Neutrophils # 2.71 10^3/uL (1.8-7.7); Neutrophils % 44.4 %; Nucleated Red Blood Cells % 0 %; Platelet Count 304 10^3/cmm (130-400); Red Blood Count 4.41 10^6/uL (4.1-5.3); Red Cell Distribution Width 13.2 % (12.1-15.1); White Blood Count 6.1 10^3/uL (4.0-10.0)
[2021-02-08 18:18] LABS: Acetaminophen 18.4 ug/mL (10-30); Anion Gap 14.8 (5-19); Blood Urea Nitrogen 12 mg/dL (6-20); Calcium 7.5 mg/dL (8.5-10.5); Carbon Dioxide 22 mmol/L (22-29); Chloride 101 mmol/L (98-107); Glomerular Filtration Rate 90.5 mL/min (90-130); Glucose 66 mg/dL (65-115); Osmolality Calculated 276 mOsm/kg (285-295); Potassium 3.8 mmol/L (3.5-5.1); Sodium 134 mmol/L (136-145)
[2021-02-08 18:19] LABS: Salicylate < 0.3 mg/dL (3-10)
--- NOTE | 2021-02-08 18:29 | ECG_ITS ---
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
--- NOTE | 2021-02-08 18:33 | PC.NURSE ---
Poison control called. Talked with Marah and review lab work and pt's statements, plus presentation of symptoms. Recommendations: Liver Enzymes with EKG now and then repeat Tylenol level and EKG in 2 hours. Will fax the recommendations. Notified provider of recommendations.
[2021-02-08 18:42] LABS: Amphetamines Screen Urine Negative (Negative); Barbiturates Screen Urine Negative (Negative); Benzodiazepines Screen Urine Positive (Negative); Cocaine Screen Urine Negative (Negative); Opiate Screen Urine Negative (Negative); PCP Screen Urine Negative (Negative); THC Screen Urine Positive (Negative)
[2021-02-08 19:01] LABS: Alanine Aminotransferase 9 U/L (0-33); Albumin Level 3.9 g/dL (3.5-5.2); Alkaline Phosphatase 78 IU/L (35-105); Aspartate Amino Transferase 14 U/L (0-32); Globulin 2.9 g/dL (1.3-4.6); Total Bilirubin 0.4 mg/dL (0.15-1.2); Total Protein 6.8 g/dL (6.6-8.7)
--- NOTE | 2021-02-08 19:28 | ECG_ITS ---
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
--- NOTE | 2021-02-08 19:37 | ED_ITS ---
HPI - General Adult General: Chief complaint: Psychiatric Symptoms Stated complaint: SI Time Seen by Provider: 02/08/21 17:30 History of Present Illness: HPI narrative: HPI: [46]yo patient w/ hx of chronic back pain BIBA for ingestion of 28 tablets of 500mg extended release tylenol PM. On arrival, the patient is AAOx3 and cooperative with my evaluation. No focal complaints of chest pain, shortness of breath, palpitations, N/V, focal GI/ complaints. Currently denies SI/HI. No complaints of hallucinations. Onset: chronic Duration: ongoing Location: home Severity: severe Review of Systems Narrative: Constitutional: No fever, no chills. HEENT: No vision changes CV: No chest pain, no palpitations PULM: No productive cough, no dyspnea. GI: No abdominal pain, no N/V/D. : No dysuria MSKEL: No muscle pain SKIN: No new rashes, no lesions. NEURO: No headache, no focal weakness. HEME: No visible bruises PSYCH: Normal mood PFSH ED PFSH: Medical History Bipolar I, most recent episode mixed, severe with psychotic behavior Borderline personality disorder Cannabis use disorder, moderate, dependence Chronic post-traumatic stress disorder COPD (chronic obstructive pulmonary disease) Hypertension Hypothyroidism QUOC (obstructive sleep apnea) Polysubstance abuse Psychiatric care Surgical History H/O esophagogastroduodenoscopy (08/23/20) 2000: With dilation after bypass 2020: normal , bypass changes History of appendectomy History of arthroscopy of both knees 2004 History of cholecystectomy History of colonoscopy (08/23/20) 2000 2020: normal History of gastric bypass 2000 Family History Mother Hypertension Cancer Father Hypertension Diabetes Cancer Brother Hypertension Diabetes Sister Diabetes Other Borderline personality disorder Hyperparathyroidism Psychiatric illness Social History Alcohol intake: never Desire information about substance/drug rehabilitation?: No Household members: significant other Housing: House Marital status: Legally Current gender identity: Female Female Reproductive History: Date of last menstrual period: 08/18/20 Physical Exam Narrative: EXAM NARRATIVE: Head: Atraumatic Eyes: PERRL, conjunctiva without injection, eyes tracking ENT: Mucous membrane moist NECK: Supple without lymphadenopathy LUNGS: LCTAB CV: RRR ABDOMEN: Soft, nontender EXTREMITY: Normal ROM SKIN: No rash or erythema NEURO: Awake and alert. No focal weakness PSYCH: Cooperative mood and affect. Course Vital Signs: Vital signs: Vital Signs Temperature 98.9 F 02/09/21 19:54 Pulse Rate 66 02/09/21 20:00 Respiratory Rate 17 02/09/21 20:00 Blood Pressure 152/83 02/09/21 19:54 Pulse Oximetry 97 02/09/21 20:00 MDM - General Adult MDM Narrative: Medical decision making narrative: [46]yo patient w/ hx of chronicback pain presenting for ingestion of 28 tablets of tylenol PM over 24 hrs. HDS, exam within normal limit Thoughts are linear and organized, and the patient has no AH/VH, or HI. Clinically the patient displays no overt toxidrome; they are well appearing, with low suspicion for toxic ingestion given history and exam. Symptoms unlikely 2/2 anemia, hypothyroidism, infection, or ICH. Workup: CBC, CMP, Lipase, salicylate/tylenol, UDS Lab findings: wnl, +benzo/+marijuana Initial EKG: EKG showing regular sinus rhythm at HT of [62]. Normal axis. No ST elevations/depressions to suggest coronary occlusion. Normal VA, QRS, QT intervals. [7:40pm] On reassessment, labs and workup wnl. Patient is hemodynamically stable with no acute medical complaints. Case discussed with psychiatric provider Dr. Greenberg at [facility] psych inpatient with recommendation for admission. He was also discussed with poison control who noted the patient has a subtoxic dose of Tylenol since patient ingested <150mg/kg over 24 hrs. EKG did not show any signs of sodium channel blockade or QTC prolongation on 2 separate EKGs. Repeat EKG showing regular sinus rhythm at HT of [58]. Normal axis. No ST elevations/depressions to suggest coronary occlusion. Normal VA, QRS, QT intervals. Disposition: Psych Lab Data: Labs: Lab Results 02/08/21 02/08/21 02/08/21 17:46 17:50 17:50 WBC 6.1 10^3/uL 10^3/ uL (4.0-10.0) RBC 4.41 10^6/uL 10^6 /uL (4.1-5.3) Hgb 14.1 g/dL g/dL (11.5-15.3) Hct 42.8 % % (37.0-47.0) MCV 97.1 fl fl (81-99) MCH 32.0 pg pg (28.0-34.0) MCHC 32.9 g/dL g/dL (30.0-36.0) RDW 13.2 % % (12.1-15.1) Plt Count 304 10^3/cmm 10^3 /cmm (130-400) MPV 10.4 fL fL (7.4-10.4) Neut % (Auto) 44.4 % % Lymph % (Auto) 41.9 % % [place] % (Auto) 6.4 % % Eos % (Auto) 6.1 % % Baso % (Auto) 1.0 % % Neut # (Auto) 2.71 10^3/uL 10^3 /uL (1.8-7.7) Lymph # (Auto) 2.6 10^3/uL 10^3/ uL (0.8-4.8) [place] # (Auto) 0.4 10^3/uL 10^3/ uL (0.2-0.9) Eos # (Auto) 0.4 10^3/uL 10^3/ uL (0.0-0.8) Baso # (Auto) 0.1 10^3/uL 10^3/ uL (0.0-0.1) Nucleated RBC % (a uto) 0 % % Nucleated RBCs # 0.0 /100WBC /100W BC PT INR Sodium 134 mmol/L L mmol /L (136-145) Potassium 3.8 mmol/L mmol/L (3.5-5.1) Chloride 101 mmol/L mmol/L (98-107) Carbon Dioxide 22 mmol/L mmol/L (22-29) Anion Gap 14.8 (5-19) BUN 12 mg/dL mg/dL (6-20) Creatinine 0.7 mg/dL mg/dL (0.5-0.9) GFR Calculation 90.5 mL/min mL/mi n (90-130) Glucose 66 mg/dL mg/dL (65-115) Calculated Osmolal ity 276 mOsm/kg L mOs m/kg (285-295) Calcium 7.5 mg/dL L mg/dL (8.5-10.5) Total Bilirubin Direct Bilirubin AST ALT Alkaline Phosphata se Total Protein Albumin Globulin Salicylates < 0.3 mg/dL L mg/ dL (3-10) Urine Opiates Scre en Negative ng/mL ng /mL (Negative) Acetaminophen 18.4 ug/mL ug/mL (10-30) Ur Barbiturates Sc reen Negative ng/mL ng /mL (Negative) Ur Phencyclidine S crn Negative ng/mL ng /mL (Negative) Ur Amphetamines Sc reen Negative ng/mL ng /mL (Negative) U Benzodiazepines Scrn Positive ng/mL H ng/mL (Negative) Urine Cocaine Scre en Negative ng/mL ng /mL (Negative) U Marijuana (THC) Screen Positive ng/mL H ng/mL (Negative) 02/08/21 02/08/21 17:50 19:40 WBC RBC Hgb Hct MCV MCH MCHC RDW Plt Count MPV Neut % (Auto) Lymph % (Auto) [place] % (Auto) Eos % (Auto) Baso % (Auto) Neut # (Auto) Lymph # (Auto) [place] # (Auto) Eos # (Auto) Baso # (Auto) Nucleated RBC % (a uto) Nucleated RBCs # PT 13.20 SECONDS SEC ONDS (12.1-14.9) INR 0.97 (0.8-1.2) Sodium Potassium Chloride Carbon Dioxide Anion Gap BUN Creatinine GFR Calculation Glucose Calculated Osmolal ity Calcium Total Bilirubin 0.4 mg/dL mg/dL (0.15-1.2) Direct Bilirubin 0.20 mg/dL mg/dL (0.00-0.30) AST 14 U/L U/L (0-32) ALT 9 U/L U/L (0-33) Alkaline Phosphata se 78 IU/L IU/L (35-105) Total Protein 6.8 g/dL g/dL (6.6-8.7) Albumin 3.9 g/dL g/dL (3.5-5.2) Globulin 2.9 g/dL g/dL (1.3-4.6) Salicylates Urine Opiates Scre en Acetaminophen Ur Barbiturates Sc reen Ur Phencyclidine S crn Ur Amphetamines Sc reen U Benzodiazepines Scrn Urine Cocaine Scre en U Marijuana (THC) Screen Discharge Plan Discharge Patient Disposition: Admitted As Inpatient Admit Provider: Nash Greenberg Clinical Impression: Accidental drug overdose Condition: Stable Coding Level of Care Code ED Journal Box Inspector for Jalen Manriquez
[2021-02-08 19:59] LABS: INR 0.97 (0.8-1.2)
[2021-02-08 20:44] VITALS: RESP 20; TEMP 36.4; O2SAT 95
[2021-02-08 22:29] VITALS: BP 132/76; PULSE 55; RESP 17; TEMP 36.8; O2SAT 94
[2021-02-08 22:56] VITALS: BP 132/76; PULSE 55; RESP 17; TEMP 36.8
[2021-02-09] VITALS (7 sets, daily range): BP systolic 133–152; BP diastolic 79–83; PULSE 60–89; RESP 16–18; TEMP 36.3–37.2; O2SAT 92–97
--- NOTE | 2021-02-09 00:04 | PC.NURSE ---
Uses CPAP/ not with patient THis patient uses CPAP in home setting. Dull face mask with setting 13. Has not worn in one week d/t fear after seeing a recall. RT and notified.
--- NOTE | 2021-02-09 00:13 | PC.NURSE ---
Use of hearing aids at home. Patient did not bring in.
--- NOTE | 2021-02-09 01:02 | PC.NURSE ---
Patient arrived to NPU at 2100 from ED. [46]yo patient w/ hx of chronic back pain BIBA for ingestion of 28 tablets of 500mg extended release tylenol PM. On arrival, the patient is AAOx3 and cooperative with my evaluation. Patient has Hx of Bipolar with psychotic features. Reports continued AH but VH are new. AH are command in nature. Denies current SI. No HI. States that anxiety and depression have been increased for past 10 days. Reports daily THC use (no card) with use of Delta 8 a 2-3 times per week. Hx of meth abuse. Clean since 2014. Patient reports continued anxiety but is able to remain calm. Patient went to bed and rested calmly with eyes closed. RT here at this time with CPAP. 1:1 sitter present.
--- NOTE | 2021-02-09 01:36 | ECG_ITS ---
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
[2021-02-09] MEDS: ibuprofen 600 mg Tablet PO ×2 (06:17→12:50)
[2021-02-09 07:15] LABS: Acetaminophen < 5.0 ug/mL (10-30)
[2021-02-09] MEDS: OXcarbazepine 300 mg Tablet 600 MG PO ×2 (08:38→20:17)
[2021-02-09] MEDS: gabapentin 400 mg Capsule 800 MG PO ×3 (08:38→20:18)
[2021-02-09] MEDS: levothyroxine 25 mcg Tablet PO (08:39)
[2021-02-09] MEDS: risperiDONE 1 mg Tablet 0.5 MG PO (08:39)
[2021-02-09] MEDS: pantoprazole DR 40 mg Tablet PO (08:39)
[2021-02-09] MEDS: calcium carbonate 500 mg Chew Tablet PO (08:39)
[2021-02-09] MEDS: metoprolol tartrate 25 mg Tablet PO ×2 (08:39→20:18)
[2021-02-09] MEDS: meloxicam 7.5 mg tablet PO ×2 (08:39→20:18)
[2021-02-09] MEDS: benztropine 1 mg Tablet 0.5 MG PO ×2 (08:40→20:18)
[2021-02-09] MEDS: calcitriol 0.25 mcg Capsule 0.5 MCG PO ×2 (09:27→22:08)
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
--- NOTE | 2021-02-09 13:01 | NPU.GN ---
[facility] Group Topic:Coping Kills Checklist General Mood of Group: Darlin did not attend group today. She wanted to sleep.
[2021-02-09] MEDS: tizanidine 4 mg Tablet PO (18:17)
--- NOTE | 2021-02-09 18:18 | PC.NURSE ---
PRN ZANAFLEX 4 MG GIVEN PO PER PT C/O MUSCLE SPASMS WILL CONT TO MONITOR
--- NOTE | 2021-02-09 20:00 | PC.NURSE ---
Upon assessment patient lying in bed. Patient alert/oriented x4. Pt rates depression 6, anxiety 8. She denies any SI/HI, hallucinations. She does c/o lower back pain- chronic 12/30. She states she did not attend group earlier in the day, she did not give a reason why. patient isolates to her room and tends to ask for assistance from staff with small tasks. Will continue monitor and follow plan of care. Q 15 min safety checks per protocol. Patient will be 1:1 when wearing CPAP at bedtime.
[2021-02-09] MEDS: risperiDONE 2 mg Tablet 3 MG PO (20:18)
--- NOTE | 2021-02-09 23:54 | PC.NURSE ---
Patient requested her CPAP be removed for awhile, states she is having trouble sleeping with it on. CPAP removed per pt request. Will monitor patient closely.
[2021-02-10] VITALS (7 sets, daily range): BP systolic 114–130; BP diastolic 75–89; PULSE 59–125; RESP 14–22; TEMP 36.6–36.9; O2SAT 93–98
--- NOTE | 2021-02-10 05:36 | PC.NURSE ---
Patient slept through the night without her CPAP without any complaints or difficulty.
[2021-02-10] MEDS: albuterol 8 gm MDI 2 PUFF INHALATION ×3 (09:05→20:00)
[2021-02-10] MEDS: metoprolol tartrate 25 mg Tablet PO ×2 (09:14→21:28)
[2021-02-10] MEDS: calcitriol 0.25 mcg Capsule 0.5 MCG PO ×2 (09:14→21:33)
[2021-02-10] MEDS: gabapentin 400 mg Capsule 800 MG PO ×3 (09:14→21:27)
[2021-02-10] MEDS: pantoprazole DR 40 mg Tablet PO (09:14)
[2021-02-10] MEDS: calcium carbonate 500 mg Chew Tablet PO (09:15)
[2021-02-10] MEDS: ibuprofen 600 mg Tablet PO ×2 (09:15→15:27)
[2021-02-10] MEDS: risperiDONE 1 mg Tablet 0.5 MG PO (09:15)
[2021-02-10] MEDS: levothyroxine 25 mcg Tablet PO (09:15)
[2021-02-10] MEDS: benztropine 1 mg Tablet 0.5 MG PO ×2 (09:15→21:27)
[2021-02-10] MEDS: OXcarbazepine 300 mg Tablet 600 MG PO ×2 (09:16→21:27)
[2021-02-10] MEDS: tizanidine 4 mg Tablet PO (09:16)
[2021-02-10] MEDS: meloxicam 7.5 mg tablet PO ×2 (09:20→21:28)
--- NOTE | 2021-02-10 13:27 | P.PN_ITS ---
Subjective NPU Subjective: Interval history: I met with the treatment team to discuss the patient's progress. He says she was upset yesterday that we did not make any medication changes, even though she and I had agreed to this plan. She had said that she feels safe here and wanted to see if her symptoms improved by being in this environment. I met with the patient in person. She has a completely different memory of yesterday's conversation and feels that she is being neglected. She says she is used to just calling her doctor's office and being able to tell the nurse that she is having symptoms and a medication change is made. We talked about what she is most worried about, which is the fact that she has started having visual illusions/hallucinations. Sometimes she sees things out of the corner of her eye, such as a hawk sitting on a post, and when she looks again, it is not there. Sometimes she sees things more directly, such as seeing a child who is been in an accident. She says she has not had this type of symptom before. We discussed increasing the Risperdal, and she is okay with this plan. Mental Status Exam 2 MSE Comments: I met with the patient in the day room. She was agitated and upset, but cooperative, interactive, and made fair eye contact. Some psychomotor agitation Speech is at a regular rate and rhythm, normal volume, good articulation, mildly pressured Alert, oriented to person, place, time, and situation Attention and concentration were intact to exam Memory is adequate for the interview Mood is depressed. Affect is tearful. Thought process is logical and goal-directed. Thought content: She describes both auditory and visual hallucinations, as well as some suicidal ideation. No homicidal ideation. No delusions or paranoia are noted. Insight and judgment are fair. Impulse control is fair as well. Vitals/I&O/Wt Last Vital Signs Temp 98.5 F 02/10/21 06:00 Pulse 95 02/10/21 09:08 Resp 18 02/10/21 09:08 BP 121/89 02/10/21 06:00 Pulse Ox 96 02/10/21 09:08 Weight last 48 hrs Weight 140.614 kg Data NPU : 02/08/21 17:50 02/08/21 17:50 A&P Assessment and plan (1) Tylenol overdose: Status: Acute (2) Accidental drug overdose: Status: Acute (3) Bipolar I, most recent episode mixed, severe with psychotic behavior: Status: Acute (4) Borderline personality disorder: Status: Chronic (5) Chronic post-traumatic stress disorder: Status: Chronic (6) Cannabis use disorder, moderate, dependence: Status: Chronic (7) Polysubstance abuse: Status: Acute (8) COPD (chronic obstructive pulmonary disease): Status: Acute (9) Morbidly obese: Status: Acute (10) QUOC (obstructive sleep apnea): Status: Acute (11) Hypothyroidism: Status: Acute (12) Hypertension: Status: Acute Additional A&P Information This is a 46 year old female with a history of morbid obesity, chronic back pain, and command hallucinations who admitted for an intentional overdose of Tylenol. It is not clear if she intended to kill herself with the Tylenol, but it is clear that she knew she was taking too much and did not care if it killed her. Her willingness and desire to is related to chronic pain and feelings of depression and hopelessness. RECOMMENDATION AND PLAN: 1. Continue current medication. Increase Risperdal to 1.5 mg in the morning and 3 mg at bedtime, up from 0.5 mg in the morning and 3 mg at bedtime. We are addressing visual hallucinations. 2. Continue every 15 minute checks for safety. 3. Encourage individual, group and milieu therapies. 4. Encourage sober living treatment after discharge at the highest level of care to which he is willing to commit. Involuntary Hold Information 96 Hour Hold: 96 Hour Involuntary Admission: No Attestations NPU Medical Necessity Statement*: Psychiatric hospitalization is medically necessary to prevent access to lethal means, to reevaluate medication, and to coordinate a safe discharge. Likely length of stay is 2-4 days. Coding Level of Care Code Acute Adoption Services Manager for Jalen Manriquez Diagnoses Tylenol overdose T39.1X1A Accidental drug overdose T50.901A Bipolar I, most recent episode mixed, severe with psychotic behavior F31.64 Borderline personality disorder F60.3 Chronic post-traumatic stress disorder F43.12 Cannabis use disorder, moderate, dependence F12.20 Polysubstance abuse F19.10 COPD (chronic obstructive pulmonary disease) J44.9 Morbidly obese E66.01 QUOC (obstructive sleep apnea) G47.33 Hypothyroidism E03.9 Hypertension I10
[2021-02-10] MEDS: OLANZapine 5 mg ODT PO ×2 (15:36→19:47)
--- NOTE | 2021-02-10 15:37 | PC.NURSE ---
med refusal Pt does not want to take her Risperidone anymore and wishes to be taken off of it. Pt did not take her afternoon dose.
[2021-02-10] MEDS: hyDROXYzine 25 mg Capsule 50 MG PO (19:46)
--- NOTE | 2021-02-10 19:49 | PC.NURSE ---
PATIENT WAS UPSET AT SHIFT CHANGE BECAUSE SHE DID NOT FEEL THAT SHE WAS ATTENDED TO IN A TIMELY ENOUGH MANOR. SHE HAD REQUESTED TO SPEAK WITH SOME ONE BEFORE REPORT. SHE DISCUSSED WITH ME HER THOUGHT OF SUICIDE AND HER HIGH LEVEL OF ANXIETY. SHE RECEIVED 50MG VISTARIL PO AND 5MG ZYPREXA. PATIENT CONTINUES TO C/O A.H. AND HIGH LEVEL OF ANXIETY. PLAN TO GIVE 5MG HALDOL AT THIS TIME.
[2021-02-10] MEDS: haloperidol 5 mg Tablet PO (20:59)
[2021-02-10] MEDS: trazodone 150 mg Tablet 300 MG PO (21:33)
[2021-02-11 06:00] VITALS: BP 132/84; PULSE 87; RESP 16; TEMP 36.7; O2SAT 96
[2021-02-11] MEDS: ibuprofen 600 mg Tablet PO ×2 (06:07→14:40)
[2021-02-11 09:10] VITALS: PULSE 87; RESP 16; O2SAT 96
[2021-02-11] MEDS: albuterol 8 gm MDI 2 PUFF INHALATION (09:10)
[2021-02-11] MEDS: metoprolol tartrate 25 mg Tablet PO (09:56)
[2021-02-11] MEDS: calcitriol 0.25 mcg Capsule 0.5 MCG PO (09:56)
[2021-02-11] MEDS: pantoprazole DR 40 mg Tablet PO (09:57)
[2021-02-11] MEDS: meloxicam 7.5 mg tablet PO (09:57)
[2021-02-11] MEDS: gabapentin 400 mg Capsule 800 MG PO ×2 (09:57→14:41)
[2021-02-11] MEDS: benztropine 1 mg Tablet 0.5 MG PO (09:57)
[2021-02-11] MEDS: levothyroxine 25 mcg Tablet PO (09:57)
[2021-02-11] MEDS: calcium carbonate 500 mg Chew Tablet PO (09:57)
[2021-02-11] MEDS: tizanidine 4 mg Tablet PO (09:58)
[2021-02-11] MEDS: OXcarbazepine 300 mg Tablet 600 MG PO (09:58)
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
[2021-02-11 16:08] VITALS: BP 132/84; PULSE 87; RESP 16; TEMP 36.7; O2SAT 96
--- NOTE | 2021-02-11 16:20 | PC.NURSE ---
Discharge - patient discharged from unit at 1617; asked patient once again if she felt safe leaving and she stated she did. Discharge paperworks signed.
== END 2021-02-11 16:17 | disposition home or self-care (01) | DRG 918 ==
LOC: ER 19:37 → NP 21:02
PROVIDERS: Admitting Provider Psychiatry & Neurology Psychiatry; Emergency Provider Emergency Medicine; PCP Internal Medicine; Visit Provider Psychiatry & Neurology Child & Adolescent Psychiatry
DX: T39.1X2A Poisoning by 4-Aminophenol derivatives, intentional self-harm, initial encounter (principal); F31.5 Bipolar disorder, current episode depressed, severe, with psychotic features; Z68.43 Body mass index [BMI] 50.0-59.9, adult; F60.3 Borderline personality disorder; F43.12 Post-traumatic stress disorder, chronic; F12.20 Cannabis dependence, uncomplicated; F19.10 Other psychoactive substance abuse, uncomplicated; E66.01 Morbid (severe) obesity due to excess calories; J44.9 Chronic obstructive pulmonary disease, unspecified; E03.9 Hypothyroidism, unspecified; G47.33 Obstructive sleep apnea (adult) (pediatric); I10 Essential (primary) hypertension; G89.29 Other chronic pain; M51.26 Other intervertebral disc displacement, lumbar region; Z62.810 Personal history of physical and sexual abuse in childhood; Z81.8 Family history of other mental and behavioral disorders; Z98.84 Bariatric surgery status
CPT/HCPCS: 36415; 80048; 80076; 80306; 80307; 85025; 85610; 93005; 94640; 94660; 97150; 97165; 99285; J3535

== ENCOUNTER → 2021-02-14 09:30 | Outpatient (BNVA) | payer MEDICARE, MEDICAID, SELFPAY ==
[2021-01-31 15:41] VITALS: BP 126/82; BMI 52.4
== END ==
PROVIDERS: PCP Internal Medicine; Visit Provider Anesthesiology Pain Medicine
DX: M47.816 Spondylosis without myelopathy or radiculopathy, lumbar region (principal); M51.16 Intervertebral disc disorders with radiculopathy, lumbar region; M79.604 Pain in right leg
CPT/HCPCS: 99212

== ENCOUNTER → 2021-02-17 09:08 | Outpatient (BNVA) | payer MEDICARE, MEDICAID, SELFPAY ==
[2021-01-31 15:41] VITALS: BP 126/82; BMI 52.4
== END ==
PROVIDERS: PCP Internal Medicine; Visit Provider Nurse Practitioner Psychiatric/Mental Health
DX: F31.64 Bipolar disorder, current episode mixed, severe, with psychotic features (principal); F43.12 Post-traumatic stress disorder, chronic; F60.3 Borderline personality disorder; F12.20 Cannabis dependence, uncomplicated; Z79.899 Other long term (current) drug therapy
CPT/HCPCS: 99214

== ENCOUNTER → 2021-03-02 12:42 | Outpatient (BNVA) | payer MEDICARE, MEDICAID, SELFPAY ==
[2021-01-31 15:41] VITALS: BP 126/82; BMI 52.4
== END ==
PROVIDERS: PCP Internal Medicine; Visit Provider Nurse Practitioner Psychiatric/Mental Health
DX: F31.64 Bipolar disorder, current episode mixed, severe, with psychotic features (principal); F43.12 Post-traumatic stress disorder, chronic; F60.3 Borderline personality disorder; F12.20 Cannabis dependence, uncomplicated; Z79.899 Other long term (current) drug therapy
CPT/HCPCS: 99214

== ENCOUNTER → 2021-03-08 14:16 | Outpatient (BNVA) | payer MEDICARE, MEDICAID, SELFPAY ==
[2021-01-31 15:41] VITALS: BP 126/82; BMI 52.4
== END ==
PROVIDERS: PCP Internal Medicine; Visit Provider Nurse Practitioner Psychiatric/Mental Health
DX: F31.64 Bipolar disorder, current episode mixed, severe, with psychotic features (principal); F43.12 Post-traumatic stress disorder, chronic; F60.3 Borderline personality disorder; Z79.899 Other long term (current) drug therapy; F12.20 Cannabis dependence, uncomplicated
CPT/HCPCS: 99214

== ENCOUNTER 2021-03-28 17:25 | Outpatient (CLI) | payer MEDICARE, MEDICAID, SELFPAY ==
[2021-01-31 15:41] VITALS: BP 126/82; BMI 52.4
--- NOTE | 2021-03-28 17:34 | XRR_ITS ---
PROCEDURE INFORMATION: Exam: XR Skull Exam date and time: 03/28/2021 5:34 PM Age: 46 years old Clinical indication: Patient HX: Scalp pain, posterior skull x today w/ lump TECHNIQUE: Imaging protocol: XR of the skull. Views: Minimum of 4 views. COMPARISON: CR Cervical Spine AP/Lat* [id number] 04/17/2017 6:03 PM FINDINGS: Sinuses: Well aerated. No opacification. Bones/joints: No fracture. Soft tissues: Unremarkable. XR/XR skull <4V [id number] IMPRESSION: Unremarkable.
== END 2021-03-28 17:26 | disposition home or self-care (01) ==
PROVIDERS: PCP Internal Medicine; Visit Provider Nurse Practitioner Family
DX: R52 Pain, unspecified (principal)
CPT/HCPCS: 70250

== ENCOUNTER → 2021-03-29 08:06 | Outpatient (BNVA) | payer MEDICARE, MEDICAID, SELFPAY ==
[2021-01-31 15:41] VITALS: BP 126/82; BMI 52.4
== END ==
PROVIDERS: PCP Internal Medicine; Visit Provider Nurse Practitioner Psychiatric/Mental Health
DX: F31.64 Bipolar disorder, current episode mixed, severe, with psychotic features (principal); F43.12 Post-traumatic stress disorder, chronic; F60.3 Borderline personality disorder; F12.20 Cannabis dependence, uncomplicated; Z79.899 Other long term (current) drug therapy
CPT/HCPCS: 99214

== ENCOUNTER 2021-04-06 09:03 | Outpatient (CLI) | payer MEDICARE, MEDICAID, SELFPAY ==
[2021-01-31 15:41] VITALS: BP 126/82; BMI 52.4
--- NOTE | 2021-04-06 09:13 | XR_ITS ---
WS: [id number] XR chest 2V* [id number] REASON FOR EXAM: WHEEZE/COUGH FINDINGS: The chest is unchanged compared to 07/31/2019. The heart and mediastinum are within normal limits. Calcified granulomatous changes in both hemithoraces. No acute pulmonary parenchymal or pleural abnormality. Moderate degenerative spondylosis in the mid and lower thoracic spine. XR/XR chest 2V* [id number] IMPRESSION: No acute chest abnormality.
== END 2021-04-06 09:04 | disposition home or self-care (01) ==
LOC: RAD 09:09
PROVIDERS: PCP Internal Medicine; Visit Provider Internal Medicine
DX: R06.2 Wheezing (principal); R05.9 Cough, unspecified
CPT/HCPCS: 71046

== ENCOUNTER → 2021-04-26 11:15 | Outpatient (BNVA) | payer MEDICARE, MEDICAID, SELFPAY ==
[2021-01-31 15:41] VITALS: BP 126/82; BMI 52.4
== END ==
PROVIDERS: PCP Internal Medicine; Visit Provider Nurse Practitioner Psychiatric/Mental Health
DX: F60.3 Borderline personality disorder (principal); F31.64 Bipolar disorder, current episode mixed, severe, with psychotic features; F43.12 Post-traumatic stress disorder, chronic; F12.20 Cannabis dependence, uncomplicated; Z79.899 Other long term (current) drug therapy
CPT/HCPCS: 80053; 99214

== ENCOUNTER → 2021-05-09 08:53 | Outpatient (BNVA) | payer MEDICARE, MEDICAID, SELFPAY ==
[2021-01-31 15:41] VITALS: BP 126/82; BMI 52.4
== END ==
PROVIDERS: PCP Internal Medicine; Visit Provider Nurse Practitioner Psychiatric/Mental Health
DX: Z79.899 Other long term (current) drug therapy (principal)
CPT/HCPCS: 80053; 80178

== ENCOUNTER → 2021-05-30 08:05 | Outpatient (BNVA) | payer MEDICARE, MEDICAID, SELFPAY ==
[2021-01-31 15:41] VITALS: BP 126/82; BMI 52.4
== END ==
PROVIDERS: PCP Internal Medicine; Visit Provider Nurse Practitioner Psychiatric/Mental Health
DX: F31.64 Bipolar disorder, current episode mixed, severe, with psychotic features (principal); F43.12 Post-traumatic stress disorder, chronic; F60.3 Borderline personality disorder; F12.20 Cannabis dependence, uncomplicated; Z79.899 Other long term (current) drug therapy
CPT/HCPCS: 99214

== ENCOUNTER 2021-06-10 19:40 | Emergency (ER) | payer MEDICARE, MEDICAID, SELFPAY ==
[2021-01-31 15:41] VITALS: BP 126/82; BMI 52.4
[2021-06-10 19:47] VITALS: BP 129/89; PULSE 121; RESP 18; TEMP 37.1; O2SAT 95; BMI 50.9
--- NOTE | 2021-06-10 19:57 | W.ED.GENADLT ---
HPI - General Adult General: Chief complaint: General Medical Stated complaint: Bite Left Hand Time Seen by Provider: 06/10/21 19:44 Source: patient Mode of arrival: ambulatory Limitations: no limitations History of Present Illness: 46-year-old female that has a paronychia to her left middle finger. She has had pain to that finger over the last 2 to 3 days she does not member any injuries. She states the pain is 6 out of 10 worse with movement improved with rest. Associated symptoms: Deny chest pain, dyspnea, headache(s), nausea, rash or vomiting Review of Systems Const: Denies: fever(s), chills, body aches or change in appetite Eyes: Denies: blurry vision or eye discomfort ENMT: Denies: throat pain or dental pain Card: Denies: chest pain Resp: Denies: dyspnea GI: Denies: abdominal pain, nausea, vomiting or diarrhea : Denies: dysuria Musc: Reports: extremity pain Skin/Breast: Denies: rash Neuro: Denies: headache(s) Psych: Denies: depression Hugo/Lymph: Denies: easy bruising All/Imm: Denies: urticaria PFSH ED PFSH: Medical History Anemia Bipolar I, most recent episode mixed, severe with psychotic behavior Borderline personality disorder Cannabis use disorder, moderate, dependence Chronic post-traumatic stress disorder COPD (chronic obstructive pulmonary disease) Facet arthropathy, lumbar Hypertension Hypothyroidism Lumbar disc disease with radiculopathy Onychodystrophy QUOC (obstructive sleep apnea) Plantar porokeratosis, acquired Polysubstance abuse Psychiatric care Right upper quadrant abdominal pain Vomiting Surgical History H/O esophagogastroduodenoscopy (08/23/20) 2000: With dilation after bypass 2020: normal , bypass changes History of appendectomy History of arthroscopy of both knees 2004 History of cholecystectomy History of colonoscopy (08/23/20) 2000 2020: normal History of gastric bypass 2000 Family History Mother Hypertension Cancer Father Hypertension Diabetes Cancer Brother Hypertension Diabetes Sister Diabetes Other Borderline personality disorder Hyperparathyroidism Psychiatric illness Social History Smoking and tobacco status: former smoker Alcohol intake: never Desire information about substance/drug rehabilitation?: No Household members: significant other Housing: House Marital status: Legally Current gender identity: Female Female Reproductive History: Date of last menstrual period: 02/03/21 Physical Exam Const: COMMON NORMALS: no acute distress, patient oriented x3 and healthy appearing HENMT: COMMON NORMALS: normocephalic and atraumatic HEAD & SCALP: normocephalic and atraumatic Eye: COMMON NORMALS: Equal, round and reactive pupils present and EOMs intact bilaterally PUPIL: Yes Equal, round and reactive pupils present Neck/C-Spine: COMMON NORMALS: full ROM and supple Chest: COMMONS NORMALS: normal inspection of the chest and normal palpation of entire chest wall Resp: COMMON NORMALS: normal respiratory effort, No retractions, No use of accessory muscles and clear to auscultation bilaterally AUSCULTATION: clear to auscultation bilaterally Cardio: COMMON NORMALS: regular rate, regular rhythm and No murmurs present (Cardio) RATE: regular rate RHYTHM: regular rhythm GI: COMMON NORMALS: Normal to inspection, nondistended, normoactive bowel sounds present, Soft to palpation, non-tender and no masses PALPATION: Yes Soft to palpation Extremity: COMMON NORMALS: full ROM NARRATIVE EXTREMITY EXAM: Paronychia to distal left middle finger Neuro: COMMON NORMALS: patient oriented x3, moves all extremities and no focal motor deficits Psych: COMMON NORMALS: mental status grossly normal, Normal thought process present and cooperative THOUGHT PROCESS: Normal thought process present Skin: COMMON NORMALS: no rashes or lesions noted and no wounds GENERAL SKIN EXAM: no rashes or lesions noted Procedures Abscess I/D Site: hand Side (if applicable): left Technique: incised with #11 blade Packing used?: none Nerve Block Nerve Block 1: Time out performed: Yes Local Anesthetic: bupivacaine 0.5% Amount of anesthesia used (mL): 10 Nerve Blocks: digital (left middle finger ring) Procedure Successful: Yes Patient Tolerated Procedure: well Complications: none Course Vital Signs: Vital signs: Vital Signs Temperature 98.7 F 06/10/21 19:47 Pulse Rate 121 H 06/10/21 19:47 Respiratory Rate 18 06/10/21 19:47 Blood Pressure 129/89 06/10/21 19:47 Pulse Oximetry 95 06/10/21 19:47 MDM - General Adult Medical Decision Making Patient presents here with a paronychia to the left middle finger paronychia was drained successfully we will place her on Bactrim at home she is to follow-up with PCP and return if worsening Discharge Plan Discharge Patient Disposition: Home Clinical Impression: Paronychia Condition: Stable Prescriptions: New Bactrim DS 800-160 mg tablet 1 tab PO BID 10 Days Qty: 20 0RF Naprosyn 500 mg tablet 500 mg PO BID PRN (Reason: pain) Qty: 20 0RF No Action trazodone 150 mg tablet 300 mg PO BEDTIME PRN (Reason: sleep) Qty: 60 4RF Rx Instructions: Take two tablets at bedtime as needed for sleep cyproheptadine 4 mg tablet 8 mg PO .bedtime Qty: 60 4RF Rx Instructions: Take two tablets at bedtime buspirone 10 mg tablet 10 mg PO BID Qty: 60 3RF Rx Instructions: Take one tablet twice per day benztropine 0.5 mg tablet 0.5 mg PO BID Qty: 30 3RF Rx Instructions: Take one tablet twice per day paliperidone [Invega] 9 mg tablet extended release 24hr 9 mg PO .morning Qty: 30 1RF Rx Instructions: Take one tablet every morning lithium carbonate 150 mg capsule 150 mg PO BID@08,16 Qty: 60 3RF Rx Instructions: Take one capsule twice per day, 8 am and 4 pm metoprolol tartrate 25 mg tablet 25 mg PO BID 0RF terbinafine HCl 250 mg tablet 250 mg PO DAILY 30 Days Qty: 30 2RF Ozempic 0.25 mg or 0.5 mg(2 mg/1.5 mL) pen injector 0.25 mg SUBCUT .weekly 0RF diclofenac sodium 1 % gel See Rx Instructions .ROUTE .COMPLEX Qty: 100 3RF Dose Instruction: APPLY 2GRAM TOPICALLY 4X/DAY TO SINGLE ELBOW, WRIST/HAND INCLUDING PALM/FINGERS/BACK OF HAND Rx Instructions: APPLY 2GRAM TOPICALLY 4X/DAY TO SINGLE ELBOW, WRIST/HAND INCLUDING PALM/FINGERS/BACK OF HAND tizanidine 4 mg tablet 4 mg PO Q8H PRN (Reason: muscle spasticity) Qty: 20 0RF gabapentin 800 mg tablet 800 mg PO TID 0RF Rx Instructions: PT STATES SHE IS SUPPOSED TO TAKE 1 TAB TID. albuterol sulfate 90 mcg/actuation HFA aerosol inhaler 2 puff INHALATION Q4H PRN (Reason: Shortness Of Breath) 0RF calcitriol 0.25 mcg capsule 0.5 mcg PO BID 0RF rizatriptan 10 mg Tablet 10 mg PO DAILY PRN (Reason: Migraine Headache) 0RF Rx Instructions: 10 mg orally ;TAKE 1 TAB PRN FOR ACUTE MIGRAINE AUGUST 1 TIME. levothyroxine 25 mcg Tablet 25 mcg PO DAILY 0RF meloxicam 7.5 mg Tablet 7.5 mg PO BID 0RF calcium carbonate [Calcium 500] 500 mg calcium (1,250 mg) Tablet 500 mg PO DAILY 0RF pantoprazole 40 mg Tablet,Delayed Release (Dr/Ec) 40 mg PO DAILY 0RF Aimovig Autoinjector 70 mg/mL auto-injector 140 mg SUBCUT Q30D 0RF Rx Instructions: 3rd of the month Discharge Orders: Discharge ED (Routine); Ordered 06/10/21 Ordered By: Brian Man Referrals: Elizabeth Lee MD [Primary Care Provider] - 1-3 days Discharge Diet: Advance as tolerated Discharge Activity: Resume usual activity Patient Instructions: Paronychia (ED) Coding Level of Care Code ED Accounts Payable Specialist for Tamig Fwd Exam Comprehensive
== END 2021-06-10 20:19 | disposition home or self-care (01) ==
PROVIDERS: Emergency Provider Emergency Medicine; PCP Internal Medicine
DX: L03.012 Cellulitis of left finger (principal); I10 Essential (primary) hypertension; J44.9 Chronic obstructive pulmonary disease, unspecified; Z87.891 Personal history of nicotine dependence
CPT/HCPCS: 26010; 99282; J3490

== ENCOUNTER → 2021-06-16 07:29 | Outpatient (BNVA) | payer MEDICARE, MEDICAID, SELFPAY ==
[2021-01-31 15:41] VITALS: BP 126/82; BMI 52.4
== END ==
PROVIDERS: PCP Internal Medicine; Visit Provider Nurse Practitioner Psychiatric/Mental Health
DX: Z79.899 Other long term (current) drug therapy (principal); F31.64 Bipolar disorder, current episode mixed, severe, with psychotic features; F43.12 Post-traumatic stress disorder, chronic; F60.3 Borderline personality disorder; F12.20 Cannabis dependence, uncomplicated
CPT/HCPCS: 99214

== ENCOUNTER 2021-07-18 07:46 | Outpatient (CLI) | payer MEDICARE, MEDICAID, SELFPAY ==
[2021-01-31 15:41] VITALS: BP 126/82; BMI 52.4
== END 2021-07-18 07:47 | disposition home or self-care (01) ==
PROVIDERS: PCP Internal Medicine; Visit Provider Internal Medicine
DX: F31.64 Bipolar disorder, current episode mixed, severe, with psychotic features (principal); F43.12 Post-traumatic stress disorder, chronic; F60.3 Borderline personality disorder; F12.20 Cannabis dependence, uncomplicated; Z79.899 Other long term (current) drug therapy
CPT/HCPCS: 99215

== ENCOUNTER 2021-07-18 09:40 | Inpatient (IN) | payer MEDICARE, MEDICAID, SELFPAY ==
[2021-01-31 15:41] VITALS: BP 126/82; BMI 52.4
[2021-07-18 09:47] VITALS: BP 135/99; PULSE 94; RESP 20; TEMP 37.2; O2SAT 94; BMI 50.3
[2021-07-18 10:07] LABS: Basophils # 0.1 10^3/uL (0.0-0.1); Basophils % 0.9 %; Eosinophils # 0.2 10^3/uL (0.0-0.8); Eosinophils % 1.9 %; Hematocrit 43.1 % (37.0-47.0); Hemoglobin 14.3 g/dL (11.5-15.3); Lymphocytes # 2.6 10^3/uL (0.8-4.8); Lymphocytes % 28.8 %; Mean Corpuscular HGB Conc 33.2 g/dL (30.0-36.0); Mean Corpuscular Hemoglobin 32.5 pg (28.0-34.0); Mean Platelet Volume 10.8 fL (7.4-10.4); Monocytes # 0.5 10^3/uL (0.2-0.9); Monocytes % 5.4 %; Neutrophils # 5.66 10^3/uL (1.8-7.7); Neutrophils % 62.8 %; Nucleated Red Blood Cells % 0 %; Platelet Count 301 10^3/cmm (130-400); Red Cell Distribution Width 12.2 % (12.1-15.1)
[2021-07-18] MEDS: OLANZapine 10 mg TABLET PO (10:10)
--- NOTE | 2021-07-18 10:10 | W.ED.PSYCHS ---
HPI - Psych General: Chief Complaint: Psychiatric Symptoms Stated Complaint: SI WITH PLAN Time Seen by Provider: 07/18/21 09:43 Source: patient Mode of arrival: EMS Limitations: no limitations History of Present Illness: 46-year-old female presents emergency room complaining of suicidal ideation. States it began the last couple of days. She has been having auditory hallucinations with voices telling her to kill herself or harm herself. She been off of all of her medications including lithium for the last 3 weeks. Her plan was to take overdose of her medications. MD complaint: suicidal ideation Duration: constant History of same: Yes Relieving factors: none Exacerbating factors: none Context: not taking psychiatric medications Associated psychiatric symptoms: none Associated symptoms: Reports auditory hallucinations, depression and suicidal ideation; Deny visual hallucinations or homicidal ideation Treatments prior to arrival: none If self harm: admits thoughts of self harm and has plan Review of Systems Const: Denies: fever(s), chills, body aches, change in appetite, fatigue or malaise ENMT: Denies: throat pain, ear or mastoid pain, nasal discharge or nasal congestion Card: Denies: chest pain, edema, dyspnea on exertion or orthopnea Resp: Denies: dyspnea, productive cough or non-productive cough GI: Denies: abdominal pain, nausea, vomiting, hematemesis, coffee ground emesis, diarrhea, constipation, bloating, hematochezia or melena : Denies: flank pain, difficulty voiding, dysuria, urinary frequency or urinary urgency Skin/Breast: Denies: rash or pruritus Psych: Reports: anxiety, depression, mood swings, auditory hallucinations and suicidal ideation; Denies: visual hallucinations or homicidal ideation [facility] ED PFSH: Medical History Anemia Bipolar I, most recent episode mixed, severe with psychotic behavior Borderline personality disorder Cannabis use disorder, moderate, dependence Chronic post-traumatic stress disorder COPD (chronic obstructive pulmonary disease) Facet arthropathy, lumbar Hypertension Hypothyroidism Lumbar disc disease with radiculopathy Onychodystrophy QUOC (obstructive sleep apnea) Plantar porokeratosis, acquired Polysubstance abuse Psychiatric care Right upper quadrant abdominal pain Vomiting Surgical History H/O esophagogastroduodenoscopy (08/23/20) 2001: With dilation after bypass 2020: normal , bypass changes History of appendectomy History of arthroscopy of both knees 2004 History of cholecystectomy History of colonoscopy (08/23/20) 2000 2020: normal History of gastric bypass 2000 Family History Mother Hypertension Cancer Father Hypertension Diabetes Cancer Brother Hypertension Diabetes Sister Diabetes Other Borderline personality disorder Hyperparathyroidism Psychiatric illness Social History Smoking and tobacco status: former smoker Alcohol intake: never Desire information about substance/drug rehabilitation?: No Household members: significant other Housing: House Marital status: Legally Current gender identity: Female Female Reproductive History: Date of last menstrual period: 02/03/21 Physical Exam Const: COMMON NORMALS: no acute distress GENERAL APPEARANCE: cooperative and comfortable ORIENTATION/CONSCIOUSNESS: Yes awake, Yes oriented to person, Yes oriented to place and Yes oriented to time HENMT: COMMON NORMALS: normocephalic, atraumatic and hearing grossly normal bilaterally HEAD & SCALP: normocephalic and atraumatic Neck/C-Spine: COMMON NORMALS: no JVD Resp: COMMON NORMALS: normal respiratory effort, No retractions, No use of accessory muscles and clear to auscultation bilaterally AUSCULTATION: clear to auscultation bilaterally Cardio: COMMON NORMALS: no JVD, regular rate, regular rhythm and No murmurs present (Cardio) RATE: regular rate RHYTHM: regular rhythm Extremity: COMMON NORMALS: normal to inspection, capillary refill normal, no clubbing, cyanosis or edema, no calf tenderness and no pedal edema Neuro: SENSORIUM/ORIENTATION: Yes oriented to person, Yes oriented to place and Yes oriented to time Skin: COMMON NORMALS: no rashes or lesions noted GENERAL SKIN EXAM: no rashes or lesions noted Course Vital Signs: Vital signs: Vital Signs Temperature 99.0 F 07/18/21 09:47 Pulse Rate 94 07/18/21 09:47 Respiratory Rate 20 H 07/18/21 09:47 Blood Pressure 135/99 07/18/21 09:47 Pulse Oximetry 94 07/18/21 09:47 MDM - Psych Medical Decision Making Acute suicidal ideation with psychosis due to noncompliance with medications. Patient has a plan for does not act on it. Will discuss with psychiatry and admit. Medical Records I reviewed the patient's medical records. Lab Data I reviewed the patient's lab results. : 07/18/21 10:00 07/18/21 10:00 Laboratory Results WBC 9.0 10^3/uL (4.0-10.0) 07/18/21 10:00 RBC 4.40 10^6/uL (4.1-5.3) 07/18/21 10:00 Hgb 14.3 g/dL (11.5-15.3) 07/18/21 10:00 Hct 43.1 % (37.0-47.0) 07/18/21 10:00 MCV 98.0 fl (81-99) 07/18/21 10:00 MCH 32.5 pg (28.0-34.0) 07/18/21 10:00 MCHC 33.2 g/dL (30.0-36.0) 07/18/21 10:00 RDW 12.2 % (12.1-15.1) 07/18/21 10:00 Plt Count 301 10^3/cmm (130-400) 07/18/21 10:00 MPV 10.8 fL (7.4-10.4) H 07/18/21 10:00 Neut % (Auto) 62.8 % 07/18/21 10:00 Lymph % (Auto) 28.8 % 07/18/21 10:00 [place] % (Auto) 5.4 % 07/18/21 10:00 Eos % (Auto) 1.9 % 07/18/21 10:00 Baso % (Auto) 0.9 % 07/18/21 10:00 Neut # (Auto) 5.66 10^3/uL (1.8-7.7) 07/18/21 10:00 Lymph # (Auto) 2.6 10^3/uL (0.8-4.8) 07/18/21 10:00 [place] # (Auto) 0.5 10^3/uL (0.2-0.9) 07/18/21 10:00 Eos # (Auto) 0.2 10^3/uL (0.0-0.8) 07/18/21 10:00 Baso # (Auto) 0.1 10^3/uL (0.0-0.1) 07/18/21 10:00 Nucleated RBC % (auto) 0 % 07/18/21 10:00 Nucleated RBCs # 0.0 /100WBC 07/18/21 10:00 Sodium 138 mmol/L (136-145) 07/18/21 10:00 Potassium 3.6 mmol/L (3.5-5.1) 07/18/21 10:00 Chloride 103 mmol/L (98-107) 07/18/21 10:00 Carbon Dioxide 22 mmol/L (22-29) 07/18/21 10:00 Anion Gap 16.6 (5-19) 07/18/21 10:00 BUN 10 mg/dL (6-20) 07/18/21 10:00 Creatinine 0.7 mg/dL (0.5-0.9) 07/18/21 10:00 GFR Calculation 90.5 mL/min (90-130) 07/18/21 10:00 Glucose 97 mg/dL (65-115) 07/18/21 10:00 Calculated Osmolality 285 mOsm/kg (285-295) 07/18/21 10:00 Calcium 8.0 mg/dL (8.5-10.5) L 07/18/21 10:00 Total Bilirubin 0.3 mg/dL (0.15-1.2) 07/18/21 10:00 AST 16 U/L (0-32) 07/18/21 10:00 ALT 13 U/L (0-33) 07/18/21 10:00 Alkaline Phosphatase 75 IU/L (35-105) 07/18/21 10:00 Total Protein 6.9 g/dL (6.6-8.7) 07/18/21 10:00 Albumin 4.1 g/dL (3.5-5.2) 07/18/21 10:00 Globulin 2.8 g/dL (1.3-4.6) 07/18/21 10:00 Salicylates < 0.3 mg/dL (3-10) L 07/18/21 10:00 Acetaminophen < 5.0 ug/mL (10-30) L 07/18/21 10:00 [place] < 0.1 mmol/L (0.6-1.2) L 07/18/21 10:00 Discharge Plan Discharge Condition: Stable Prescriptions: No Action trazodone 150 mg tablet 300 mg PO BEDTIME PRN (Reason: sleep) Qty: 60 4RF buspirone 10 mg tablet 10 mg PO BID Qty: 60 3RF benztropine 0.5 mg tablet 0.5 mg PO BID Qty: 30 3RF lithium carbonate 150 mg capsule 150 mg PO BID@08,16 Qty: 60 3RF paliperidone [Invega] 9 mg tablet extended release 24hr 9 mg PO BEDTIME Qty: 30 3RF metoprolol tartrate 25 mg tablet 25 mg PO BID 0RF Ozempic 0.25 mg or 0.5 mg(2 mg/1.5 mL) pen injector 0.5 mg SUBCUT Q7D 0RF Rx Instructions: ON SATURDAY diclofenac sodium 1 % gel See Rx Instructions .ROUTE .COMPLEX Qty: 100 3RF Dose Instruction: APPLY 2GRAM TOPICALLY 4X/DAY TO SINGLE ELBOW, WRIST/HAND INCLUDING PALM/FINGERS/BACK OF HAND Rx Instructions: APPLY 2 GRAM TOPICALLY 4X/DAY PRN TO SINGLE ELBOW, WRIST/HAND INCLUDING PALM/FINGERS/BACK OF HAND naproxen [Naprosyn] 500 mg tablet 500 mg PO BID PRN (Reason: pain) Qty: 20 0RF gabapentin 800 mg tablet 800 mg PO TID 0RF albuterol sulfate 90 mcg/actuation HFA aerosol inhaler 2 puff INHALATION Q4H PRN (Reason: Shortness Of Breath) 0RF calcitriol 0.25 mcg capsule 0.5 mcg PO BID 0RF rizatriptan 10 mg Tablet 10 mg PO DAILY PRN (Reason: Migraine Headache) 0RF Rx Instructions: MAY REPEAT 1 TIME. levothyroxine 25 mcg Tablet 25 mcg PO QAM 0RF meloxicam 7.5 mg Tablet 7.5 mg PO BID 0RF calcium carbonate [Calcium 500] 500 mg calcium (1,250 mg) Tablet 500 mg PO DAILY 0RF pantoprazole 40 mg Tablet,Delayed Release (Dr/Ec) 40 mg PO DAILY 0RF Tylenol Ex Str Rapid Release 500 mg Tablet 1,000 mg PO Q6H PRN (Reason: Pain) 0RF ibuprofen 200 mg Tablet 800 mg PO Q6H PRN (Reason: Pain) 0RF oxybutynin chloride 5 mg tablet 5 mg PO BID 0RF Aimovig Autoinjector 140 mg/mL auto-injector 140 mg SUBCUT Q30D 0RF tizanidine 4 mg tablet 4 mg PO Q12H PRN (Reason: Muscle Spasm) 0RF cyproheptadine 4 mg tablet 8 mg PO BEDTIME 0RF terbinafine HCl 250 mg tablet 250 mg PO DAILY 0RF Referrals: Elizabeth Lee MD [Primary Care Provider] - Coding Level of Care Code ED Director Medical Affairs for Chg Declan
[2021-07-18 10:35] LABS: Alanine Aminotransferase 13 U/L (0-33); Albumin Level 4.1 g/dL (3.5-5.2); Alkaline Phosphatase 75 IU/L (35-105); Aspartate Amino Transferase 16 U/L (0-32); Blood Urea Nitrogen 10 mg/dL (6-20); Carbon Dioxide 22 mmol/L (22-29); Chloride 103 mmol/L (98-107); Globulin 2.8 g/dL (1.3-4.6); Glomerular Filtration Rate 90.5 mL/min (90-130); Glucose 97 mg/dL (65-115); Osmolality Calculated 285 mOsm/kg (285-295); Sodium 138 mmol/L (136-145); Total Bilirubin 0.3 mg/dL (0.15-1.2); Total Protein 6.9 g/dL (6.6-8.7)
[2021-07-18 10:36] LABS: Acetaminophen < 5.0 ug/mL (10-30); Salicylate < 0.3 mg/dL (3-10)
[2021-07-18 10:37] LABS: Anion Gap 16.6 (5-19); Potassium 3.6 mmol/L (3.5-5.1)
[2021-07-18 10:43] LABS: Lithium < 0.1 mmol/L (0.6-1.2)
--- NOTE | 2021-07-18 11:41 | PC.PHAR ---
PT STATES SHE TAKES CARE OF HER OWN MEDICATIONS-STATES NOT TAKEN MOST OF HER MEDS FOR 3 WEEKS
[2021-07-18 15:37] VITALS: BP 136/93; PULSE 94; RESP 20; TEMP 36.8; O2SAT 97
[2021-07-18 15:41] VITALS: BMI 50.3
[2021-07-18] MEDS: calcitriol 0.25 mcg Capsule 0.5 MCG PO (18:28)
[2021-07-18] MEDS: oxybutynin 5 mg Tablet PO (18:29)
[2021-07-18] MEDS: metoprolol tartrate 25 mg Tablet PO (18:29)
[2021-07-18 18:30] VITALS: PULSE 76; RESP 16; O2SAT 95
[2021-07-18] MEDS: albuterol 8 gm MDI 2 PUFF INHALATION (18:30)
[2021-07-18] MEDS: gabapentin 400 mg Capsule 800 MG PO (20:53)
[2021-07-18] MEDS: trazodone 50 mg Tablet PO (20:59)
[2021-07-18] MEDS: tizanidine 4 mg Tablet PO (21:01)
[2021-07-18 22:00] VITALS: BP 108/62; PULSE 54; RESP 16; TEMP 36.8; O2SAT 93
--- NOTE | 2021-07-18 22:22 | XRR_ITS ---
PROCEDURE INFORMATION: Exam: XR Chest Exam date and time: 07/18/2021 10:37 PM Age: 46 years old Clinical indication: Other: Positive tb test; Prior surgery; Surgery type: Gb. Gastric bypass. ; Patient HX: Positive tb skin test. ; Additional info: Follow up on pos tb skin test TECHNIQUE: Imaging protocol: XR of the chest. Views: 1 view. COMPARISON: CR XR chest 2V* [id number] 04/06/2021 9:31 AM FINDINGS: Lungs: As seen in mid inspiration, the lungs are clear. Pleural spaces: Unremarkable. No pleural effusion. No pneumothorax. Heart/Mediastinum: Unremarkable. No cardiomegaly. Bones/joints: Unremarkable. XR/XR chest 1V portable [id number] IMPRESSION: Lungs clear
[2021-07-19 06:00] VITALS: BP 134/89; PULSE 78; RESP 18; TEMP 36.7; O2SAT 92
[2021-07-19] MEDS: ibuprofen 800 mg tablet PO (06:07)
[2021-07-19] MEDS: levothyroxine 25 mcg Tablet PO (06:07)
[2021-07-19] MEDS: tizanidine 4 mg Tablet PO (06:43)
[2021-07-19] MEDS: OLANZapine 5 mg ODT PO (08:28)
[2021-07-19] MEDS: pantoprazole DR 40 mg Tablet PO (08:28)
[2021-07-19] MEDS: gabapentin 400 mg Capsule 800 MG PO ×3 (08:28→21:23)
[2021-07-19] MEDS: oxybutynin 5 mg Tablet PO ×2 (08:28→17:09)
[2021-07-19] MEDS: metoprolol tartrate 25 mg Tablet PO ×2 (08:28→17:09)
[2021-07-19] MEDS: calcitriol 0.25 mcg Capsule 0.5 MCG PO ×2 (08:28→17:10)
[2021-07-19 08:47] VITALS: PULSE 80; RESP 16; O2SAT 94
[2021-07-19] MEDS: albuterol 8 gm MDI 2 PUFF INHALATION ×2 (08:50→17:55)
--- NOTE | 2021-07-19 09:23 | PC.NURSE ---
PT UP THIS MORNING. 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 CURRENT AH THAT ARE BOTHERSOME. CURRENT SI. STATES THAT AH WORSEN THIS. DENIES PLAN. 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 TEARFUL WHILE TALKING BUT DID CALM QUICKLY. PRN ZYDIS GIVEN. STAFF WILL CONTINUE TO MONITOR CLOSELY.
[2021-07-19] MEDS: haloperidol 5 mg Tablet PO (09:53)
--- NOTE | 2021-07-19 09:55 | PC.NURSE ---
REPORTS THAT ZYDIS WAS NOT EFFECTIVE AND THAT AH HAVE CONTINUED. PRN HALDOL GIVEN AT 0953. PT REMAINS TEARFUL OFF AND ON.
--- NOTE | 2021-07-19 10:09 | P.NPUHP_ITS ---
Providers/Chief Complaint Admitting Physician: Nash Greenberg MD Primary Care Provider: Elizabeth Lee MD Chief Complaint: SI WITH PLAN HPI NPU History of Present Illness Darlin Gillespie is a 46 year old female who presented to the emergency department with the following report: 46-year-old female presents emergency room complaining of suicidal ideation. States it began the last couple of days. She has been having auditory hallucinations with voices telling her to kill herself or harm herself. She been off of all of her medications including lithium for the last 3 weeks. Her plan was to take overdose of her medications. MD complaint: suicidal ideation Duration: constant History of same: Yes Relieving factors: none Exacerbating factors: none Context: not taking psychiatric medications Associated psychiatric symptoms: none Associated symptoms: Reports auditory hallucinations, depression and suicidal ideation; Deny visual hallucinations or homicidal ideation Treatments prior to arrival: none If self harm: admits thoughts of self harm and has plan She was admitted to the neuropsychiatric unit for definitive treatment of those issues. She presents today reporting that she has just been overly stressed. She reports a long history of psychiatric treatment but that she has been doing fairly well. She reports he had 2 inpatient psychiatric hospitalizations in the past 2 years to 4 years with 15 observations from 2004 2018. At least. She reports that she had been doing well and following up with her appointment [facility] but recently got very stressful in her life. Denies any significant changes in her living arrangement as she had a roommate for the past several years and has a place that is stable. 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 She reports that she is not sure if she needs a medication change but maybe she does. We discussed the risk benefits and alternatives of restarting her medications and monitoring to see if a medication change is indicated and she understood and agreed proceed as documented in this note. We reviewed the following history which she confirmed PAST PSYCHIATRIC HISTORY: -Is diagnoses of major depressive disorder recurrent with psychotic features, PTSD, methamphetamine use in remission, borderline personality disorder -Previous suicide attempt, lasting 2010; history of self-harm behavior in the form of skin cutting -Currently receives outpatient mental health care at [facility] PAST FAMILY PSYCHIATRIC HISTORY: -Noncontributory SOCIAL HISTORY: -Is on disability PAST MEDICAL HISTORY: -Hypothyroidism, obesity, chronic pain, among others Meds NPU Home Medications Medication Instructions Recorded Confirmed Last Taken Type albuterol sulfate 90 mcg/actuation 2 puff INHALATION Q4H PRN 06/12/19 07/18/21 02/08/21 History aerosol inhaler AM calcitriol 0.25 mcg capsule 0.5 mcg PO BID 06/12/19 07/18/21 1 Day Ago History ~02/08/21 AM calcium carbonate 500 mg calcium 500 mg PO DAILY 06/12/19 07/18/21 07/17/21 History (1,250 mg) tablet (Calcium 500) gabapentin 800 mg tablet 800 mg PO TID 06/12/19 07/18/21 02/08/21 History AM levothyroxine 25 mcg tablet 25 mcg PO QAM 06/12/19 07/18/21 07/15/21 History meloxicam 7.5 mg tablet 7.5 mg PO BID 06/12/19 07/18/21 07/15/21 History pantoprazole 40 mg tablet,delayed 40 mg PO DAILY 06/12/19 07/18/21 07/16/21 History release rizatriptan 10 mg tablet 10 mg PO DAILY PRN 06/12/19 07/18/21 02/07/21 History metoprolol tartrate 25 mg tablet 25 mg PO BID 08/13/19 07/18/21 07/17/21 History semaglutide (Ozempic) 0.5 mg SUBCUT Q7D ml 03/28/21 07/18/21 07/11/21 History benztropine 0.5 mg tablet 0.5 mg PO BID #30 tab 04/26/21 07/18/21 06/27/21 Rx buspirone 10 mg tablet 10 mg PO BID #60 tab 04/26/21 07/18/21 06/27/21 Rx trazodone 150 mg tablet 300 mg PO BEDTIME PRN #60 tab 04/26/21 07/18/21 Unknown Rx diclofenac sodium 1 % topical gel See Rx Instructions .ROUTE 05/15/21 07/18/21 Unknown Rx .COMPLEX #100 g lithium carbonate 150 mg capsule 150 mg PO BID@08,16 #60 cap 05/30/21 07/18/21 06/27/21 Rx naproxen 500 mg tablet (Naprosyn) 500 mg PO BID PRN #20 tab 06/10/21 07/18/21 Unknown Rx paliperidone 9 mg tablet,extended 9 mg PO BEDTIME #30 tab 06/16/21 07/18/21 06/27/21 Rx release 24 hr (Invega) acetaminophen 500 mg tablet 1,000 mg PO Q6H PRN 07/18/21 07/18/21 Unknown History albuterol sulfate 90 mcg/actuation 90 mcg INHALATION Q4-5H PRN 07/18/21 07/18/21 Unknown History aerosol inhaler cyproheptadine 4 mg tablet 8 mg PO BEDTIME 07/18/21 07/18/21 06/27/21 History erenumab-aooe 140 mg/mL 140 mg SUBCUT Q30D 07/18/21 07/18/21 07/02/21 History subcutaneous auto-injector (Aimovig Autoinjector) ibuprofen 200 mg tablet 800 mg PO Q6H PRN 07/18/21 07/18/21 Unknown History oxybutynin chloride 5 mg tablet 5 mg PO BID 07/18/21 07/18/21 07/17/21 History terbinafine HCl 250 mg tablet 250 mg PO DAILY 07/18/21 07/18/21 Unknown History tizanidine 4 mg tablet 4 mg PO Q12H PRN 07/18/21 07/18/21 Unknown History buspirone 10 mg tablet 15 mg PO TID 07/20/21 07/20/21 Unknown History cyproheptadine 4 mg tablet 8 mg PO BEDTIME 07/20/21 07/20/21 Unknown History lithium carbonate 150 mg capsule 150 mg PO BID 07/20/21 07/20/21 Unknown History paliperidone 9 mg tablet,extended 9 mg PO BEDTIME 07/20/21 07/20/21 Unknown History release 24 hr trazodone 150 mg tablet 150 mg PO BEDTIME 07/20/21 07/20/21 Unknown History Allergies Allergy/AdvReac Type Severity Reaction Status Date / Time cephalexin [From Keflex] Allergy Severe ALGY-Anaphy Verified 07/18/21 11:27 laxis doxycycline Allergy ALGY-Rash Verified 07/18/21 11:27 PFSH NPU PFSH: Medical History Anemia Bipolar I, most recent episode mixed, severe with psychotic behavior Borderline personality disorder Cannabis use disorder, moderate, dependence Chronic post-traumatic stress disorder COPD (chronic obstructive pulmonary disease) Facet arthropathy, lumbar Hypertension Hypothyroidism Lumbar disc disease with radiculopathy Onychodystrophy QUOC (obstructive sleep apnea) Plantar porokeratosis, acquired Polysubstance abuse Psychiatric care Right upper quadrant abdominal pain Vomiting Surgical History H/O esophagogastroduodenoscopy (08/23/20) 2000: With dilation after bypass 2020: normal , bypass changes History of appendectomy History of arthroscopy of both knees 2004 History of cholecystectomy History of colonoscopy (08/23/20) 2000 2020: normal History of gastric bypass 2000 Family History Mother Hypertension Cancer Father Hypertension Diabetes Cancer Brother Hypertension Diabetes Sister Diabetes Other Borderline personality disorder Hyperparathyroidism Psychiatric illness Social History Smoking and tobacco status: former smoker Alcohol intake: never Desire information about substance/drug rehabilitation?: No Household members: significant other Housing: House Marital status: Legally Current gender identity: Female Mental Status Exam MSE Comments: This is a morbidly obese white female in hospital scrubs with limited grooming and eye contact. No abnormal movements except for mild psychomotor retardation and mild ataxia using a rolling walker. Cooperative with exam in mild distress. Speech is decreased rate and volume. Mood described as depressed, affect congruent. Thought process organized. Thought contact: patient denies suicidal or homicidal ideation, there were no delusions reported or noted, patient denied auditory or visual hallucinations. Attention and concentration appeared intact and memory appeared reliable but none were formally tested. Patient is alert and oriented times three. Insight and judgment appear fair and impulse control appears limited. Vitals/I&O/Wt Last Vital Signs Temp 98.2 F 07/18/21 22:00 Pulse 54 L 07/18/21 22:00 Resp 16 07/18/21 22:00 BP 108/62 07/18/21 22:00 Pulse Ox 93 07/18/21 22:00 Weight last 48 hrs Weight 128.82 kg Weight 128.82 kg Data NPU : 07/18/21 10:00 07/18/21 10:00 A&P Assessment and plan (1) Bipolar I, most recent episode mixed, severe with psychotic behavior: Status: Chronic (2) Hypertension: Status: Acute (3) Cannabis use disorder, moderate, dependence: Status: Chronic (4) Borderline personality disorder: Status: Chronic (5) Chronic post-traumatic stress disorder: Status: Chronic (6) Morbidly obese: Status: Acute (7) QUOC (obstructive sleep apnea): Status: Acute Plan This is a 46-year-old white female with a long history of trauma, addiction and mental health challenges with multiple inpatient stays presenting reporting that she is been overwhelmed with her psychosocial condition and possibly want to consider medication changes. 1. Continue current medication. 2. Continue every 15 minute checks for safety. 3. Encourage individual, group and milieu therapies. 4. Encourage sober living treatment after discharge at the highest level of care to which he is willing to commit. Involuntary Hold Information 96 Hour Hold: 96 Hour Involuntary Admission: No Attestations NPU Medical Necessity Statement*: Inpatient hospitalization is medically necessary and the clinically appropriate intervention at this time. We will monitor medication to make changes as indicated. Patient will be in the hospital for over two midnights. Likely length of stay 3 to 5 days. Coding Level of Care Code Acute Rn Burn for Jalen Manriquez Diagnoses Bipolar I, most recent episode mixed, severe with psychotic behavior F31.64 Hypertension I10 Cannabis use disorder, moderate, dependence F12.20 Borderline personality disorder F60.3 Chronic post-traumatic stress disorder F43.12 Morbidly obese E66.01 QUOC (obstructive sleep apnea) G47.33
--- NOTE | 2021-07-19 11:39 | NPU.GN ---
[facility] Topic:Mary Carmen Lozano General Mood of Group: Patient did not attend group today.
[2021-07-19] MEDS: diclofenac 1% Topical Gel 100 gm 2 APPLIC TOPICAL ×3 (12:08→22:24)
[2021-07-19] MEDS: hyDROXYzine 25 mg Capsule 50 MG PO (12:34)
--- NOTE | 2021-07-19 12:35 | PC.NURSE ---
PT HAD NO FURTHER C/O AH AFTER THAT. IS NOW C/O ANXIETY THOUGH. STATES THAT SHE OFTEN FEELS UNLOVED AND UNWANTED. REPORTED CHEST PAIN AND INCREASED ANXIETY. BP WNL. NO SOB NOTED. PT ON PHONE LAUGHING THROUGHOUT CONVERSATION. PRN VISTARIL GIVEN AT THAT TIME. AFTER PHONE CALL PT TO WINDOW AGAIN STATING THAT SHE JUST DID NOT CARE IF . OFFERED EDUCATION AND REDIRECTION OF THOUGHT PROCESS. SPOKE OF PTS DOG WAITING ON HER TO COME HOME. PT RETURNED TO ROOM. STAFF TO CONTINUE TO MONITOR.
[2021-07-19 13:09] VITALS: BP 145/87; PULSE 110; RESP 18; TEMP 36.6; O2SAT 93
[2021-07-19] MEDS: ondansetron 4 MG Tablet PO (17:46)
--- NOTE | 2021-07-19 17:50 | ECG_ITS ---
[facility] Test Date: 2021-07-19 Pat Name: Darlin Gillespie Department: Room: 125 Gender: Female Hypoid Gear Tester: : 1975 Requested By: Nash Greenberg Order Number: [id number] Thomas MD: Urszula Mejía M.D. Measurements Intervals [place] Rate: 62 P: 48 LA: 143 QRS: 41 QRSD: 89 T: 46 QT: 409 QTc: 418 Interpretive Statements SINUS RHYTHM Compared to ECG 02/09/2021 01:41:14 Sinus arrhythmia no longer present Electronically Signed On 07-21-2021 13:43:47 CDT by Urszula Mejía M.D. [id number]
--- NOTE | 2021-07-19 17:53 | PC.NURSE ---
Addendum entered by Linda Escalante RN 07/19/21 18:21: EKG COMPLETE. UNCONFIRMED INITIAL REPORT SHOWS NORMAL SINUS RHYTHM AND NORMAL ECG. DR NOTIFIED. AWAITING LABS AT THIS TIME. PT IN ROOM. GOOD CONVERSATION, LAUGHING AND JOKING AT THIS TIME. Addendum entered by Erica Fischer RN 07/19/21 17:59: PATIENT DESCRIBES THE PAIN A SQUEEZING TYPE PAIN THAT DOES RADIATE INTO HER NECK AND DOWN HER LEFT ARM. PAIN WAS NOT REPRODUCIBLE. Original Note: PATIENT WITH REPORTS OF SUBSTERNAL CHEST PAIN THAT RADIATES TO LEFT ARM. SHE REPORTS N/V TWICE. HAS STATED SHE HAS HAD ANXIETY WITH CHEST PAIN IN THE PAST AND THIS FEELS DIFFERENT. PATIENT HAS ANXIOUS AFFECT. ORDERS RECEIVED FOR EKG AND TROPONIN
[2021-07-19 17:55] VITALS: PULSE 87; RESP 17; O2SAT 93
[2021-07-19 19:16] LABS: Troponin T (5th) Once 10 ng/L (0-10)
[2021-07-19 19:26] VITALS: BP 100/63; PULSE 63; RESP 15; TEMP 36.5; O2SAT 93
[2021-07-19] MEDS: trazodone 50 mg Tablet PO (21:22)
[2021-07-20] MEDS: tizanidine 4 mg Tablet PO ×2 (04:27→21:40)
[2021-07-20] MEDS: acetaminophen 325 mg Tablet 650 MG PO (04:27)
[2021-07-20 06:00] VITALS: BP 110/69; PULSE 74; RESP 18; TEMP 36.6; O2SAT 93
[2021-07-20] MEDS: levothyroxine 25 mcg Tablet PO (06:08)
[2021-07-20 08:07] VITALS: PULSE 76; RESP 18; O2SAT 96
[2021-07-20] MEDS: albuterol 8 gm MDI 2 PUFF INHALATION ×2 (08:07→20:15)
[2021-07-20] MEDS: calcitriol 0.25 mcg Capsule 0.5 MCG PO ×2 (08:56→18:16)
[2021-07-20] MEDS: pantoprazole DR 40 mg Tablet PO (08:57)
[2021-07-20] MEDS: ibuprofen 800 mg tablet PO (08:57)
[2021-07-20] MEDS: oxybutynin 5 mg Tablet PO ×2 (08:57→18:16)
[2021-07-20] MEDS: metoprolol tartrate 25 mg Tablet PO ×2 (08:58→18:17)
[2021-07-20] MEDS: diclofenac 1% Topical Gel 100 gm 2 APPLIC TOPICAL ×2 (08:59→17:56)
[2021-07-20] MEDS: gabapentin 400 mg Capsule 800 MG PO ×3 (11:06→21:35)
--- NOTE | 2021-07-20 11:25 | PC.NURSE ---
Prn note Patient approached staff, stating she would like to speak privately to staff. Upon speaking with staff, patient handed staff a broken end of spoon. This staff member asked patient if she was injured and she shook her head yes. This staff member and an aide examined patient in her room, noting new superficial scrapes to left forearm around tattoo. Each star point had a scrape by it, noting 5 scrapes. Patient could not contract for safety. Physician was notified. Patient was moved to a room directly in front of nurse's station. Thorough room search completed throughout unit.
--- NOTE | 2021-07-20 12:35 | NPU.GN ---
[facility] Topic:Dice Breaker General Mood of Group Patient did attend group today. Her hygiene was good and she was social in group. Patients mindset seems stable at this time. CSS met with patient and discussed [facility] services. CSS aided client in completing the [facility] intake packet for [facility] services. Patient wants case management services she already has [facility] medication provider and [facility] therapist.
[2021-07-20 13:59] VITALS: BP 127/75; PULSE 71; RESP 17; TEMP 36.7; O2SAT 95
[2021-07-20] MEDS: haloperidol 5 mg Tablet PO (14:30)
--- NOTE | 2021-07-20 18:36 | W.PM.NPUPNS ---
Subjective NPU Subjective: Patient presents today reporting that she is doing okay but reports her anxiety and mood have been really out of control. She reports that she does not want to restart her previous antipsychotics and wants something new. We discussed the risk benefits and alternatives of increasing the BuSpar to 15 mg p.o. 3 times daily and starting her on Geodon 20 mg p.o. twice daily and she understood and agreed to proceed as is documented in this note. She reports that she really wants to be stable before she is discharged as she has been overwhelmed at work and in life in general. Mental Status Exam MSE Comments: This is a morbidly obese white female in hospital scrubs with limited grooming and eye contact.? No abnormal movements except for mild psychomotor retardation and mild ataxia using a rolling walker.? Cooperative with exam in mild distress.? Speech is decreased rate and volume.? Mood described as anxious, affect congruent.? Thought process organized.? Thought contact: patient denies suicidal or homicidal ideation, there were no delusions reported or noted, patient denied auditory or visual hallucinations. Attention and concentration appeared intact and memory appeared reliable but none were formally tested. Patient is alert and oriented times three. Insight and judgment appear fair and impulse control appears limited. Vitals/I&O/Wt Last Vital Signs Temp 97.8 F 07/20/21 21:27 Pulse 67 07/20/21 21:27 Resp 19 H 07/20/21 21:27 BP 147/87 07/20/21 21:27 Pulse Ox 94 07/20/21 21:27 Data NPU : 07/18/21 10:00 07/18/21 10:00 A&P Assessment and plan (1) Bipolar I, most recent episode mixed, severe with psychotic behavior: Status: Chronic (2) Hypertension: Status: Acute (3) Cannabis use disorder, moderate, dependence: Status: Chronic (4) Borderline personality disorder: Status: Chronic (5) Chronic post-traumatic stress disorder: Status: Chronic (6) Morbidly obese: Status: Acute (7) COPD (chronic obstructive pulmonary disease): Status: Acute (8) Polysubstance abuse: Status: Acute Plan This is a 46-year-old white female with a long history of trauma, addiction and mental health challenges with multiple inpatient stays presenting reporting that she is been overwhelmed with her psychosocial condition and possibly want to consider medication changes. 1.? Continue current medication. Increase BuSpar to 50 mg p.o. 3 times daily and start Geodon 20 mg p.o. twice daily. Discontinue Invega. 2.? Continue every 15 minute checks for safety. 3.? Encourage individual, group and milieu therapies. 4.? Encourage sober living treatment after discharge at the highest level of care to which he is willing to commit. Involuntary Hold Information 96 Hour Hold: 96 Hour Involuntary Admission: No Attestations NPU Medical Necessity Statement*: Inpatient hospitalization is medically necessary and the clinically appropriate intervention at this time. We will monitor medication to make changes as indicated. Likely length of stay 2-4 days. 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
[2021-07-20 20:15] VITALS: PULSE 70; RESP 18; O2SAT 97
--- NOTE | 2021-07-20 20:23 | PC.NURSE ---
patient states i cut myself earlier with the spoon because i felt like i don't matter, i wasn't trying to kill myself
[2021-07-20 21:27] VITALS: BP 147/87; PULSE 67; RESP 19; TEMP 36.6; O2SAT 94
[2021-07-20] MEDS: ziprasidone hcl 20 mg Capsule PO (21:35)
[2021-07-20] MEDS: BuSPIRONE 10 mg Tablet 15 MG PO (21:35)
[2021-07-20] MEDS: trazodone 150 mg Tablet PO (22:00)
--- NOTE | 2021-07-21 00:04 | PC.NURSE ---
PRN ADMIN Patient c/o of muscle spasm and pain, given PRN tizanidine as ordered with noted effectiveness.
[2021-07-21 06:00] VITALS: RESP 18
[2021-07-21] MEDS: levothyroxine 25 mcg Tablet PO (06:18)
[2021-07-21] MEDS: calcitriol 0.25 mcg Capsule 0.5 MCG PO ×2 (08:27→17:59)
[2021-07-21] MEDS: pantoprazole DR 40 mg Tablet PO (08:27)
[2021-07-21] MEDS: diclofenac 1% Topical Gel 100 gm 2 APPLIC TOPICAL ×4 (08:27→20:20)
[2021-07-21] MEDS: gabapentin 400 mg Capsule 800 MG PO ×3 (08:27→20:19)
[2021-07-21] MEDS: metoprolol tartrate 25 mg Tablet PO ×2 (08:27→17:59)
[2021-07-21] MEDS: ziprasidone hcl 20 mg Capsule PO ×3 (08:28→21:01)
[2021-07-21] MEDS: BuSPIRONE 10 mg Tablet 15 MG PO ×3 (08:28→20:19)
[2021-07-21] MEDS: oxybutynin 5 mg Tablet PO ×2 (08:28→17:59)
[2021-07-21] MEDS: calcium carbonate 500 mg Chew Tablet PO (08:28)
--- NOTE | 2021-07-21 10:45 | NPU.GN ---
[facility] Topic: Mary Carmen Lozano General Mood of Group: Patient did attend and participate in group today. Patients hygiene was good. Patient was social and seems unstable at this time. Patient seems to still have self-harm thoughts and wants to act upon her thoughts.
--- NOTE | 2021-07-21 12:47 | DCPLANNER ---
IMM completed with pt on 07/21/21 @ 1228. Pt was given a copy of rights and he stated he understood his rights.
--- NOTE | 2021-07-21 12:49 | DCPLANNER ---
Pt was given a copy of rights on 07/21/21 @ 5780. Pt was given a copy of rights and stated she understood her rights.
[2021-07-21] MEDS: ibuprofen 800 mg tablet PO (12:52)
[2021-07-21] MEDS: tizanidine 4 mg Tablet PO ×2 (12:53→21:01)
[2021-07-21] MEDS: haloperidol 5 mg Tablet PO (13:04)
[2021-07-21] MEDS: albuterol 8 gm MDI 2 PUFF INHALATION (13:15)
[2021-07-21 13:16] VITALS: PULSE 67; RESP 18; O2SAT 94
--- NOTE | 2021-07-21 13:48 | PC.NURSE ---
1304 Administered 5mg haldol for pt stating the voices were telling her to harm others, not herself this time.
[2021-07-21 14:00] VITALS: BP 121/79; PULSE 62; RESP 17; TEMP 36.4; O2SAT 96
[2021-07-21] MEDS: naproxen 500 mg Tablet PO (17:59)
--- NOTE | 2021-07-21 18:48 | W.PM.NPUPNS ---
Subjective NPU Subjective: Patient has a wound that she is still with her sleep and also with her overall functioning. She reports today be the increase in BuSpar has not helped and reports that she is tolerating that we will increase it to will be considered full dose daily. Discontinued the lithium at her request investing the possibilities underlies her life Tegretol or Depakote neither of which she reports that she has had. We discussed risks, benefits and alternatives of increasing Invega, giving her home dose of trazodone at 300 milligrams and considering 1 of those moods stabilizers tomorrow and she understood and agreed to proceed as documented in this note. Mental Status Exam MSE Comments: This is a morbidly obese white female in hospital scrubs with limited grooming and eye contact.? No abnormal movements except for mild psychomotor retardation and mild ataxia using a rolling walker.? Cooperative with exam in mild distress.? Speech is decreased rate and volume.? Mood described as anxious and up-and-down with my mood, affect c slightly subdued.? Thought process organized.? Thought contact: patient denies suicidal or homicidal ideation, there were no delusions reported or noted, patient denied auditory or visual hallucinations. Attention and concentration appeared intact and memory appeared reliable but none were formally tested. Patient is alert and oriented times three. Insight and judgment appear fair and impulse control appears limited. Vitals/I&O/Wt Last Vital Signs Temp 97.6 F 07/21/21 14:00 Pulse 62 07/21/21 14:00 Resp 17 07/21/21 14:00 BP 121/79 07/21/21 14:00 Pulse Ox 96 07/21/21 14:00 Data NPU : 07/18/21 10:00 07/18/21 10:00 A&P Assessment and plan (1) Bipolar I, most recent episode mixed, severe with psychotic behavior: Status: Chronic (2) Hypertension: Status: Acute (3) Cannabis use disorder, moderate, dependence: Status: Chronic (4) Borderline personality disorder: Status: Chronic (5) Chronic post-traumatic stress disorder: Status: Chronic (6) Polysubstance abuse: Status: Acute (7) Morbidly obese: Status: Acute (8) QUOC (obstructive sleep apnea): Status: Acute Plan This is a 46-year-old white female with a long history of trauma, addiction and mental health challenges with multiple inpatient stays presenting reporting that she is been overwhelmed with her psychosocial condition and possibly want to consider medication changes. 1.? Continue current medication.? Increased BuSpar to 15 mg p.o. 3 times daily and increased Geodon to 40 mg p.o. twice daily.? Discontinued Invega. We will consider starting Depakote or Tegretol in the next day or so. 2.? Continue every 15 minute checks for safety. 3.? Encourage individual, group and milieu therapies. 4.? Encourage sober living treatment after discharge at the highest level of care to which he is willing to commit. Involuntary Hold Information 96 Hour Hold: 96 Hour Involuntary Admission: No Attestations NPU Medical Necessity Statement*: Inpatient hospitalization is medically necessary and the clinically appropriate intervention at this time. We will monitor medication to make changes as indicated. Likely length of stay 1-3 days. 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
[2021-07-21 20:35] VITALS: BP 121/87; PULSE 78; RESP 16; O2SAT 95
[2021-07-21] MEDS: trazodone 150 mg Tablet 300 MG PO (21:01)
[2021-07-22] MEDS: levothyroxine 25 mcg Tablet PO (05:37)
[2021-07-22 05:43] VITALS: PULSE 76; RESP 16; O2SAT 94
[2021-07-22] MEDS: albuterol 8 gm MDI 2 PUFF INHALATION (05:43)
[2021-07-22 05:57] VITALS: BP 98/67; PULSE 69; RESP 17; O2SAT 95
[2021-07-22 07:36] VITALS: PULSE 78; RESP 16; O2SAT 98
[2021-07-22] MEDS: BuSPIRONE 10 mg Tablet 15 MG PO ×2 (08:15→15:09)
[2021-07-22] MEDS: pantoprazole DR 40 mg Tablet PO (08:15)
[2021-07-22] MEDS: ziprasidone hcl 40 mg Capsule PO ×2 (08:16→17:37)
[2021-07-22] MEDS: calcitriol 0.25 mcg Capsule 0.5 MCG PO ×2 (08:16→17:20)
[2021-07-22] MEDS: oxybutynin 5 mg Tablet PO ×2 (08:16→17:21)
[2021-07-22] MEDS: metoprolol tartrate 25 mg Tablet PO ×2 (08:16→17:20)
[2021-07-22] MEDS: gabapentin 400 mg Capsule 800 MG PO ×2 (08:16→15:08)
[2021-07-22] MEDS: diclofenac 1% Topical Gel 100 gm 2 APPLIC TOPICAL ×3 (08:17→17:22)
[2021-07-22] MEDS: calcium carbonate 500 mg Chew Tablet PO (08:17)
[2021-07-22] MEDS: ibuprofen 800 mg tablet PO (08:53)
[2021-07-22] MEDS: tizanidine 4 mg Tablet PO (08:53)
--- NOTE | 2021-07-22 10:21 | PC.NURSE ---
PRN Medications Patient presents at nurses station at 0852 reporting back pain 8/10. PRN Tizanadine 4 mg and Ibuprofen 800 MG administered at 0854. Reassessed pain and reports back pain has improved, rating it 2/10. In day area reviewing coping skills handouts in no obvious distress.
[2021-07-22 14:00] VITALS: BP 142/88; PULSE 60; RESP 18; TEMP 36.6; O2SAT 95
[2021-07-22] MEDS: blistex lip oint 7 gm Tube 1 APPLIC TOPICAL (17:21)
--- NOTE | 2021-07-22 18:20 | P.NPUDS_ITS ---
Diagnoses at Discharge Discharge Diagnosis (1) Bipolar I, most recent episode mixed, severe with psychotic behavior: Status: Chronic (2) Hypertension: Status: Acute (3) Cannabis use disorder, moderate, dependence: Status: Chronic (4) Borderline personality disorder: Status: Chronic (5) Chronic post-traumatic stress disorder: Status: Chronic (6) Polysubstance abuse: Status: Acute (7) Morbidly obese: Status: Acute (8) QUOC (obstructive sleep apnea): Status: Acute Reason for Visit Reason for Visit: SI WITH PLAN Brief History: History of Present Illness Darlin Gillespie is a 46 year old female who presented to the emergency department with the following report: 46-year-old female presents emergency room complaining of suicidal ideation.? States it began the last couple of days.? She has been having auditory hallucinations with voices telling her to kill herself or harm herself.? She been off of all of her medications including lithium for the last 3 weeks.? Her plan was to take overdose of her medications. MD complaint: suicidal ideation Duration: constant History of same: Yes Relieving factors: none Exacerbating factors: none Context: not taking psychiatric medications Associated psychiatric symptoms: none Associated symptoms: Reports auditory hallucinations, depression and suicidal ideation; Deny visual hallucinations or homicidal ideation Treatments prior to arrival: none If self harm: admits thoughts of self harm and has plan She was admitted to the neuropsychiatric unit for definitive treatment of those issues.? She presents today reporting that she has just been overly stressed.? She reports a long history of psychiatric treatment but that she has been doing fairly well.? She reports he had 2 inpatient psychiatric hospitalizations in the past 2 years to 4 years with 15 observations from 2004 2018.? At least.? She reports that she had been doing well and following up with her appointment [facility] [place] but recently got very stressful in her life.? Denies any significant changes in her living arrangement as she had a roommate for the past several years and has a place that is stable.? 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 She reports that she is not sure if she needs a medication change but maybe she does.? We discussed the risk benefits and alternatives of restarting her medications and monitoring to see if a medication change is indicated and she understood and agreed proceed as documented in this note. We reviewed the following history which she confirmed PAST PSYCHIATRIC HISTORY: -Is diagnoses of major depressive disorder recurrent with psychotic features, PTSD, methamphetamine use in remission, borderline personality disorder -Previous suicide attempt, lasting 2010; history of self-harm behavior in the form of skin cutting -Currently receives outpatient mental health care at [facility] [place] PAST FAMILY PSYCHIATRIC HISTORY: -Noncontributory SOCIAL HISTORY: -Is on disability PAST MEDICAL HISTORY: -Hypothyroidism, obesity, chronic pain, among others Hospital Course Hospital Course She slowly acclimated to the individual, group and milieu therapies provided. There were episodes of catastrophizing and [id number] thinking etc. consistent with her cluster B pathology. We discontinued her lithium and Invega and started her on Geodon and titrated the dose to 40 mg p.o. twice daily. Her BuSpar was increased to 15 g p.o. 3 times daily. She endorsed that she was feeling better and felt she was ready to discharge. She was able to contract for safety outside the hospital prior to discharge. During the hospitalization, patient had routine laboratory studies which were within normal limits except for few outliers. Additionally there was a general medical evaluation which was also within normal limits and revealed no new acute processes. Discharge Summary: At the time of discharge, she denied psychosis or lethality. Mood and anxiety were well managed. Patient endorsed a plan to avoid all drugs of abuse and follow-up with the aftercare recommendations of the treatment team. Patient was evaluated and deemed to be absent credible lethality, and had achieved the maximum benefit from an inpatient hospitalization, so was discharged. Involuntary Hold Information 96 Hour Hold: 96 Hour Involuntary Admission: No Mental Status Exam MSE Comments: This is a morbidly obese white female in hospital scrubs with limited grooming and eye contact.? No abnormal movements except for mild psychomotor retardation and mild ataxia using a rolling walker.? Cooperative with exam in no acute distress.? Speech is more normal rate and volume.? Mood described as a little better, affect slightly subdued.? Thought process organized.? Thought contact: patient denies suicidal or homicidal ideation, there were no delusions reported or noted, patient denied auditory or visual hallucinations. Attention and concentration appeared intact and memory appeared reliable but none were formally tested. Patient is alert and oriented times three. Insight and judgment appear fair and impulse control appears limited. Discharge Data Studies Completed and Pending: Completed Studies During Hospitalization Category Date Time Status XR chest 1V asmita ble [id number] Routine Exams 07/18/21 22:22 Completed Radiology Impressions Chest X-Ray 07/18/21 22:22 IMPRESSION: Lungs clear Laboratory Results WBC 9.0 10^3/uL (4.0- 10.0) 07/18/21 10:00 RBC 4.40 10^6/uL (4.1 -5.3) 07/18/21 10:00 Hgb 14.3 g/dL (11.5-1 5.3) 07/18/21 10:00 Hct 43.1 % (37.0-47.0 ) 07/18/21 10:00 MCV 98.0 fl (81-99) 07/18/21 10:00 MCH 32.5 pg (28.0-34. 0) 07/18/21 10:00 MCHC 33.2 g/dL (30.0-3 6.0) 07/18/21 10:00 RDW 12.2 % (12.1-15.1 ) 07/18/21 10:00 Plt Count 301 10^3/cmm (130 -400) 07/18/21 10:00 MPV 10.8 fL (7.4-10.4 ) H 07/18/21 10:00 Neut % (Auto) 62.8 % 07/18/21 10:00 Lymph % (Auto) 28.8 % 07/18/21 10:00 [place] % (Auto) 5.4 % 07/18/21 10:00 Eos % (Auto) 1.9 % 07/18/21 10:00 Baso % (Auto) 0.9 % 07/18/21 10:00 Neut # (Auto) 5.66 10^3/uL (1.8 -7.7) 07/18/21 10:00 Lymph # (Auto) 2.6 10^3/uL (0.8- 4.8) 07/18/21 10:00 [place] # (Auto) 0.5 10^3/uL (0.2- 0.9) 07/18/21 10:00 Eos # (Auto) 0.2 10^3/uL (0.0- 0.8) 07/18/21 10:00 Baso # (Auto) 0.1 10^3/uL (0.0- 0.1) 07/18/21 10:00 Nucleated RBC % (a uto) 0 % 07/18/21 10:00 Nucleated RBCs # 0.0 /100WBC 07/18/21 10:00 Sodium 138 mmol/L (136-1 45) 07/18/21 10:00 Potassium 3.6 mmol/L (3.5-5 .1) 07/18/21 10:00 Chloride 103 mmol/L (98-10 7) 07/18/21 10:00 Carbon Dioxide 22 mmol/L (22-29) 07/18/21 10:00 Anion Gap 16.6 (5-19) 07/18/21 10:00 BUN 10 mg/dL (6-20) 07/18/21 10:00 Creatinine 0.7 mg/dL (0.5-0. 9) 07/18/21 10:00 GFR Calculation 90.5 mL/min (90-1 30) 07/18/21 10:00 Glucose 97 mg/dL (65-115) 07/18/21 10:00 Calculated Osmolal ity 285 mOsm/kg (285- 295) 07/18/21 10:00 Calcium 8.0 mg/dL (8.5-10 .5) L 07/18/21 10:00 Total Bilirubin 0.3 mg/dL (0.15-1 .2) 07/18/21 10:00 AST 16 U/L (0-32) 07/18/21 10:00 ALT 13 U/L (0-33) 07/18/21 10:00 Alkaline Phosphata se 75 IU/L (35-105) 07/18/21 10:00 Troponin T Gen 5 n g/L 10 ng/L (0-10) 07/19/21 18:50 Total Protein 6.9 g/dL (6.6-8.7 ) 07/18/21 10:00 Albumin 4.1 g/dL (3.5-5.2 ) 07/18/21 10:00 Globulin 2.8 g/dL (1.3-4.6 ) 07/18/21 10:00 Salicylates < 0.3 mg/dL (3-10 ) L 07/18/21 10:00 Acetaminophen < 5.0 ug/mL (10-3 0) L 07/18/21 10:00 [place] < 0.1 mmol/L (0.6 -1.2) L 07/18/21 10:00 Vitals: Last Vital Signs Temp 97.8 F 07/22/21 14:00 Pulse 60 07/22/21 14:00 Resp 18 07/22/21 14:00 BP 142/88 07/22/21 14:00 Pulse Ox 95 07/22/21 14:00 Discharge Plan Discharge Patient Disposition: Home Condition: Stable Prescriptions: New ziprasidone HCl 40 mg Capsule 40 mg PO 0900,1800 30 Days Qty: 60 1RF buspirone 10 mg Tablet 15 mg PO TID 30 Days Qty: 135 1RF Continued trazodone 150 mg tablet 300 mg PO BEDTIME PRN (Reason: sleep) Qty: 60 4RF benztropine 0.5 mg tablet 0.5 mg PO BID Qty: 30 3RF metoprolol tartrate 25 mg tablet 25 mg PO BID 0RF Ozempic 0.25 mg or 0.5 mg(2 mg/1.5 mL) pen injector 0.5 mg SUBCUT Q7D 0RF Rx Instructions: ON SATURDAY diclofenac sodium 1 % gel See Rx Instructions .ROUTE .COMPLEX Qty: 100 3RF Dose Instruction: APPLY 2GRAM TOPICALLY 4X/DAY TO SINGLE ELBOW, WRIST/HAND INCLUDING PALM/FINGERS/BACK OF HAND Rx Instructions: APPLY 2 GRAM TOPICALLY 4X/DAY PRN TO SINGLE ELBOW, WRIST/HAND INCLUDING PALM/FINGERS/BACK OF HAND naproxen [Naprosyn] 500 mg tablet 500 mg PO BID PRN (Reason: pain) Qty: 20 0RF gabapentin 800 mg tablet 800 mg PO TID 0RF albuterol sulfate 90 mcg/actuation HFA aerosol inhaler 2 puff INHALATION Q4H PRN (Reason: Shortness Of Breath) 0RF calcitriol 0.25 mcg capsule 0.5 mcg PO BID 0RF rizatriptan 10 mg Tablet 10 mg PO DAILY PRN (Reason: Migraine Headache) 0RF Rx Instructions: MAY REPEAT 1 TIME. levothyroxine 25 mcg Tablet 25 mcg PO QAM 0RF meloxicam 7.5 mg Tablet 7.5 mg PO BID 0RF pantoprazole 40 mg Tablet,Delayed Release (Dr/Ec) 40 mg PO DAILY 0RF acetaminophen 500 mg Tablet 1,000 mg PO Q6H PRN (Reason: Pain) 0RF ibuprofen 200 mg Tablet 800 mg PO Q6H PRN (Reason: Pain) 0RF oxybutynin chloride 5 mg tablet 5 mg PO BID 0RF Aimovig Autoinjector 140 mg/mL auto-injector 140 mg SUBCUT Q30D 0RF tizanidine 4 mg tablet 4 mg PO Q12H PRN (Reason: Muscle Spasm) 0RF terbinafine HCl 250 mg tablet 250 mg PO DAILY 0RF cyproheptadine 4 mg tablet 8 mg PO BEDTIME 0RF Discontinued buspirone 10 mg tablet 10 mg PO BID Qty: 60 3RF lithium carbonate 150 mg capsule 150 mg PO BID@08,16 Qty: 60 3RF paliperidone [Invega] 9 mg tablet extended release 24hr 9 mg PO BEDTIME Qty: 30 3RF calcium carbonate [Calcium 500] 500 mg calcium (1,250 mg) Tablet 500 mg PO DAILY 0RF cyproheptadine 4 mg tablet 8 mg PO BEDTIME 0RF albuterol sulfate 90 mcg/actuation HFA aerosol inhaler 90 mcg INHALATION Q4-5H PRN (Reason: Shortness Of Breath Or Wheezing) 0RF buspirone 10 mg tablet 15 mg PO TID 0RF lithium carbonate 150 mg capsule 150 mg PO BID 0RF paliperidone 9 mg tablet extended release 24hr 9 mg PO BEDTIME 0RF trazodone 150 mg tablet 150 mg PO BEDTIME 0RF Discharge Orders: Discharge Order (Routine); Ordered 07/22/21 Ordered By: Nash Greenberg Referrals: Elizabeth Lee MD [Primary Care Provider] - Grace Marr [facility] [Therapist] - 07/26/21 7:45 am Idalia Block PMHNP [Staff Physician] - 07/28/21 10:15 am Discharge Diet: Diabetic Discharge Activity: Resume usual activity Patient Instructions: Stress (DC), Suicide Prevention (DC), Opioid Safety Discharge Attestations NPU Time Spent in Discharge Care*: less than 30 min Specific Discharge Activities: Specific discharge activities: educating patient, discussing with telephonic case manager/social workers/dc planners, documenting/other paperwork and evaluating patient/reviewing data Status at Discharge: Cognitive status at discharge: cognitively intact , Behavioral status at discharge: cooperative , Coding Level of Care Code Acute Chg FW DC note Diagnoses Bipolar I, most recent episode mixed, severe with psychotic behavior F31.64 Hypertension I10 Cannabis use disorder, moderate, dependence F12.20 Borderline personality disorder F60.3 Chronic post-traumatic stress disorder F43.12 Polysubstance abuse F19.10 Morbidly obese E66.01 QUOC (obstructive sleep apnea) G47.33
[2021-07-22 18:24] VITALS: BP 142/88; PULSE 60; RESP 18; TEMP 36.6; O2SAT 95
== END 2021-07-22 18:51 | disposition home or self-care (01) | DRG 885 ==
LOC: ER 11:10 → NP 14:35
PROVIDERS: Admitting Provider Psychiatry & Neurology Psychiatry; Emergency Provider Family Medicine; PCP Internal Medicine; Visit Provider Psychiatry & Neurology Psychiatry
DX: F31.64 Bipolar disorder, current episode mixed, severe, with psychotic features (principal); R45.851 Suicidal ideations; Z68.43 Body mass index [BMI] 50.0-59.9, adult; Z91.14 Patient's other noncompliance with medication regimen; Z87.891 Personal history of nicotine dependence; E03.9 Hypothyroidism, unspecified; E66.01 Morbid (severe) obesity due to excess calories; G89.29 Other chronic pain; Z98.84 Bariatric surgery status; I10 Essential (primary) hypertension; F12.20 Cannabis dependence, uncomplicated; F60.3 Borderline personality disorder; F43.12 Post-traumatic stress disorder, chronic; G47.33 Obstructive sleep apnea (adult) (pediatric)
CPT/HCPCS: 71045; 80053; 80178; 80307; 84484; 85025; 93005; 94640; 97150; 97165; 99215; 99285; J3535; Q0162

== ENCOUNTER 2021-07-27 14:52 | Outpatient (CLI) | payer MEDICARE, MEDICAID, SELFPAY ==
[2021-01-31 15:41] VITALS: BP 126/82; BMI 52.4
--- NOTE | 2021-07-27 15:27 | MM_ITS ---
WS: [id number] BILATERAL SCREENING 3D TOMOSYNTHESIS DIGITAL MAMMOGRAM WITH CAD HISTORY: SCREENING COMPARISON: 05/13/2020 and 03/17/2019 Bilateral CC and MLO views submitted. Computer aided detection analyzed. Breast composition: There are scattered areas of fibroglandular density. No suspicious masses, microc alcifications or architectural distortion. Bilateral intramammary lymph nodes. MM/[id number] IMPRESSION: BI-RADS: 2-Benign FOLLOW UP: 1 Year Follow-up
== END 2021-07-27 14:53 | disposition home or self-care (01) ==
PROVIDERS: PCP Internal Medicine; Visit Provider Internal Medicine
DX: Z12.31 Encounter for screening mammogram for malignant neoplasm of breast (principal)
CPT/HCPCS: 77063; 77067

== ENCOUNTER → 2021-07-28 10:20 | Outpatient (BNVA) | payer MEDICARE, MEDICAID, SELFPAY ==
[2021-01-31 15:41] VITALS: BP 126/82; BMI 52.4
== END ==
PROVIDERS: PCP Internal Medicine; Visit Provider Nurse Practitioner Psychiatric/Mental Health
DX: F31.64 Bipolar disorder, current episode mixed, severe, with psychotic features (principal); F43.12 Post-traumatic stress disorder, chronic; F60.3 Borderline personality disorder; F12.20 Cannabis dependence, uncomplicated; Z79.899 Other long term (current) drug therapy
CPT/HCPCS: 99214

== ENCOUNTER → 2021-08-17 10:55 | Outpatient (BNVA) | payer MEDICARE, MEDICAID, SELFPAY ==
[2021-01-31 15:41] VITALS: BP 126/82; BMI 52.4
== END ==
PROVIDERS: PCP Internal Medicine; Visit Provider Nurse Practitioner Psychiatric/Mental Health
DX: F31.64 Bipolar disorder, current episode mixed, severe, with psychotic features (principal); F43.12 Post-traumatic stress disorder, chronic; F60.3 Borderline personality disorder; F12.20 Cannabis dependence, uncomplicated; Z79.899 Other long term (current) drug therapy
CPT/HCPCS: 99214

== ENCOUNTER → 2021-09-01 11:15 | Outpatient (BNVA) | payer MEDICARE, MEDICAID, SELFPAY ==
[2021-01-31 15:41] VITALS: BP 126/82; BMI 52.4
== END ==
PROVIDERS: PCP Internal Medicine; Visit Provider Nurse Practitioner Psychiatric/Mental Health
DX: F31.64 Bipolar disorder, current episode mixed, severe, with psychotic features (principal); Z79.899 Other long term (current) drug therapy; F43.12 Post-traumatic stress disorder, chronic; F60.3 Borderline personality disorder; F12.20 Cannabis dependence, uncomplicated
CPT/HCPCS: 99214

== ENCOUNTER → 2021-09-14 11:01 | Outpatient (BNVA) | payer MEDICARE, MEDICAID, SELFPAY ==
[2021-01-31 15:41] VITALS: BP 126/82; BMI 52.4
== END ==
PROVIDERS: PCP Internal Medicine; Visit Provider Nurse Practitioner Psychiatric/Mental Health
DX: F31.64 Bipolar disorder, current episode mixed, severe, with psychotic features (principal); F43.12 Post-traumatic stress disorder, chronic; F60.3 Borderline personality disorder; F12.20 Cannabis dependence, uncomplicated; Z79.899 Other long term (current) drug therapy
CPT/HCPCS: 80053; 80061; 80306; 83036; 99214

== ENCOUNTER → 2021-09-19 13:59 | Outpatient (BNVA) | payer MEDICARE, MEDICAID, SELFPAY ==
[2021-01-31 15:41] VITALS: BP 126/82; BMI 52.4
== END ==
PROVIDERS: PCP Internal Medicine; Referring Provider Nurse Practitioner Family; Visit Provider Orthopaedic Surgery
DX: M18.12 Unilateral primary osteoarthritis of first carpometacarpal joint, left hand (principal)
CPT/HCPCS: 20600; 99212; J0702

== ENCOUNTER → 2021-09-28 08:20 | Outpatient (BNVA) | payer MEDICAID, SELFPAY ==
[2021-01-31 15:41] VITALS: BP 126/82; BMI 52.4
== END ==
PROVIDERS: PCP Internal Medicine; Visit Provider Nurse Practitioner Psychiatric/Mental Health
DX: F43.12 Post-traumatic stress disorder, chronic (principal); F31.64 Bipolar disorder, current episode mixed, severe, with psychotic features; Z79.899 Other long term (current) drug therapy; F60.3 Borderline personality disorder; F12.20 Cannabis dependence, uncomplicated
CPT/HCPCS: 99214

== ENCOUNTER 2022-02-07 08:28 | Outpatient (CLI) | payer MEDICARE, MEDICAID, SELFPAY ==
[2021-01-31 15:41] VITALS: BP 126/82; BMI 52.4
--- NOTE | 2022-02-07 08:46 | MM_ITS ---
WS: [id number] BILATERAL SCREENING DIGITAL TOMOSYNTHESIS MAMMOGRAM WITH CAD HISTORY: SCREEN COMPARISON: 07/27/2021, 05/13/2020 and 03/17/2019 Bilateral CC and MLO views with tomosynthesis and synthetic mammography submitted. Computer aided det ection analyzed. Difficult positioning of the patient makes evaluation of the entire breast limited. Breast composition: There are scattered areas of fibroglandular density. No suspicious masses, microc alcifications or architectural distortion. Overlapping folds and soft tissue. Benign calcifications. MM/[id number] IMPRESSION: BI-RADS: 2-Benign FOLLOW UP: 1 Year Follow-up
== END 2022-02-07 08:29 | disposition home or self-care (01) ==
LOC: RAD 08:29
PROVIDERS: PCP Internal Medicine; Visit Provider Internal Medicine
DX: Z12.31 Encounter for screening mammogram for malignant neoplasm of breast (principal)
CPT/HCPCS: 77063; 77067

== ENCOUNTER 2022-02-08 11:27 | Emergency (ER) | payer MEDICARE, MEDICAID, SELFPAY ==
[2021-01-31 15:41] VITALS: BP 126/82; BMI 52.4
--- NOTE | 2022-02-08 11:29 | W.ED.PSYCHS ---
HPI - Psych General: Chief Complaint: Psychiatric Symptoms Stated Complaint: SI Time Seen by Provider: 02/08/22 11:29 History of Present Illness: Ms. Gillespie is a 47-year-old lady with complex past medical history including psychiatric illness, hypertension, thyroid disorder, COPD, chronic pain presenting to the emergency department due to suicidal ideation with a plan. She reports worsening symptoms for 2 to 3 weeks including frequent thoughts of suicide by drug overdose. She endorses increased social stressors and decreased support system. She reports compliance with her medication regimen however this is no longer helping. She feels exhausted all the time and spoke with her therapist and [facility] who recommended she come to the emergency department. She does endorse history of psychiatric hospitalization however has been frustrated with her psychiatric care here at [facility] and reports this is why she waits till the last minute to come end. Otherwise denies medical complaints. Intensity symptoms is moderate to severe. Course has worsened. No other specific changes in health, exacerbating, or alleviating factors identified. Onset (ago): week(s) Duration: getting worse History of same: Yes Exacerbating factors: other (Social stressors) Context: significant life stressor If self harm: admits thoughts of self harm and has plan Review of Systems General: Reports: 10 or more systems reviewed and unremarkable except in HPI and below PFSH ED PFSH: Medical History Anemia Bipolar I, most recent episode mixed, severe with psychotic behavior Borderline personality disorder Cannabis use disorder, moderate, dependence Chronic post-traumatic stress disorder COPD (chronic obstructive pulmonary disease) Facet arthropathy, lumbar Hypertension Hypothyroidism Lumbar disc disease with radiculopathy Onychodystrophy QUOC (obstructive sleep apnea) Plantar porokeratosis, acquired Polysubstance abuse Psychiatric care Right upper quadrant abdominal pain Vomiting Surgical History H/O esophagogastroduodenoscopy (08/23/20) 2000: With dilation after bypass 2020: normal , bypass changes History of appendectomy History of arthroscopy of both knees 2004 History of cholecystectomy History of colonoscopy (08/23/20) 2000 2020: normal History of gastric bypass 2000 Family History Mother Hypertension Cancer Father Hypertension Diabetes Cancer Brother Hypertension Diabetes Sister Diabetes Other Borderline personality disorder Hyperparathyroidism Psychiatric illness Social History Smoking and tobacco status: former smoker Alcohol intake: never Desire information about substance/drug rehabilitation?: No Household members: significant other Housing: House Marital status: Legally Current gender identity: Female Female Reproductive History: Date of last menstrual period: 01/22/21 Physical Exam Const: COMMON NORMALS: alert GENERAL APPEARANCE: cooperative and well developed HENMT: COMMON NORMALS: normocephalic and atraumatic HEAD & SCALP: normocephalic and atraumatic Eye: COMMON NORMALS: conjunctivae normal CONJUNCTIVA: Yes conjunctivae normal SCLERA: sclerae normal Neck/C-Spine: COMMON NORMALS: supple GENERAL: Yes trachea midline Resp: COMMON NORMALS: normal respiratory effort EFFORT & INSPECTION: Yes able to speak in complete sentences Cardio: COMMON NORMALS: regular rate and regular rhythm RATE: regular rate RHYTHM: regular rhythm GI: COMMON NORMALS: Soft to palpation PALPATION: Yes Soft to palpation and No Tenderness to palpation present (GI) Extremity: GENERAL: Yes normal exam except as noted and No edema Neuro: COMMON NORMALS: moves all extremities SENSORIUM/ORIENTATION: Yes alert and No Orientation impaired Psych: COMMON NORMALS: mental status grossly normal and Normal thought process present MOOD & AFFECT: Yes depressed mood and Yes tearful THOUGHT PROCESS: Normal thought process present Course ED course: - Patient was seen and evaluated by me at bedside - Vital signs obtained - Initial evaluation notable for exam as above, somewhat tearful with depressed affect - Labs personally interpreted by me - Labs notable for no leukocytosis, normal hemoglobin. No acute metabolic abnormality to explain symptoms or requiring intervention. TSH normal. No evidence of urinary tract infection. Toxic ingestions negative with exception of benzodiazepines and THC on urine drug screen - No indication for imaging at this time - Based on ED evaluation at this point there is no obvious condition that would preclude the patient from inpatient management of psychiatric concerns. - Given prior experiences at our [facility] patient request that the look for accepting facility elsewhere. - Based on ED evaluation inpatient management is reasonable given suicidal ideation with plan Vital Signs: Vital signs: Vital Signs Temperature 97.1 F L 02/08/22 11:38 Pulse Rate 79 02/09/22 02:46 Respiratory Rate 16 02/09/22 02:46 Blood Pressure 141/78 02/09/22 02:46 Pulse Oximetry 97 02/09/22 02:46 Oxygen Delivery Me thod 02/08/22 17:38 MDM - Psych Medical Decision Making 47-year-old lady with psychiatric history presenting with suicidal ideation with plan to overdose. Laboratory studies and vital signs reviewed. Patient is satisfactory for inpatient management of psychiatric concerns. Medical Records I reviewed the patient's medical records. Lab Data I reviewed the patient's lab results. : 02/08/22 12:19 02/08/22 12:19 Laboratory Results WBC 8.4 10^3/uL (4.0-10.0) 02/08/22 12:19 RBC 3.77 10^6/uL (4.1-5.3) L 02/08/22 12:19 Hgb 11.5 g/dL (11.5-15.3) 02/08/22 12:19 Hct 35.3 % (37.0-47.0) L 02/08/22 12:19 MCV 93.6 fl (81-99) 02/08/22 12:19 MCH 30.5 pg (28.0-34.0) 02/08/22 12:19 MCHC 32.6 g/dL (30.0-36.0) 02/08/22 12:19 RDW 12.6 % (12.1-15.1) 02/08/22 12:19 Plt Count 360 10^3/cmm (130-400) 02/08/22 12:19 MPV 10.7 fL (7.4-10.4) H 02/08/22 12:19 Neut % (Auto) 60.2 % 02/08/22 12:19 Lymph % (Auto) 28.1 % 02/08/22 12:19 [place] % (Auto) 9.2 % 02/08/22 12:19 Eos % (Auto) 1.2 % 02/08/22 12:19 Baso % (Auto) 0.8 % 02/08/22 12:19 Neut # (Auto) 5.06 10^3/uL (1.8-7.7) 02/08/22 12:19 Lymph # (Auto) 2.4 10^3/uL (0.8-4.8) 02/08/22 12:19 [place] # (Auto) 0.8 10^3/uL (0.2-0.9) 02/08/22 12:19 Eos # (Auto) 0.1 10^3/uL (0.0-0.8) 02/08/22 12:19 Baso # (Auto) 0.1 10^3/uL (0.0-0.1) 02/08/22 12:19 Nucleated RBC % (auto) 0 % 02/08/22 12:19 Nucleated RBCs # 0.0 /100WBC 02/08/22 12:19 Sodium 139 mmol/L (136-145) 02/08/22 12:19 Potassium 4.3 mmol/L (3.5-5.1) 02/08/22 12:19 Chloride 106 mmol/L (98-107) 02/08/22 12:19 Carbon Dioxide 22 mmol/L (22-29) 02/08/22 12:19 Anion Gap 15.3 (5-19) 02/08/22 12:19 BUN 10 mg/dL (6-20) 02/08/22 12:19 Creatinine 0.6 mg/dL (0.5-0.9) 02/08/22 12:19 GFR Calculation 107.6 mL/min (90-130) 02/08/22 12:19 Glucose 92 mg/dL (65-115) 02/08/22 12:19 Calculated Osmolality 287 mOsm/kg (285-295) 02/08/22 12:19 Calcium 7.6 mg/dL (8.5-10.5) L 02/08/22 12:19 Total Bilirubin 0.2 mg/dL (0.15-1.2) 02/08/22 12:19 AST 24 U/L (0-32) 02/08/22 12:19 ALT 19 U/L (0-33) 02/08/22 12:19 Alkaline Phosphatase 96 U/L (35-105) 02/08/22 12:19 Total Protein 6.5 g/dL (6.6-8.7) L 02/08/22 12:19 Albumin 3.5 g/dL (3.5-5.2) 02/08/22 12:19 Globulin 3.0 g/dL (1.3-4.6) 02/08/22 12:19 TSH 0.88 uIU/mL (0.27-4.20) 02/08/22 12:19 HCG, Qual Negative (Negative) 02/08/22 12:19 Urine Color Yellow (Yellow) 02/08/22 12:19 Urine Appearance Clear (CLEAR) 02/08/22 12:19 Urine pH 5 (5-7) 02/08/22 12:19 Ur Specific [place] 1.010 (1.005-1.030) 02/08/22 12:19 Urine Protein Neg (Negative) 02/08/22 12:19 Urine Glucose (UA) Norm (Normal) 02/08/22 12:19 Urine Ketones Negative (Negative) 02/08/22 12:19 Urine Blood Neg (Negative) 02/08/22 12:19 Urine Nitrate Negative (Negative) 02/08/22 12:19 Urine Bilirubin Neg (Negative) 02/08/22 12:19 Urine Urobilinogen Norm mg/dL (Negative) 02/08/22 12:19 Ur Leukocyte Esterase Negative (Negative) 02/08/22 12:19 Salicylates < 0.3 mg/dL (3-10) L 02/08/22 12:19 Urine Opiates Screen Negative ng/mL (Negative) 02/08/22 12:26 Acetaminophen 13.4 ug/mL (10-30) 02/08/22 12:19 Ur Barbiturates Screen Negative ng/mL (Negative) 02/08/22 12:26 Ur Phencyclidine Scrn Negative ng/mL (Negative) 02/08/22 12:26 Ur Amphetamines Screen Negative ng/mL (Negative) 02/08/22 12:26 U Benzodiazepines Scrn Positive ng/mL (Negative) H 02/08/22 12:26 Urine Cocaine Screen Negative ng/mL (Negative) 02/08/22 12:26 U Marijuana (THC) Screen Positive ng/mL (Negative) H 02/08/22 12:26 Ethyl Alcohol < 10 mg/dL (0-10) 02/08/22 12:19 SARS-CoV-2 Ag (Rapid) negative (Negative) 02/08/22 12:24 Discharge Plan Discharge Patient Disposition: Xfer Psychiatric Hosp Clinical Impression: Suicidal ideation Condition: Stable Referrals: Elizabeth Lee MD [Primary Care Provider] - Coding Level of Care Code ED Channel Account Manager for Chg Fwd Exam Comprehensive
[2022-02-08 11:38] VITALS: BP 142/82; PULSE 93; RESP 18; TEMP 36.2; O2SAT 98
[2022-02-08 11:39] VITALS: BMI 47.5
[2022-02-08 12:28] LABS: Basophils # 0.1 10^3/uL (0.0-0.1); Basophils % 0.8 %; Eosinophils # 0.1 10^3/uL (0.0-0.8); Eosinophils % 1.2 %; Hematocrit 35.3 % (37.0-47.0); Hemoglobin 11.5 g/dL (11.5-15.3); Lymphocytes # 2.4 10^3/uL (0.8-4.8); Lymphocytes % 28.1 %; Mean Corpuscular HGB Conc 32.6 g/dL (30.0-36.0); Mean Corpuscular Hemoglobin 30.5 pg (28.0-34.0); Mean Corpuscular Volume 93.6 fl (81-99); Mean Platelet Volume 10.7 fL (7.4-10.4); Monocytes # 0.8 10^3/uL (0.2-0.9); Monocytes % 9.2 %; Neutrophils # 5.06 10^3/uL (1.8-7.7); Neutrophils % 60.2 %; Nucleated Red Blood Cells % 0 %; Platelet Count 360 10^3/cmm (130-400); Red Blood Count 3.77 10^6/uL (4.1-5.3); Red Cell Distribution Width 12.6 % (12.1-15.1); White Blood Count 8.4 10^3/uL (4.0-10.0)
[2022-02-08 12:36] LABS: HCG Qualitative Urine. Negative (Negative)
[2022-02-08 12:40] LABS: Add Urine Microscopic? NO; Charge for UA Resulting for Rev
[2022-02-08 12:42] LABS: Bilirubin Urine Neg (Negative); Blood Urine Neg (Negative); Glucose Urine UA Norm (Normal); Ketones Urine Negative (Negative); Leukocyte Esterase Urine Negative (Negative); Nitrate Urine Negative (Negative); Protein Urine Neg (Negative); Urine Appearance Clear (CLEAR); Urine Color Yellow (Yellow); Urobilinogen Urine Norm (Negative); pH Urine 5 (5-7)
[2022-02-08 12:56] LABS: SARS Covid-2 Antigen negative (Negative)
[2022-02-08 12:58] LABS: Acetaminophen 13.4 ug/mL (10-30); Alanine Aminotransferase 19 U/L (0-33); Albumin Level 3.5 g/dL (3.5-5.2); Alkaline Phosphatase 96 U/L (35-105); Anion Gap 15.3 (5-19); Aspartate Amino Transferase 24 U/L (0-32); Blood Urea Nitrogen 10 mg/dL (6-20); Calcium 7.6 mg/dL (8.5-10.5); Carbon Dioxide 22 mmol/L (22-29); Chloride 106 mmol/L (98-107); Glomerular Filtration Rate 107.6 mL/min (90-130); Glucose 92 mg/dL (65-115); Osmolality Calculated 287 mOsm/kg (285-295); Potassium 4.3 mmol/L (3.5-5.1); Sodium 139 mmol/L (136-145); Thyroid Stimulating Hormone 0.88 uIU/mL (0.27-4.20); Total Bilirubin 0.2 mg/dL (0.15-1.2); Total Protein 6.5 g/dL (6.6-8.7)
[2022-02-08 12:59] LABS: Amphetamines Screen Urine Negative (Negative); Barbiturates Screen Urine Negative (Negative); Benzodiazepines Screen Urine Positive (Negative); Cocaine Screen Urine Negative (Negative); Opiate Screen Urine Negative (Negative); PCP Screen Urine Negative (Negative); THC Screen Urine Positive (Negative)
[2022-02-08 13:01] LABS: Alcohol Level < 10 mg/dL (0-10); Salicylate < 0.3 mg/dL (3-10)
[2022-02-08 17:38] VITALS: BP 101/63; PULSE 75; RESP 18; O2SAT 96
[2022-02-08] MEDS: LORazepam 1 mg Tablet PO (21:46)
--- NOTE | 2022-02-08 21:52 | PC.NURSE ---
Updated patient on the finding a bed process. She was upset that no one had updated her about the wait. PT was educated on the process and she felt calm after the talk.
[2022-02-09] MEDS: trazodone 150 mg Tablet 300 MG PO (00:35)
[2022-02-09 00:47] VITALS: BP 141/78; PULSE 79; RESP 16; O2SAT 97
[2022-02-09 02:46] VITALS: BP 141/78; PULSE 79; RESP 16; O2SAT 97
== END 2022-02-09 01:45 ==
PROVIDERS: Emergency Provider Emergency Medicine; PCP Internal Medicine
DX: R45.851 Suicidal ideations (principal); Z87.891 Personal history of nicotine dependence; Z60.9 Problem related to social environment, unspecified; E03.9 Hypothyroidism, unspecified; I10 Essential (primary) hypertension; G89.29 Other chronic pain
CPT/HCPCS: 80053; 80306; 80307; 81003; 81025; 84443; 85025; 87426; 99285